=== PATIENT | male | born 1945 | race Caucasian/White ===

== ENCOUNTER 2016-07-11 12:29 | Inpatient (IN) | payer OTHER, MEDICARE, BC ==
--- NOTE | 2016-07-11 12:46 | ER Document Report ---
ED Medical Screen (RME) - General Chief Complaint: S/S of Possible Stroke Stated Complaint: GAIT UNSTEADY Time Seen by Provider: 07/11/16 12:46 Notes: 74-year-old male who is accompanied by a friend after being sent over by an outside facility for "confusion". Patient supposedly was unable to talk starting around 4 AM. Patient went on a piece of paper that it was 3 AM. Patient denies any headache, chest pain, weakness or numbness to the upper or lower extremities. The friend states the patient has had no recent illness, nausea, vomiting, or other review of systems. Patient has a history of a CABG, intracranial hemorrhage, stroke, and right-sided BKA. TRAVEL OUTSIDE OF THE [place] IN LAST 30 DAYS: No - Related Data Allergies/Adverse Reactions: No Known Allergies Allergy (Verified 07/11/16 12:35) Past Medical History - Past Medical History Cardiac Medical History: Reports: Hx Heart Attack, Hx Hypercholesterolemia, Hx Hypertension Pulmonary Medical History: Reports: Hx COPD Neurological Medical History: Reports: Hx Cerebrovascular Accident - Intracranial hemorrhage Endocrine Medical History: Reports: Hx Diabetes Mellitus Type 1, Hx Diabetes Mellitus Type 2 Renal/ Medical History: Denies: Hx Peritoneal Dialysis Musculoskeltal Medical History: Reports Hx Arthritis Psychiatric Medical History: Reports: Hx Dementia, Hx Depression Past Surgical History: Reports: Hx Abdominal Surgery - hernia, Hx Cardiac Catheterization - w/stents, Hx Coronary Stent, Hx Herniorrhaphy, Hx Orthopedic Surgery - RIGHT FOOT LISFRANC'S ORIF, Hx Tonsillectomy - and adnoids - Immunizations Hx Diphtheria, Pertussis, Tetanus Vaccination: Yes
[2016-07-11 13:18] LABS: ABSOLUTE BASOPHILS # (AUTO) 0.1 10^3/uL (0.0-0.2); ABSOLUTE EOSINOPHILS # (AUTO) 0.2 10^3/uL (0.0-0.6); ABSOLUTE LYMPHOCYTES (AUTO) 1.6 10^3/uL (0.5-4.7); ABSOLUTE MONOCYTES (AUTO) 0.7 10^3/uL (0.1-1.4); ABSOLUTE NEUT (AUTO) 5.2 10^3/uL (1.7-8.2); BASOPHILS % (AUTO) 0.7 % (0-2); HEMATOCRIT 41.2 % (37.9-51.0); HEMOGLOBIN 13.8 g/dL (13.5-17.0); HGB HCT DIFFERENCE 0.2; LYMPHOCYTES % (AUTO) 20.5 % (13-45); MEAN CORPUSCULAR HEMOGLOBIN 30.6 pg (27.0-33.4); MEAN CORPUSCULAR HGB CONC 33.4 g/dL (32.0-36.0); MEAN CORPUSCULAR VOLUME 92 fl (80-97); MONOCYTES % (AUTO) 8.7 % (3-13); RED CELL DISTRIBUTION WIDTH 14.8 % (11.5-14.0); SEGMENTED NEUTROPHILS % (AUTO) 68.1 % (42-78); WHITE BLOOD COUNT 7.7 10^3/uL (4.0-10.5)
[2016-07-11 13:27] LABS: PARTIAL THROMBOPLASTIN TIME 21.3 SEC (23.5-35.8); PROTHROMBIN TIME 11.7 SEC (11.4-15.4)
--- NOTE | 2016-07-11 13:47 | ER Document Report ---
ED General - General Chief Complaint: S/S of Possible Stroke Stated Complaint: POSSIBLE STROKE SYMPTOMS Time Seen by Provider: 07/11/16 12:46 Information source: Patient, Relative Cannot obtain history due to: Other Notes: Patient is aphasic 70-year-old male history of CVA coronary disease presents with inability to speak. Patient notes since 5:00 this morning he has been unable to speak appropriately. he understands everything that I state he has difficulty speaking and is unable to talk appropriately but is able to write on a piece of paper TRAVEL OUTSIDE OF THE [place] IN LAST 30 DAYS: No - HPI Onset: This morning Onset/Duration: Sudden Quality of pain: No pain Severity: Mild Pain Level: Denies Associated symptoms: Other Exacerbated by: Denies Relieved by: Denies Similar symptoms previously: Yes Recently seen / treated by doctor: Yes - Related Data Allergies/Adverse Reactions: No Known Allergies Allergy (Verified 07/11/16 12:35) Past Medical History - Social History Smoking Status: Current Every Day Smoker Cigarette use (# per day): Yes Chew tobacco use (# tins/day): No Smoking Education Provided: No Family History: Reviewed & Not Pertinent, DM Patient has suicidal ideation: No Patient has homicidal ideation: No - Past Medical History Cardiac Medical History: Reports: Hx Heart Attack, Hx Hypercholesterolemia, Hx Hypertension Pulmonary Medical History: Reports: Hx COPD Neurological Medical History: Reports: Hx Cerebrovascular Accident - Intracranial hemorrhage Endocrine Medical History: Reports: Hx Diabetes Mellitus Type 1, Hx Diabetes Mellitus Type 2 Renal/ Medical History: Denies: Hx Peritoneal Dialysis Musculoskeltal Medical History: Reports Hx Arthritis Psychiatric Medical History: Reports: Hx Dementia, Hx Depression Past Surgical History: Reports: Hx Abdominal Surgery - hernia, Hx Cardiac Catheterization - w/stents, Hx Coronary Stent, Hx Herniorrhaphy, Hx Orthopedic Surgery - RIGHT FOOT LISFRANC'S ORIF, Hx Tonsillectomy - and adnoids - Immunizations Hx Diphtheria, Pertussis, Tetanus Vaccination: Yes Hx Pneumococcal Vaccination: 11/27/11 Review of Systems - Review of Systems Notes: PHYSICAL EXAMINATION: GENERAL: Well-appearing, well-nourished and in no acute distress. HEAD: Atraumatic, normocephalic. EYES: Pupils equal round and reactive to light, extraocular movements intact, sclera anicteric, conjunctiva are normal. ENT: Nares patent, oropharynx clear without exudates. Moist mucous membranes. NECK: Normal range of motion, supple without lymphadenopathy LUNGS: Breath sounds clear to auscultation bilaterally and equal. No wheezes rales or rhonchi. HEART: Regular rate and rhythm without murmurs ABDOMEN: Soft, nontender, nondistended abdomen. No guarding, no rebound. No masses appreciated. Musculoskeletal: Normal range of motion, no pitting or edema. No cyanosis. NEUROLOGICAL: Cranial nerves grossly intact. Aphasia, normal gait. Normal sensory, motor exams PSYCH: Normal mood, normal affect. SKIN: Warm, Dry, normal turgor, no rashes or lesions noted. Physical Exam - Vital signs Vitals: Temp Pulse Resp BP Pulse Ox 97.9 F 55 L 18 181/67 H 95 07/11/16 12:38 07/11/16 12:38 07/11/16 12:38 07/11/16 12:38 07/11/16 12:38 Course - Re-evaluation Re-evalutation: 07/11/16 13:47 Dr. Cheung was paged 07/11/16 13:48 Patient is out of the timeframe for thrombolytics but has obvious CVA 07/11/16 13:50 Dr Man states he is not his patient 07/11/16 14:[address] Orellana - Vital Signs Vital signs: Temp Pulse Resp BP Pulse Ox 97.9 F 54 L 20 175/87 H 99 07/11/16 12:38 07/11/16 13:15 07/11/16 14:02 07/11/16 14:02 07/11/16 14:02 - Laboratory Result Diagrams: 07/11/16 13:00 07/11/16 14:00 Laboratory results interpreted by me: 07/11/16 07/11/16 07/11/16 13:00 13:00 14:00 RDW 14.8 H APTT 21.3 L Potassium 5.1 H BUN 26 H Glucose 184 H - Diagnostic Test Radiology reviewed: Image reviewed, Reports reviewed - Encephalomalacia Discharge - Discharge Clinical Impression: Aphasia Cerebrovascular accident (CVA) Qualifiers: CVA mechanism: unspecified Qualified Code(s): I63.9 - Cerebral infarction, unspecified Condition: Stable Disposition: ADMITTED INPATIENT Admitting Provider: Hospitalist Unit Admitted: Telemetry
[2016-07-11 14:46] LABS: ANION GAP 7 (5-19); BLOOD UREA NITROGEN 26 mg/dL (7-20); CALCIUM 9.3 mg/dL (8.4-10.2); CARBON DIOXIDE 29 mmol/L (22-30); CHLORIDE 102 mmol/L (98-107); CREATININE RESULT 1.05 mg/dL (0.52-1.25); GLUCOSE 184 mg/dL (75-110); POTASSIUM 5.1 mmol/L (3.6-5.0); SODIUM 138.2 mmol/L (137-145)
[2016-07-11] MEDS ORDERED: ASPIRIN 325 MG TABLET PO ONE (14:50)
[2016-07-11] MEDS ORDERED: DEXTROSE 50%-WATER 25 GM/50 ML DISP.SYRIN IV PRN ×2 (16:00)
[2016-07-11] MEDS ORDERED: ONDANSETRON HCL INJ/PF 4 MG/2 ML SDV IV PRN (16:00)
[2016-07-11] MEDS ORDERED: ACETAMINOPHEN 650 MG SUPP.RECT PR PRN (16:00)
[2016-07-11] MEDS ORDERED: DEXTROSE 40% GEL 15 GM TUBE PO PRN ×2 (16:00)
[2016-07-11] MEDS ORDERED: LABETALOL HCL INJ 20 MG/4 ML DISP.SYRIN IV PRN (16:00)
[2016-07-11] MEDS ORDERED: GLUCAGON,HUMAN RECOMB 1 MG INJ SUBCUT PRN (16:00)
--- NOTE | 2016-07-11 16:15 | ER Document Report ---
ED NIH Stroke Scale - NIH Stroke Scale When completed:: Before Alteplase *: 1. NIH scale should be completed with appropriate accompanying assessment tools. *: 2. The NIH should reflect what the patient is capable of doing and should not be coached by the clinician. 1a. Level of Consciousness: 0=Alert;keenly responsive -: 1=Drowsy -: 2=Obtunded -: 3=Coma/unresponsive or reflex to noxious stimuli. 1a. Responses: 0 1b. Orientation Questions: a. What month is it? -: b. How old are you? -: 0=Answers both questions correctly. -: 1=Answers one question correctly or patient is intubated or has orotracheal trauma. -: 2=Answers neither question correctly. 1b. Responses: 0 1c. Response to commands: a. Open and close eyes? -: b. Arm Rest Builder and release hand? -: Credit is given despite weakness. Demonstration of task is permitted. Substitute command if hands cannot be used. -: 0=Performs both tasks correctly -: 1=Performs one task correctly -: 2=Performs neither task correctly 1c. Responses: 0 2. Gaze: Establish eye contact and instruct patient to "Follow my finger" -: 0=Normal -: 1=Partial gaze palsy. Gaze is abnormal in one or both eyes, but where forced deviation or total gaze paresis is not present. -: 2=Forced deviation or total gaze paresis. 2. Responses: 0 3. Visual Spence: Sees fingers in all four quadrants. -: 0=No visual loss. -: 1=Partial hemianopsia. -: 2=Complete hemianopsia. -: 3=Bilateral hemianopsia (including Cortical blindness) 3. Responses: 0 4. Facial Movement: Instruct patient to: -: a. Show me your teeth -: b. Raise your eyebrows -: c. Close your eyes -: d. Smile -: 0=Normal symmetrical movement -: 1=Minor paralysis (flattened nasolabial fold, asymmetry on smiling). -: 2=Partial paralysis (total or near total paralysis of lower face). -: 3=Complete paralysis of upper and lower face 4. Responses: 0 5. Motor functions (left arm): Alternate sides and extend each arm with palms down (90 degrees if sitting or 45 degrees for supine). -: 0=No drift;limb holds for full 10 seconds. -: 1=Drift; limb holds but drifts down before full 10 seconds, but does not hit bed. -: 2=Some effort against gravity; limb cannot get to or maintain position. -: 3=No effort against gravity; limb falls. -: 4=No movement. -: UN=Amputation, joint fusion, explain in comments. 5. Responses (left arm): 0 5. Motor Functions (right arm): Alternate sides and extend each arm with palms down (90 degrees if sitting or 45 degrees for supine). -: 0=No drift;limb holds for full 10 seconds. -: 1=Drift; limb holds but drifts down before full 10 seconds, but does not hit bed. -: 2=Some effort against gravity; limb cannot get to or maintain position. -: 3=No effort against gravity; limb falls. -: 4=No movement. -: UN=Amputation, joint fusion, explain in comments. 5. Responses (right arm): 0 6. Motor Functions (left leg): With patient lying supine, alternate sides and extend each leg (30 degrees always while supine). -: 0=No drift, leg holds position for full 5 seconds -: 1=Drift; leg falls before full 5 seconds but does not hit bed. -: 2=Some effort against gravity, leg falls to bed but some effort against gravity. -: 3=No effort against gravity, leg falls to bed immediately. -: 4=No movement. -: UN=Amputation, joint fusion; explain in comments. 6. Responses (left leg): 0 6. Motor Functions (right leg): With patient lying supine, alternate sides and extend each leg (30 degrees always while supine). -: 0=No drift, leg holds position for full 5 seconds -: 1=Drift; leg falls before full 5 seconds but does not hit bed. -: 2=Some effort against gravity, leg falls to bed but some effort against gravity. -: 3=No effort against gravity, leg falls to bed immediately. -: 4=No movement. -: UN=Amputation, joint fusion; explain in comments. 6. Responses (right leg): 0 7. Limb Ataxia: With eyes open instruct patient to: -: a. "Touch your finger to your nose". -: b. "Touch your heel to your do" -: 0=Absent -: 1=Present in one limb. -: 2=Present in two limbs. -: UN=Amputation or joint fusion; explain in comments. 7. Responses: 0 8. Sensory: Test sensation using pinprick or noxious stimuli. Test as many body parts as possible. -: 0=Normal;no sensory loss -: 1=Mile to moderate sensory loss (patient feels pin prick but is less sharp on affected side). -: 2=Severe or total sensory loss. 8. Responses: 0 9. Best Language: Instruct patient to: -: a. "Describe what you see in this picture." -: b. "Name the items in this picture." -: c. "Read these sentences." -: 0=No aphasia, normal -: 1=Mild to moderate aphasia. -: 2=Severe aphasia -: 3=Mute, global aphasia, no usable speech or auditory comprehension. 9. Responses: 3 10. Articulation, Dysarthia: Instruct patient to: -: "Read these words" or "Repeat these words" -: 0=Normal -: 1=Mild to moderate; patient may slur some words but can be understood without difficulty. -: 2=Severe; patients speech so slurred as to be unintelligible in the absence of dysphasia. -: UN=Intubated or other physical barrier, explain in comments. 10. Responses: 2 11. Extinction or inattention: 0=No abnormality -: 1= Visual, tactile, auditory, spatial, or personal inattention or extinction to bilateral simulation in one or the sensory modalities. -: 2=Profound zaid-inattention or zaid-inattention to more than one modality; does not recognize own hand. 11. Responses: 0 Total Score: 5
--- NOTE | 2016-07-11 16:48 | PDOC H&P ---
History of Present Illness Admission Date/PCP: 07/11/16 16:01 Patient complains of: Aphasia History of Present Illness: MAHSA CORREA is a 70 year old male, with history of hypertension, type II diabetes mellitus, hyperlipidemia, prior strokes, cerebral aneurysm status post craniotomy and clipping brought to the emergency room because of inability to talk. Patient apparently was doing well until about early this morning upon waking up between 5-6 the patient is unable to talk. Patient thought it would get better. Patient had some drooling of saliva, but no choking sensation, no headache, double vision nor swallowing difficulty report. Symptom persisted, his brother called him and noticed that he is unable to talk and express himself. He was brought to the emergency room for evaluation. Patient denies any new focal weakness on the left or on the right. 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 There is no syncopal episode, dizziness. Patient is able to understand but unable to speak what he thinks. In the emergency room head CT shows chronic encephalomalacia on the right frontal lobe doubt any acute abnormality, with aneurysmal clips and craniotomy scar. Patient reports multiple stents and will not be able to have MRI. Patient was then referred for admission. Past Medical History Past Medical History: Medication reconciliation pending verification from the patient's pharmacist Cardiac Medical History: Reports: Coronary Artery Disease, Myocardial Infarction , Hyperlipidema, Hypertension Pulmonary Medical History: Reports: Chronic Obstructive Pulmonary Disease (COPD) , Sleep Apnea Neurological Medical History: Reports: Ischemic CVA - With minimal residual weakness, Other - Cerebral aneurysm Endocrine Medical History: Reports: Diabetes Mellitus Type 1, Diabetes Mellitus Type 2 Renal/ Medical History: Reports: Chronic Kidney Disease, Other - BPH Musculoskeltal Medical History: Reports: Arthritis Psychiatric Medical History: Reports: Dementia, Depression Past Surgical History Past Surgical History: Reports: Cardiac Catheterization - w/stents, Coronary Stent, Herniorrhaphy, Orthopedic Surgery - RIGHT FOOT LISFRANC'S ORIF, Tonsillectomy - and adnoids Social History Information Source: Relative Smoking Status: Current Every Day Smoker Frequency of Alcohol Use: None Hx Recreational Drug Use: No Drugs: None, Marijuana Hx Prescription Drug Abuse: No Family History Family History: DM Parental Family History Reviewed: Yes Children Family History Reviewed: Yes Sibling(s) Family History Reviewed.: Yes Medication/Allergy Allergies/Adverse Reactions: No Known Allergies Allergy (Verified 07/11/16 12:35) Review of Systems Constitutional: ABSENT: chills, fever(s), headache(s), night sweats, weight gain , weight loss Eyes: ABSENT: visual disturbances Ears: ABSENT: hearing changes Nose, Mouth, and Throat: ABSENT: headache(s), mouth pain, sore throat Cardiovascular: ABSENT: chest pain, dyspnea on exertion, edema, orthropnea, palpitations Respiratory: ABSENT: cough, dyspnea, hemoptysis Gastrointestinal: ABSENT: abdominal pain, constipation, diarrhea, hematemesis, hematochezia, melena, nausea, vomiting Genitourinary: ABSENT: difficulty urinating, dysuria, hematuria Musculoskeletal: PRESENT: other - Wears prostheses on the right lower extremity. ABSENT: back pain, joint swelling Integumentary: ABSENT: pruritus, rash, wounds Neurological: PRESENT: abnormal gait, abnormal speech. ABSENT: confusion, dizziness, focal weakness, syncope Psychiatric: ABSENT: anxiety, depression, homidical ideation, suicidal ideation Endocrine: ABSENT: cold intolerance, heat intolerance, polydipsia, polyuria Hematologic/Lymphatic: ABSENT: easy bleeding, easy bruising Physical Exam Vital Signs: Temp Pulse Resp BP Pulse Ox 97.9 F 54 L 22 H 149/74 H 100 07/11/16 12:38 07/11/16 13:15 07/11/16 15:01 07/11/16 15:01 07/11/16 15:01 General appearance: PRESENT: no acute distress, cooperative, obese Head exam: PRESENT: atraumatic, normocephalic Eye exam: PRESENT: conjunctiva pink, EOMI, PERRLA. ABSENT: scleral icterus Ear exam: PRESENT: normal external ear exam. ABSENT: drainage Mouth exam: PRESENT: moist, neck supple, tongue midline Throat exam: ABSENT: post pharyngeal erythema, tonsillar erythema Neck exam: ABSENT: carotid bruit, JVD, lymphadenopathy, thyromegaly Respiratory exam: PRESENT: clear to auscultation manan, unlabored. ABSENT: rales , rhonchi, wheezes Cardiovascular exam: PRESENT: RRR, +S1, +S2. ABSENT: diastolic murmur, gallop, rubs, systolic murmur Pulses: PRESENT: normal dorsalis pedis pul Vascular exam: PRESENT: normal capillary refill GI/Abdominal exam: PRESENT: normal bowel sounds, soft. ABSENT: distended, guarding, mass, organolmegaly, rebound, tenderness Rectal exam: PRESENT: deferred Extremities exam: PRESENT: full ROM, other - Leg paresthesias in the right/ below knee amputation on the right. ABSENT: calf tenderness, clubbing, pedal edema Neurological exam: PRESENT: alert, awake, other - Manual muscle testing is 4+ over 5 bilaterally both upper and lower extremity Psychiatric exam: PRESENT: appropriate affect, normal mood. ABSENT: homicidal ideation, suicidal ideation Skin exam: PRESENT: dry, intact, warm. ABSENT: cyanosis, rash Results Impressions: Head CT 07/11/16 12:47 IMPRESSION: Chronic encephalomalacia in the right frontal lobe with surgical changes and with no acute intracranial pathology. Assessment & Plan - Diagnosis (1) Aphasia Is this a current diagnosis for this admission?: Yes (2) Hyperkalemia Is this a current diagnosis for this admission?: Yes (3) Diabetes Qualifiers: Diabetes mellitus type: type 2 Diabetes mellitus complication status: with unspecified complications Diabetes mellitus residential insulin use: without residential use Qualified Code(s): E11.8 - Type 2 diabetes mellitus with unspecified complications Is this a current diagnosis for this admission?: Yes (4) Essential hypertension Is this a current diagnosis for this admission?: Yes (5) COPD (chronic obstructive pulmonary disease) Qualifiers: COPD type: unspecified COPD Qualified Code(s): J44.9 - Chronic obstructive pulmonary disease, unspecified Is this a current diagnosis for this admission?: Yes (6) Hyperlipidemia Qualifiers: Hyperlipidemia type: unspecified Qualified Code(s): E78.5 - Hyperlipidemia, unspecified Is this a current diagnosis for this admission?: Yes (7) Obstructive sleep apnea Is this a current diagnosis for this admission?: Yes (8) BPH (benign prostatic hyperplasia) Qualifiers: Prostatic enlargement morphology: unspecified morphology Lower urinary tract symptom presence: presence of symptoms unspecified Qualified Code(s ): N40.0 - Benign prostatic hyperplasia without lower urinary tract symptoms Is this a current diagnosis for this admission?: Yes (9) Dementia Qualifiers: Dementia type: unspecified type Dementia behavioral disturbance: without behavioral disturbance Qualified Code(s): F03.90 - Unspecified dementia without behavioral disturbance Is this a current diagnosis for this admission?: Yes (10) Coronary artery disease Qualifiers: Coronary Disease-Associated Artery/Lesion type: unspecified vessel or lesion type [place] vs. transplanted heart: [place] heart Associated angina: with unspecified angina Qualified Code(s): I25.119 - Atherosclerotic heart disease of [place] coronary artery with unspecified angina pectoris Is this a current diagnosis for this admission?: Yes - Time Time Spent: 50 to 70 Minutes - Inpatient Certification Based on my medical assessment, after consideration of the patient's comorbidities, presenting symptoms, or acuity I expect that the services needed warrant INPATIENT care.: Yes I certify that my determination is in accordance with my understanding of Medicare's requirements for reasonable and necessary INPATIENT services [42 CFR 412.3e].: Yes Medical Necessity: Need Close Monitoring Due to Risk of Patient Decompensation, Need for Neurological Checks, Risk of Diagnosis Which Will Require Inpatient Eval/Care/Monitoring Post Hospital Care: D/C Panel Beater Documentation - Plan Summary Plan Summary: The patient will be admitted to telemetry. Unable to do MRI due to multiple stents and clips from prior operations. We will do a follow-up CT of the brain 48 hours later. We will check carotid Doppler, 2-D echocardiogram, lipid panel , hemoglobin A1c. We will correct hyperkalemia and monitor electrolytes. We will have physical therapy as well as speech therapy to evaluate swallowing. I will hold basal insulin and put her on sliding scale at this time, keep him nothing by mouth except medications. DVT prophylaxis with Lovenox will be placed. Further testing depends on the initial evaluation as outlined above.
[2016-07-11] MEDS: INSULIN REG, HUMAN 100 UNIT/ML 3 ML VIAL (PYX) SUBCUT PRN ×2 (17:22→23:14)
[2016-07-11] MEDS ORDERED: SODIUM POLYSTYRENE SULFONATE 15 GM/60 ML PO ONE (17:30)
[2016-07-11] MEDS ORDERED: LABETALOL HCL INJ 200 MG/40 ML VIAL IV PRN (17:57)
[2016-07-11] MEDS ORDERED: ENOXAPARIN SODIUM INJ 40 MG/0.4 ML DISP.SYRIN SUBCUT ONE (18:00)
--- NOTE | 2016-07-11 22:13 | EKG REPORT ---
SEVERITY:- NORMAL ECG - SINUS RHYTHM : Confirmed by: Johanne Araiza MD 11-Jul-2016 22:11:42
[2016-07-11] MEDS: PRIMIDONE 50 MG TABLET PO SCH (23:01)
[2016-07-11] MEDS: MEMANTINE HCL 10 MG TABLET PO SCH (23:01)
[2016-07-11] MEDS: FAMOTIDINE INJ/PF 20 MG/2 ML SDV IV SCH (23:02)
[2016-07-11] MEDS: GABAPENTIN 100 MG CAPSULE PO SCH (23:02)
[2016-07-11] MEDS: DIVALPROEX SODIUM 250 MG TABLET.DR PO SCH (23:02)
[2016-07-12] MEDS: GABAPENTIN 100 MG CAPSULE PO SCH ×3 (06:00→23:21)
[2016-07-12] MEDS: ENOXAPARIN SODIUM INJ 40 MG/0.4 ML DISP.SYRIN SUBCUT SCH (08:00)
[2016-07-12] MEDS: FAMOTIDINE INJ/PF 20 MG/2 ML SDV IV SCH ×2 (10:00→23:22)
[2016-07-12] MEDS ORDERED: ASPIRIN 300 MG SUPP, RECTAL PR SCH (10:00)
[2016-07-12] MEDS: MEMANTINE HCL 10 MG TABLET PO SCH ×2 (10:00→23:22)
[2016-07-12] MEDS ORDERED: ASPIRIN 81 MG TABLET, ENT COATED PO ONE (11:41)
[2016-07-12] MEDS ORDERED: GABAPENTIN 100 MG CAPSULE ONE (15:37)
--- NOTE | 2016-07-12 16:36 | PROGRESS NOTE E ---
Progress Note NAME: MAHSA CORREA : 1945 AGE: 70Y DATE: 07/12/2016 ROOM: 315 SUBJECTIVE: No reported new weakness. Patient still unable to talk. Still unable to express himself. Patient denies any new weakness. Denies any choking sensation. No chest pain or shortness of breath. OBJECTIVE: VITAL SIGNS: Blood pressure highest systolic was 183, diastolic was 138 highest. Currently, systolic at 170 and diastolic at 74. Heart rate of 64. Respirations of 16. Patient's temperature 97.9. GENERAL: Patient is awake and alert. Responds to questions by nodding head or saying okay with a finger. HEENT: Extraocular muscle movements are intact. No significant facial asymmetry. NECK: There is no jugular venous distention on the neck. LUNGS: Lung sounds are clear to auscultation bilateral with no wheezing or rales. HEART: Regular. No gallops. ABDOMEN: Soft, nondistended, nontender. Bowel sounds are present. LOWER EXTREMITIES: Below-knee amputation on the right with leg prosthesis, not edematous on the left. Manual muscle testing is about 4/5 to 5/5 bilateral and equal. LABORATORY: Initial laboratory are pending. ASSESSMENT: 1. Expressive aphasia. 2. Hyperkalemia. 3. Type 2 diabetes mellitus without long-term use of insulin. 4. Essential hypertension. 5. Chronic obstructive pulmonary disease. 6. Hyperlipidemia. 7. Obstructive sleep apnea. 8. Benign prostatic hypertrophy. 9. Early dementia without behavioral disturbance. 10. Coronary artery disease without angina. PLAN: We will obtain a followup head CT in the morning. Awaiting carotid Doppler and 2-D echocardiogram. We will recheck potassium level. Physical therapy, as well as speech therapy evaluation. Continue antiplatelet therapy. Continue to hold antihypertensive medication at this time, other than as needed labetalol for systolic blood pressure greater than 180 and diastolic blood pressure greater than 110. DICTATING PHYSICIAN: ADRIANA SHEARER M.D. [id number] PHY#: [id number] ID: [id number] JOB#: [id number] ACCT: [id number] cc: >
--- NOTE | 2016-07-12 16:36 | XCELERA REPORT ---
[address] [address] Transthoracic Echocardiogram Report Name: MAHSA CORREA Age: 70 yrs Gender: Male : 1945 Patient Status: Inpatient Patient Location: \S\10\S\A Study Date: 07/12/2016 09:30 AM Height: 70 in Weight: 265 lb BSA: 2.4 m2 Procedure: A complete two-dimensional transthoracic echocardiogram was performed (2D, M-mode, spectral and color flow Doppler). The study was technically adequate with some images being suboptimal in quality. Reason For Study: stroke Ordering Physician: ADRIANA SHEARER Performed By: Marylin Doyle Interpretation Summary Left ventricular systolic function is low normal. There is mild concentric left ventricular hypertrophy. The left ventricle is grossly normal size. Doppler measurements suggest pseudonormalized left ventricular relaxation, which is associated with grade II/IV or mild to moderate diastolic dysfunction Wall motion cannot be accurately commented on, but no definite regional wall motion abnormalities noted. The right ventricle is mildly dilated. The right ventricular systolic function is normal. The left atrium is mildly dilated. The right atrium is normal in size There is a trace to mild amount of mitral regurgitation There is no mitral valve stenosis. There is no aortic valve stenosis There is a trace to mild amount of aortic regurgitation There is a trace or physiologic amount of tricuspid regurgitation Tricuspid regurgitation jet envelope not well defined to measure RV systolic pressure accurately. The aortic root is not well visualized. The inferior vena cava was not well visualized There is no pericardial effusion. No definite cardiac source of CVA/TIA noted on this particular trans- thoracic study. Consider MEL if clinically indicated. May consider mobile cardiac telemetry monitoring (MCT) for ruling out transient AFIB. MMode/2D Measurements \T\ Calculations RVDd: 3.9 cm LVIDd: 4.9 cm FS: 24.0 % Ao root diam: IVSd: 0.99 cm LVIDs: 3.7 cm EDV(Teich): 3.4 cm LVPWd: 0.86 cm 112.4 ml Ao root area: ESV(Teich): 58.8 ml 8.9 cm2 EF(Teich): 47.7 % LA dimension: 3.8 cm LVLd ap4: 8.4 cm SV(MOD-sp4): EDV(MOD-sp4): 64.0 ml 108.0 ml LVLs ap4: 7.1 cm ESV(MOD-sp4): 44.0 ml EF(MOD-sp4): 59.3 % Doppler Measurements \T\ Calculations MV E max lauri: MV P1/2t max lauri: Ao V2 max: AI max lauri: 48.4 cm/sec 48.9 cm/sec 127.7 cm/sec 392.3 cm/sec MV A max lauri: MV P1/2t: Ao max PG: AI max P.8 cm/sec 178.4 msec 6.5 mmHg 61.6 mmHg MV E/A: 0.52 MVA(P1/2t): 1.2 cm2 AI dec slope: MV dec slope: 166.5 cm/sec2 80.2 cm/sec2 AI P1/2t: MV dec time: 690.2 msec 0.58 sec LV V1 max PG: PA V2 max: TR max lauri: 5.2 mmHg 68.1 cm/sec 188.9 cm/sec LV V1 max: PA max P.9 mmHg TR max P.0 cm/sec 14.3 mmHg Left Ventricle The left ventricle is grossly normal size. There is mild concentric left ventricular hypertrophy. Left ventricular systolic function is low normal. Doppler measurements suggest pseudonormalized left ventricular relaxation, which is associated with grade II/IV or mild to moderate diastolic dysfunction. Wall motion cannot be accurately commented on, but no definite regional wall motion abnormalities noted. Right Ventricle The right ventricle is mildly dilated. There is normal right ventricular wall thickness. The right ventricular systolic function is normal. Atria The right atrium is normal in size. The left atrium is mildly dilated. Interarterial septum not well visualized and not well dopplered. Cannot comment on ASD/PFO presence. Mitral Valve The mitral valve is grossly normal. There is no mitral valve stenosis. There is a trace to mild amount of mitral regurgitation. Aortic Valve The aortic valve is grossly normal. There is no aortic valve stenosis. There is a trace to mild amount of aortic regurgitation. Tricuspid Valve The tricuspid valve is not well visualized, but is grossly normal. There is no tricuspid stenosis. There is a trace or physiologic amount of tricuspid regurgitation. Tricuspid regurgitation jet envelope not well defined to measure RV systolic pressure accurately. Pulmonic Valve The pulmonic valve is not well visualized. Great Vessels The aortic root is not well visualized. The inferior vena cava was not well visualized. Effusions There is no pericardial effusion. Incidental Findings No definite cardiac source of CVA/TIA noted on this particular trans- thoracic study. Consider MEL if clinically indicated. May consider mobile cardiac telemetry monitoring (MCT) for ruling out transient AFIB. : ADRIANA SHEARER > Yari Gaona
[2016-07-12] MEDS: DIVALPROEX SODIUM 250 MG TABLET.DR PO SCH (23:21)
[2016-07-12] MEDS: PRIMIDONE 50 MG TABLET PO SCH (23:21)
[2016-07-12] MEDS: INSULIN LISPRO 100 UNIT/ML 3 ML VIAL SUBCUT PRN (23:22)
[2016-07-13] MEDS: GABAPENTIN 100 MG CAPSULE PO SCH ×3 (05:40→21:46)
[2016-07-13] MEDS: ASPIRIN 81 MG TABLET, CHEWABLE PO SCH (10:51)
[2016-07-13] MEDS: FAMOTIDINE INJ/PF 20 MG/2 ML SDV IV SCH ×2 (10:51→21:48)
[2016-07-13] MEDS: MEMANTINE HCL 10 MG TABLET PO SCH ×2 (10:51→21:47)
[2016-07-13] MEDS: ENOXAPARIN SODIUM INJ 40 MG/0.4 ML DISP.SYRIN SUBCUT SCH (10:52)
--- NOTE | 2016-07-13 11:45 | Physician Advisory Note ---
Physician Advisor ProgressNote .: Pursuant to the plan for [facility], I have reviewed the medical record for this patient. Physician Advisor Statement: Possible documentation opportunities if attending agrees: 1. "acute expressive aphasia, suspect due to " [need causality of "sx dx.s" spelled out explicitly] As always, if concerned about any unstable VS or abnormal labs, please comment on them & note what doing about them, & please document each day the potential clinical problems you are concerned could occur if pt not kept in hospital for tx at this time. Thanks for your help with documentation accuracy/specificity improvement! Marge Short MD [facility] Physician Advisor, Fellow of Hospital Medicine
[2016-07-13] MEDS: INSULIN LISPRO 100 UNIT/ML 3 ML VIAL SUBCUT PRN ×3 (13:25→21:48)
--- NOTE | 2016-07-13 13:34 | PROGRESS NOTE E ---
Progress Note NAME: MAHSA CORREA : 1945 AGE: 70Y DATE: 07/13/2016 ROOM: 315 SUBJECTIVE: There is no new weakness reported. Patient still unable to voice out or express himself. There is no new focal weakness. Denies any swallowing difficulty. Tolerating oral intake well. Noted, however, to have dark urine. Patient denies any dizziness or syncope. OBJECTIVE: VITAL SIGNS: Blood pressure 164/76, a pulse 63, respirations 20. Patient is afebrile. Speech: Patient remains aphasic. NECK: There is no jugular venous distention. CARDIAC: Heart is regular with no gallops or murmurs. . RESPIRATORY: Lung sounds are clear to auscultation bilateral. No wheezing or rales. ABDOMEN: Is soft, nondistended. Bowel sounds are present. EXTREMITIES: Lower extremity nonedematous on the left. Below-knee amputation on the right. LABORATORY: CT scan shows no acute abnormality. ASSESSMENT: 1. EXPRESSIVE APHASIA. 2. HYPERKALEMIA. 3. TYPE 2 DIABETES MELLITUS WITHOUT LONG-TERM USE OF INSULIN. 4. HYPERTENSION, ESSENTIAL. 5. CHRONIC OBSTRUCTIVE PULMONARY DISEASE. 6. HYPERLIPIDEMIA. 7. OBSTRUCTIVE SLEEP APNEA. 8. BPH. 9. EARLY DEMENTIA WITHOUT BEHAVIORAL DISTURBANCE. 10. CORONARY ARTERY DISEASE WITHOUT ANGINA. PLAN: 1. We will obtain a urinalysis and a urine culture. 2. Awaiting carotid Doppler. Echocardiogram did not reveal any significant valvular defect. In the meantime, blood pressure seems to be getting uncontrolled. I will resume antihypertensive medications. We will begin him on metoprolol as well as lisinopril. We will, likewise, begin his Lipitor. Awaiting rehabilitation recommendation. DICTATING PHYSICIAN: ADRIANA SHEARER M.D. [id number] [id number] ID: [id number] JOB#: [id number] ACCT: [id number] cc: >
[2016-07-13 17:45] LABS: ANION GAP 7 (5-19); BLOOD UREA NITROGEN 18 mg/dL (7-20); CARBON DIOXIDE 30 mmol/L (22-30); CHLORIDE 104 mmol/L (98-107); CHOLESTEROL 133.45 mg/dL (0-200); CREATININE RESULT 0.96 mg/dL (0.52-1.25); GLUCOSE 174 mg/dL (75-110); POTASSIUM 4.3 mmol/L (3.6-5.0); TRIGLYCERIDES 370 mg/dL (<150)
[2016-07-13 17:46] LABS: DIRECT LDL 48 mg/dL (<100); Direct HDL 38 mg/dL (>40)
[2016-07-13 20:51] LABS: APPEARANCE,URINE SLIGHTLY-CLOUDY; BILIRUBIN,URINE NEGATIVE (NEGATIVE); GLUCOSE, URINE 150 mg/dL (NEGATIVE); KETONES,URINE NEGATIVE (NEGATIVE); LEUKOCYTE ESTERASE,URINE LARGE (NEGATIVE); NITRITE,URINE POSITIVE (NEGATIVE); PROTEIN,URINE 30 mg/dL (NEGATIVE); URINE SPECIFIC GRAVITY 1.013; UROBILINOGEN,URINE NEGATIVE mg/dL (<2.0)
[2016-07-13] MEDS: METOPROLOL TARTRATE 25 MG TABLET PO SCH (21:46)
[2016-07-13] MEDS: PRIMIDONE 50 MG TABLET PO SCH (21:46)
[2016-07-13] MEDS: ATORVASTATIN CALCIUM 40 MG TABLET PO SCH (21:47)
[2016-07-13] MEDS: TAMSULOSIN HCL 0.4 MG CAP.SR.24H PO SCH (21:47)
[2016-07-13] MEDS: DIVALPROEX SODIUM 250 MG TABLET.DR PO SCH (21:47)
[2016-07-14] MEDS: GABAPENTIN 100 MG CAPSULE PO SCH ×3 (06:02→22:15)
[2016-07-14 07:18] LABS: ANION GAP 10 (5-19); BLOOD UREA NITROGEN 13 mg/dL (7-20); CALCIUM 8.9 mg/dL (8.4-10.2); CARBON DIOXIDE 27 mmol/L (22-30); CHLORIDE 102 mmol/L (98-107); CREATININE RESULT 0.97 mg/dL (0.52-1.25); GLUCOSE 202 mg/dL (75-110); POTASSIUM 4.2 mmol/L (3.6-5.0); SODIUM 139.3 mmol/L (137-145)
[2016-07-14] MEDS ORDERED: ERTAPENEM SODIUM INJ 1 GM VIAL IV ONE (10:31)
--- NOTE | 2016-07-14 10:44 | PDOC PROGRESS REPORT ---
Subjective Progress Note for:: 07/14/16 Subjective:: Able to utter some words but still aphasic. No SOB, N/V, CP, chill, fever, SOB. Urinalysis showed gram neg rods on culture. Prior hx shows multiple ESBL e.coli UTI. Physical Exam Vital Signs: Temp Pulse Resp BP Pulse Ox 98.4 F 55 L 12 168/62 H 96 07/14/16 07:14 07/14/16 07:14 07/14/16 07:14 07/14/16 07:14 07/14/16 07:14 Intake & Output 07/13/16 07/14/16 07/15/16 06:59 06:59 06:59 Intake Total 220 595 Balance 220 595 Weight 98.4 kg 97.4 kg General appearance: PRESENT: no acute distress, cooperative Head exam: PRESENT: normocephalic Eye exam: PRESENT: conjunctiva pink, EOMI Mouth exam: PRESENT: moist, neck supple Neck exam: ABSENT: JVD Respiratory exam: PRESENT: clear to auscultation manan Cardiovascular exam: PRESENT: RRR. ABSENT: gallop GI/Abdominal exam: PRESENT: soft. ABSENT: distended, tenderness Extremities exam: PRESENT: other - BKA on R.. ABSENT: pedal edema Neurological exam: PRESENT: alert, awake Skin exam: PRESENT: dry, warm. ABSENT: cyanosis Results Laboratory Results: 07/14/16 06:42 07/12/16 07/12/16 07/13/16 06:00 09:15 18:10 Sodium 141.0 Potassium 4.3 4.4 Chloride 104 Carbon Dioxide 30 Anion Gap 7 BUN 18 Creatinine 0.96 Est GFR ( Amer) > 60 Est GFR (Non-Af Amer) > 60 Glucose 174 H Calcium 9.0 Triglycerides 370 H Cholesterol 133.45 LDL Cholesterol Direct 48 VLDL Cholesterol 74.0 H HDL Cholesterol 38 L Urine Color YELLOW Urine Appearance SLIGHTLY-CLOUDY Urine pH 7.0 Ur Specific [place] 1.013 Urine Protein 30 H Urine Glucose (UA) 150 H Urine Ketones NEGATIVE Urine Blood SMALL H Urine Nitrite POSITIVE H Ur Leukocyte Esterase LARGE H Urine WBC (Auto) 59 Urine RBC (Auto) 5 07/14/16 06:42 Sodium 139.3 Potassium 4.2 Chloride 102 Carbon Dioxide 27 Anion Gap 10 BUN 13 Creatinine 0.97 Est GFR ( Amer) > 60 Est GFR (Non-Af Amer) > 60 Glucose 202 H Calcium 8.9 Triglycerides Cholesterol LDL Cholesterol Direct VLDL Cholesterol HDL Cholesterol Urine Color Urine Appearance Urine pH Ur Specific [place] Urine Protein Urine Glucose (UA) Urine Ketones Urine Blood Urine Nitrite Ur Leukocyte Esterase Urine WBC (Auto) Urine RBC (Auto) Impressions: Carotid Doppler Study 07/12/16 00:00 IMPRESSION: NO HEMODYNAMICALLY SIGNIFICANT STENOSIS. Head CT 07/13/16 06:00 IMPRESSION: Postsurgical and chronic ischemic changes. No acute findings. 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 mellitus salvage determiner insulin use: without salvage determiner use Qualified Code(s): E11.8 - Type 2 diabetes mellitus with unspecified complications; Z79.4 - manager terminal (current) use of insulin Is this a current diagnosis for this admission?: Yes (5) Essential hypertension Is this a current diagnosis for this admission?: Yes (6) COPD (chronic obstructive pulmonary disease) Qualifiers: COPD type: unspecified COPD Qualified Code(s): J44.9 - Chronic obstructive pulmonary disease, unspecified Is this a current diagnosis for this admission?: Yes (7) Hyperlipidemia Qualifiers: Hyperlipidemia type: unspecified Qualified Code(s): E78.5 - Hyperlipidemia, unspecified Is this a current diagnosis for this admission?: Yes (8) Obstructive sleep apnea Is this a current diagnosis for this admission?: Yes (9) BPH (benign prostatic hyperplasia) Qualifiers: Prostatic enlargement morphology: unspecified morphology Lower urinary tract symptom presence: presence of symptoms unspecified Qualified Code(s ): N40.0 - Benign prostatic hyperplasia without lower urinary tract symptoms Is this a current diagnosis for this admission?: Yes (10) Dementia Qualifiers: Dementia type: unspecified type Dementia behavioral disturbance: without behavioral disturbance Qualified Code(s): F03.90 - Unspecified dementia without behavioral disturbance Is this a current diagnosis for this admission?: Yes (11) Coronary artery disease Qualifiers: Coronary Disease-Associated Artery/Lesion type: unspecified vessel or lesion type [place] vs. transplanted heart: [place] heart Associated angina: with unspecified angina Qualified Code(s): I25.119 - Atherosclerotic heart disease of [place] coronary artery with unspecified angina pectoris Is this a current diagnosis for this admission?: Yes - Time Time Spent with patient: 25-34 minutes - Plan Summary Plan Summary: Patients expressive aphasia may be related to stroke. Cont. Current meds. BP is elevated. Re-start anti-hypertensive medications. Begin Invanz, multiple ESBL UTI on hx.
[2016-07-14] MEDS: METOPROLOL TARTRATE 25 MG TABLET PO SCH ×2 (11:00→22:15)
[2016-07-14] MEDS ORDERED: CEFTRIAXONE 1 GM/D5W RTU 50 ML IV SCH (11:00)
[2016-07-14] MEDS: FAMOTIDINE INJ/PF 20 MG/2 ML SDV IV SCH ×2 (11:15→22:12)
[2016-07-14] MEDS: LISINOPRIL 10 MG TABLET PO SCH (11:15)
[2016-07-14] MEDS: ASPIRIN 81 MG TABLET, CHEWABLE PO SCH (11:15)
[2016-07-14] MEDS: AMLODIPINE BESYLATE 5 MG TABLET PO SCH (11:16)
[2016-07-14] MEDS: FUROSEMIDE 40 MG TABLET PO SCH (11:16)
[2016-07-14] MEDS: MEMANTINE HCL 10 MG TABLET PO SCH ×2 (11:17→22:15)
[2016-07-14] MEDS: ENOXAPARIN SODIUM INJ 40 MG/0.4 ML DISP.SYRIN SUBCUT SCH (11:18)
[2016-07-14] MEDS ORDERED: METOPROLOL TARTRATE 25 MG TABLET PO ONE (11:30)
[2016-07-14] MEDS: ERTAPENEM SODIUM 1 GM in NORMAL SALINE 50 ML IV SCH (14:40)
[2016-07-14] MEDS: INSULIN LISPRO 100 UNIT/ML 3 ML VIAL SUBCUT PRN (22:11)
[2016-07-14] MEDS: ATORVASTATIN CALCIUM 40 MG TABLET PO SCH (22:13)
[2016-07-14] MEDS: DIVALPROEX SODIUM 250 MG TABLET.DR PO SCH (22:14)
[2016-07-14] MEDS: TAMSULOSIN HCL 0.4 MG CAP.SR.24H PO SCH (22:16)
[2016-07-14] MEDS: PRIMIDONE 50 MG TABLET PO SCH (22:16)
[2016-07-15] MEDS: GABAPENTIN 100 MG CAPSULE PO SCH ×3 (06:48→22:04)
[2016-07-15] MEDS: LISINOPRIL 10 MG TABLET PO SCH (08:51)
[2016-07-15] MEDS: ASPIRIN 81 MG TABLET, CHEWABLE PO SCH (08:52)
[2016-07-15] MEDS: MEMANTINE HCL 10 MG TABLET PO SCH ×2 (08:52→21:57)
[2016-07-15] MEDS: METOPROLOL TARTRATE 25 MG TABLET PO SCH ×2 (08:52→21:58)
[2016-07-15] MEDS: FUROSEMIDE 40 MG TABLET PO SCH (08:52)
[2016-07-15] MEDS: FAMOTIDINE INJ/PF 20 MG/2 ML SDV IV SCH ×2 (08:53→21:58)
[2016-07-15] MEDS: INSULIN LISPRO 100 UNIT/ML 3 ML VIAL SUBCUT PRN ×2 (08:53→22:00)
[2016-07-15] MEDS: ENOXAPARIN SODIUM INJ 40 MG/0.4 ML DISP.SYRIN SUBCUT SCH (08:53)
--- NOTE | 2016-07-15 09:29 | PDOC PROGRESS REPORT ---
Subjective Progress Note for:: 07/15/16 Subjective:: Able to utter some words but still aphasic. No SOB, N/V, CP, chill, fever, SOB. Urinalysis showed gram neg rods on culture. Prior hx shows multiple ESBL e.coli UTI. Per microlaboratory, looks like ESBL. Physical Exam Vital Signs: Temp Pulse Resp BP Pulse Ox 97.9 F 62 16 146/63 H 96 07/15/16 07:28 07/15/16 07:28 07/15/16 07:28 07/15/16 07:28 07/15/16 07:28 Intake & Output 07/14/16 07/15/16 07/16/16 06:59 06:59 06:59 Intake Total 595 1523 Output Total 0 Balance 595 1523 Weight 97.4 kg 97 kg General appearance: PRESENT: no acute distress Head exam: PRESENT: normocephalic Eye exam: PRESENT: EOMI Mouth exam: PRESENT: moist, neck supple Neck exam: ABSENT: JVD Respiratory exam: PRESENT: clear to auscultation manan. ABSENT: rhonchi, wheezes Cardiovascular exam: PRESENT: RRR. ABSENT: gallop GI/Abdominal exam: PRESENT: soft. ABSENT: distended, tenderness Extremities exam: ABSENT: pedal edema Neurological exam: PRESENT: alert, awake, aphasic Skin exam: PRESENT: dry, warm. ABSENT: cyanosis Results Laboratory Results: 07/14/16 06:42 Impressions: Carotid Doppler Study 07/12/16 00:00 IMPRESSION: NO HEMODYNAMICALLY SIGNIFICANT STENOSIS. Head CT 07/13/16 06:00 IMPRESSION: Postsurgical and chronic ischemic changes. No acute findings. 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 insulin use: without usp use Qualified Code(s): E11.8 - Type 2 diabetes mellitus with unspecified complications; 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.4 - 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 plant operator (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) use of insulin Is this a current diagnosis for this admission?: Yes (5) Essential hypertension Is this a current diagnosis for this admission?: Yes (6) COPD (chronic obstructive pulmonary disease) Qualifiers: COPD type: unspecified COPD Qualified Code(s): J44.9 - Chronic obstructive pulmonary disease, unspecified Is this a current diagnosis for this admission?: Yes (7) Hyperlipidemia Qualifiers: Hyperlipidemia type: unspecified Qualified Code(s): E78.5 - Hyperlipidemia, unspecified Is this a current diagnosis for this admission?: Yes (8) Obstructive sleep apnea Is this a current diagnosis for this admission?: Yes (9) BPH (benign prostatic hyperplasia) Qualifiers: Prostatic enlargement morphology: unspecified morphology Lower urinary tract symptom presence: presence of symptoms unspecified Qualified Code(s ): N40.0 - Benign prostatic hyperplasia without lower urinary tract symptoms Is this a current diagnosis for this admission?: Yes (10) Dementia Qualifiers: Dementia type: unspecified type Dementia behavioral disturbance: without behavioral disturbance Qualified Code(s): F03.90 - Unspecified dementia without behavioral disturbance Is this a current diagnosis for this admission?: Yes (11) Coronary artery disease Qualifiers: Coronary Disease-Associated Artery/Lesion type: unspecified vessel or lesion type [place] vs. transplanted heart: [place] heart Associated angina: with unspecified angina Qualified Code(s): I25.119 - Atherosclerotic heart disease of [place] coronary artery with unspecified angina pectoris Is this a current diagnosis for this admission?: Yes - Time Time Spent with patient: Less than 15 minutes - Plan Summary Plan Summary: Continue current antibiotics, PT and medications. PICC line placement for IV antibiotics for 10 days total.
[2016-07-15] MEDS ORDERED: ERTAPENEM SODIUM INJ 1 GM VIAL IV SCH (10:00)
[2016-07-15] MEDS: ERTAPENEM SODIUM 1 GM in NORMAL SALINE 50 ML IV SCH (14:45)
[2016-07-15] MEDS: AMLODIPINE BESYLATE 5 MG TABLET PO SCH (14:45)
[2016-07-15] MEDS: TAMSULOSIN HCL 0.4 MG CAP.SR.24H PO SCH (21:57)
[2016-07-15] MEDS: DIVALPROEX SODIUM 250 MG TABLET.DR PO SCH (21:57)
[2016-07-15] MEDS: PRIMIDONE 50 MG TABLET PO SCH (21:59)
[2016-07-15] MEDS: ATORVASTATIN CALCIUM 40 MG TABLET PO SCH (21:59)
[2016-07-16] MEDS: GABAPENTIN 100 MG CAPSULE PO SCH ×3 (06:27→22:01)
[2016-07-16] MEDS: ENOXAPARIN SODIUM INJ 40 MG/0.4 ML DISP.SYRIN SUBCUT SCH (08:53)
[2016-07-16] MEDS: INSULIN LISPRO 100 UNIT/ML 3 ML VIAL SUBCUT PRN ×3 (08:53→22:00)
[2016-07-16] MEDS: FAMOTIDINE INJ/PF 20 MG/2 ML SDV IV SCH ×2 (08:54→22:00)
[2016-07-16] MEDS: ASPIRIN 325 MG TABLET PO SCH (08:54)
[2016-07-16] MEDS: FUROSEMIDE 40 MG TABLET PO SCH (08:55)
[2016-07-16] MEDS: LISINOPRIL 10 MG TABLET PO SCH (08:55)
[2016-07-16] MEDS: MEMANTINE HCL 10 MG TABLET PO SCH ×2 (08:55→22:00)
[2016-07-16] MEDS: METOPROLOL TARTRATE 25 MG TABLET PO SCH ×2 (08:55→22:00)
--- NOTE | 2016-07-16 11:38 | PDOC PROGRESS REPORT ---
Subjective Progress Note for:: 07/16/16 Subjective:: Still w/ aphasia. Denies pain, SOB, chills nor fever. Physical Exam Vital Signs: Temp Pulse Resp BP Pulse Ox 98.3 F 54 L 16 166/69 H 94 07/16/16 07:38 07/16/16 07:38 07/16/16 07:38 07/16/16 07:38 07/16/16 07:38 Intake & Output 07/15/16 07/16/16 07/17/16 06:59 06:59 06:59 Intake Total 1523 850 Output Total 0 Balance 1523 850 Weight 97 kg 96.9 kg General appearance: PRESENT: no acute distress, cooperative, obese Eye exam: PRESENT: EOMI Mouth exam: PRESENT: moist, neck supple Neck exam: ABSENT: JVD Respiratory exam: PRESENT: clear to auscultation manan Cardiovascular exam: PRESENT: RRR. ABSENT: gallop GI/Abdominal exam: PRESENT: normal bowel sounds, soft Extremities exam: PRESENT: other - BKA on R. ABSENT: pedal edema - L Neurological exam: PRESENT: alert, awake Skin exam: PRESENT: dry, warm. ABSENT: cyanosis Results Laboratory Results: 07/14/16 06:42 Impressions: Carotid Doppler Study 07/12/16 00:00 IMPRESSION: NO HEMODYNAMICALLY SIGNIFICANT STENOSIS. Head CT 07/13/16 06:00 IMPRESSION: Postsurgical and chronic ischemic changes. No acute findings. 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 mellitus rat exterminator insulin use: without [facility] use Qualified Code(s): E11.8 - Type 2 diabetes mellitus with unspecified complications; Z79.4 - termite technician (current) use of insulin Is this a current diagnosis for this admission?: Yes (5) Essential hypertension Is this a current diagnosis for this admission?: Yes (6) COPD (chronic obstructive pulmonary disease) Qualifiers: COPD type: unspecified COPD Qualified Code(s): J44.9 - Chronic obstructive pulmonary disease, unspecified Is this a current diagnosis for this admission?: Yes (7) Hyperlipidemia Qualifiers: Hyperlipidemia type: unspecified Qualified Code(s): E78.5 - Hyperlipidemia, unspecified Is this a current diagnosis for this admission?: Yes (8) Obstructive sleep apnea Is this a current diagnosis for this admission?: Yes (9) BPH (benign prostatic hyperplasia) Qualifiers: Prostatic enlargement morphology: unspecified morphology Lower urinary tract symptom presence: presence of symptoms unspecified Qualified Code(s ): N40.0 - Benign prostatic hyperplasia without lower urinary tract symptoms Is this a current diagnosis for this admission?: Yes (10) Dementia Qualifiers: Dementia type: unspecified type Dementia behavioral disturbance: without behavioral disturbance Qualified Code(s): F03.90 - Unspecified dementia without behavioral disturbance Is this a current diagnosis for this admission?: Yes (11) Coronary artery disease Qualifiers: Coronary Disease-Associated Artery/Lesion type: unspecified vessel or lesion type [place] vs. transplanted heart: [place] heart Associated angina: with unspecified angina Qualified Code(s): I25.119 - Atherosclerotic heart disease of [place] coronary artery with unspecified angina pectoris Is this a current diagnosis for this admission?: Yes - Time Time Spent with patient: Less than 15 minutes - Plan Summary Plan Summary: PICC line in am. Continue antibiotics.
[2016-07-16] MEDS: ERTAPENEM SODIUM 1 GM in NORMAL SALINE 50 ML IV SCH (13:05)
[2016-07-16] MEDS: AMLODIPINE BESYLATE 5 MG TABLET PO SCH (13:05)
[2016-07-16] MEDS: ATORVASTATIN CALCIUM 40 MG TABLET PO SCH (22:00)
[2016-07-16] MEDS: TAMSULOSIN HCL 0.4 MG CAP.SR.24H PO SCH (22:00)
[2016-07-16] MEDS: DIVALPROEX SODIUM 250 MG TABLET.DR PO SCH (22:00)
[2016-07-16] MEDS: PRIMIDONE 50 MG TABLET PO SCH (22:01)
[2016-07-17] MEDS: GABAPENTIN 100 MG CAPSULE PO SCH ×2 (05:19→14:14)
[2016-07-17] MEDS: ENOXAPARIN SODIUM INJ 40 MG/0.4 ML DISP.SYRIN SUBCUT SCH (07:36)
[2016-07-17] MEDS: METOPROLOL TARTRATE 25 MG TABLET PO SCH (11:16)
[2016-07-17] MEDS: ASPIRIN 325 MG TABLET PO SCH (11:17)
[2016-07-17] MEDS: MEMANTINE HCL 10 MG TABLET PO SCH (11:17)
[2016-07-17] MEDS: LISINOPRIL 10 MG TABLET PO SCH (11:17)
[2016-07-17] MEDS: FUROSEMIDE 40 MG TABLET PO SCH (11:17)
[2016-07-17] MEDS: FAMOTIDINE INJ/PF 20 MG/2 ML SDV IV SCH (11:18)
[2016-07-17] MEDS: INSULIN LISPRO 100 UNIT/ML 3 ML VIAL SUBCUT PRN (11:19)
[2016-07-17] MEDS: AMLODIPINE BESYLATE 5 MG TABLET PO SCH (11:21)
[2016-07-17] MEDS: ERTAPENEM SODIUM 1 GM in NORMAL SALINE 50 ML IV SCH (11:22)
[2016-07-17] MEDS ORDERED: NORMAL SALINE 10 ML SDV (AFTER EACH USE) IV PRN (11:56)
--- NOTE | 2016-07-17 12:08 | PDOC DISCHARGE SUMMARY ---
General - Admit/Disc Date/PCP Admission Date/Primary Care Provider: 07/11/16 16:01 Discharge Date: 07/17/16 - Discharge Diagnosis (1) CVA (cerebral vascular accident) Is this a current diagnosis for this admission?: Yes (2) Aphasia Is this a current diagnosis for this admission?: YesSummary: Secondary to stroke (3) UTI (urinary tract infection) Is this a current diagnosis for this admission?: Yes (4) Hyperkalemia Is this a current diagnosis for this admission?: Yes (5) Diabetes Is this a current diagnosis for this admission?: Yes (6) Essential hypertension Is this a current diagnosis for this admission?: Yes (7) COPD (chronic obstructive pulmonary disease) Is this a current diagnosis for this admission?: Yes (8) Hyperlipidemia Is this a current diagnosis for this admission?: Yes (9) Obstructive sleep apnea Is this a current diagnosis for this admission?: Yes (10) BPH (benign prostatic hyperplasia) Is this a current diagnosis for this admission?: Yes (11) Dementia Is this a current diagnosis for this admission?: Yes (12) Coronary artery disease Is this a current diagnosis for this admission?: Yes - Additional Information Discharge Diet: Cardiac, Diabetic, Other (Comments) - mechanical soft with cut meats Discharge Activity: Activity As Tolerated, Balance Activity w/Rest, Slowly Increase Activity Home Medications: Amlodipine Besylate [Norvasc 5 mg Tablet] 5 mg PO DAILY 07/12/16 Atorvastatin Calcium [Lipitor 40 mg Tablet] 40 mg PO QHS 07/12/16 Divalproex Sodium [Divalproex Sodium ER] 500 mg PO QHS 07/12/16 Donepezil HCl [Aricept] 20 mg PO DAILY 07/12/16 Furosemide [Lasix] 40 mg PO DAILY 07/12/16 Gabapentin [Neurontin 100 mg Capsule] 100 mg PO Q8 07/12/16 Insulin Aspart Protam & Aspart [Novolog Mix 70-30 Vial] 50 unit SQ BIDACBS 07/12 Lisinopril [Prinivil 40 mg Tablet] 40 mg PO DAILY 07/12/16 Memantine HCl [Namenda 10 mg Tablet] 10 mg PO BID 07/12/16 Metformin HCl [Glucophage XR 500 mg Tablet] 500 mg PO DAILY 07/12/16 Primidone [Mysoline 50 mg Tablet] 100 mg PO QHS 07/12/16 Tamsulosin HCl [Flomax 0.4 mg Cap.sr] 0.8 mg PO QHS 07/12/16 Aspirin/Dipyridamole [Aggrenox 25 mg-200 mg Capsule] 1 each PO BID #60 cpmp.12hr 07/17/16 Ertapenem Sodium [Invanz Inj 1 gm Vial] 1 gm IVPB DAILY #10 vial 07/17/16 Metoprolol Tartrate [Lopressor 25 mg Tablet] 25 mg PO Q12 #60 tablet 07/17/16 Additional Information: Home health for physical therapy, speech therapy, IV infusion of Invanz for 10 days, and removal of PICC line once IV antibiotics completed. History of Present Illness Patient complains of: Expressive aphasia History of Present Illness: MAHSA CORREA is a 70 year old male, with history of hypertension, type II diabetes mellitus, hyperlipidemia, prior strokes, cerebral aneurysm status post craniotomy and clipping brought to the emergency room because of inability to talk. Patient apparently was doing well until about early this morning upon waking up between 5-6 the patient is unable to talk. Patient thought it would get better. Patient had some drooling of saliva, but no choking sensation, no headache, double vision nor swallowing difficulty report. Symptom persisted, his brother called him and noticed that he is unable to talk and express himself. He was brought to the emergency room for evaluation. Patient denies any new focal weakness on the left or on the right. 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 There is no syncopal episode, dizziness. Patient is able to understand but unable to speak what he thinks. In the emergency room head CT shows chronic encephalomalacia on the right frontal lobe doubt any acute abnormality, with aneurysmal clips and craniotomy scar. Patient reports multiple stents and will not be able to have MRI. Patient was then referred for admission. Hospital Course Hospital Course: The patient was admitted to [facility]. The patient was begun on antiplatelet therapy with aspirin. Patient was continued on cholesterol medication. Speech therapy evaluated the patient as well as physical therapy and occupational therapy. Speech therapy reported apraxia as well, needs to have outpatient rehabilitation with speech. Occupational therapy did not recommend any outpatient or further therapy on their side. Carotid doppler showed no significant stenosis. 2D echo did not reveal any thrombus nor significant valvular defect. MRI unable to be done due to multiple surgeries and metal plates on patient. Follow up Head CT did not reveal any acute stroke. Pt remained aphasic w/ slight imrovement, likely cause is another stroke or progressing encephalomalacia from prior vascular insults. his BP started to increase and home BP medications were resumed. Metoprolol was increased for BP control. His course was complicated by UTI where culture showed ESBL. Interventional radiology was consulted for PICC line placement. D/C town planner consulted for home IV antibiotic infusion. Patient began on Invanz. The rest of the hospital stay is unremarkable. Physical Exam Vital Signs: Temp Pulse Resp BP Pulse Ox 97.6 F 57 L 20 140/61 H 99 07/17/16 07:26 07/17/16 07:26 07/17/16 07:26 07/17/16 07:26 07/17/16 07:26 Intake & Output 07/16/16 07/17/16 07/18/16 06:59 06:59 06:59 Intake Total 850 1120 Output Total 350 Balance 850 770 Weight 96.9 kg 96.7 kg General appearance: PRESENT: no acute distress, cooperative Head exam: PRESENT: normocephalic Eye exam: PRESENT: EOMI Mouth exam: PRESENT: moist, neck supple Neck exam: ABSENT: JVD Respiratory exam: PRESENT: clear to auscultation manan. ABSENT: rhonchi, wheezes Cardiovascular exam: PRESENT: RRR. ABSENT: gallop GI/Abdominal exam: PRESENT: normal bowel sounds, soft. ABSENT: distended, tenderness Extremities exam: PRESENT: other - BKA on the right. ABSENT: pedal edema Neurological exam: PRESENT: alert, awake Skin exam: PRESENT: dry, warm. ABSENT: cyanosis Results Laboratory Results: 07/14/16 06:42 07/13/16 18:10 Clean Catch Midstream Urine Culture - Final Escherichia Coli Esbl Impressions: Carotid Doppler Study 07/12/16 00:00 IMPRESSION: NO HEMODYNAMICALLY SIGNIFICANT STENOSIS. Head CT 07/13/16 06:00 IMPRESSION: Postsurgical and chronic ischemic changes. No acute findings. Qualifiers PATEINT BEING DISCHARGED WITH ANY OF THE FOLLOWING DIAGNOSIS?: Stroke Stroke Pt being discharged on Anti-thrombolytic therapy?: No Reason(s) for not prescribing Anti-thrombolytic therapy:: Not indicated Stroke Pt being discharged on Anti-coagulation therapy?: Yes Stroke Pt being discharged on Statins?: Yes Plan Discharge Plan: Follow-up with primary care physician in 1 week. Time Spent: Less than 30 Minutes
--- NOTE | 2016-07-17 12:50 | RADIOLOGY REPORT (SQ) ---
EXAM DESCRIPTION: PICC INSERTION; FLUORO/CV PLACEMENT; U/S GUIDE FOR VASCULAR ACCESS COMPLETED DATE/TIME: 07/17/2016 11:13 am; 07/17/2016 11:14 am REASON FOR STUDY: Prolong IV antibx for resistant UTI; IV ABX COMPARISON: None. FLUOROSCOPY TIME: 2 minutes 8 seconds. 1 images saved to PACS. TECHNIQUE: Fluoroscopic and ultrasound guided PICC placement. LIMITATIONS: None. PROCEDURE: After written consent and assessment were obtained, the patient was brought into the fluo roscopy room and place supine on the table. Ultrasound was used on the patient's right arm for PICC access. The right arm was prepped and draped in a sterile fashion along with the ultrasound probe. Th e entry site was anesthetized with 1% lidocaine. A 21 gauge 7 cm needle was advanced through the skin and into the basilic vein under live ultrasound guidance. An ultrasound image was saved to PACS con firming access site. A .018 guide wire was then inserted through the needle and into the venous syst em. The needle was the removed and an 11 blade scalpel was used to make a 1cm skin incision. A 5 fr peel-away sheath was advanced over the wire and into the venous system. A measurement was then made u sing the existing wire and live fluoroscopic guidance. The wire was then removed and the trimmed. The PICC was advanced through the peel-away sheath and into the venous system. The peel-away sheath was removed and the catheter was adhered to the patients arm with a stat lock. The catheter was then aspi rated and flushed and a sterile bandage was placed over the access site. A fluoroscopic spot image w as saved to PACS confirming the catheter tip within the superior vena cava. IMPRESSION: SUCCESSFUL PLACEMENT OF A 5 FR DUAL LUMEN 38 CM PICC IN THE RIGHT BASILIC VEIN. COMMENT: Patient medication list reviewed: Yes- Quality ID# 130:Eligible professional attests to doc umenting in the medical record they obtained, updated, or reviewed the patient's current medications. . Quality ID 145: Final reports for procedures using fluoroscopy that document radiation exposure jony alexia, or exposure time and number of fluorographic images (if radiation exposure indices are not avail able) Quality ID #76: The patient was prepped and draped using maximum sterile barrier technique including cap, mask, sterile gown, sterile gloves, a large sterile sheet, hand hygiene, and 2% Chlorhexidine fo r cutaneous antisepsis. When ultrasound is used, sterile ultrasound techniques are followed requiring sterile gel and sterile probes. TECHNICAL DOCUMENTATION: JOB ID: [id number] [employer]- All Rights Reserved
[2016-07-17 16:52] VITALS: BP 161/59
[2016-07-17] MEDS ORDERED: NORMAL SALINE 10 ML SDV (SCHEDULED) IV SCH (22:00)
== END 2016-07-17 17:34 | disposition home or self-care (01) | DRG 65 ==
LOC: ER 12:29 → UNDOADMIN 15:19 → EH 15:19 → 3W 07-12 14:00
PROVIDERS: ADMIT Family Medicine; ATTEND Family Medicine
PROC: 02HV33Z Insertion of Infusion Device into Superior Vena Cava, Percutaneous Approach (ICD-10-PCS; principal; 2016-07-17)
PROC: B548ZZA Ultrasonography of Superior Vena Cava, Guidance (ICD-10-PCS; 2016-07-17)
PROC: B5181ZA Fluoroscopy of Superior Vena Cava using Low Osmolar Contrast, Guidance (ICD-10-PCS; 2016-07-17)
DX: I63.8 Other cerebral infarction (principal); N39.0 Urinary tract infection, site not specified; I69.359 Hemiplegia and hemiparesis following cerebral infarction affecting unspecified side; Z16.12 Extended spectrum beta lactamase (ESBL) resistance; R47.01 Aphasia; E87.5 Hyperkalemia; I12.9 Hypertensive chronic kidney disease with stage 1 through stage 4 chronic kidney disease, or unspecified chronic kidney disease; E11.22 Type 2 diabetes mellitus with diabetic chronic kidney disease; N18.9 Chronic kidney disease, unspecified; J44.9 Chronic obstructive pulmonary disease, unspecified; E78.5 Hyperlipidemia, unspecified; G47.33 Obstructive sleep apnea (adult) (pediatric); N40.0 Benign prostatic hyperplasia without lower urinary tract symptoms; F03.90 Unspecified dementia, unspecified severity, without behavioral disturbance, psychotic disturbance, mood disturbance, and anxiety; I25.10 Atherosclerotic heart disease of native coronary artery without angina pectoris; F32.9 Major depressive disorder, single episode, unspecified; Z79.899 Other long term (current) drug therapy; Z79.4 Long term (current) use of insulin; Z79.84 Long term (current) use of oral hypoglycemic drugs; I25.2 Old myocardial infarction; Z95.5 Presence of coronary angioplasty implant and graft; Z89.511 Acquired absence of right leg below knee; F17.200 Nicotine dependence, unspecified, uncomplicated
CPT/HCPCS: 36415; 36569; 70450; 70470; 76937; 77001; 80048; 80061; 81001; 82962; 83036; 84132; 84484; 85025; 85610; 85730; 87086; 87088; 87186; 93005; 93010; 93306; 93880; 99285; C1769; G8978-GP; G8979-GP; G8980-GP; G8999-GN; G9186-GN; J1335; J1642; J1650; J1815; J3490; S0028

== ENCOUNTER 2017-04-19 19:24 | Emergency (ER) | payer MEDICARE, BC ==
--- NOTE | 2017-04-19 20:14 | ER Document Report ---
ED General - General Chief Complaint: Wound Infection Stated Complaint: LEG PAIN Time Seen by Provider: 04/19/17 20:05 Notes: Patient is a 71-year-old male comes emergency department for chief complaint of right BKA wound infection at the tip of the stump. He states that he has an abrasion over the area, states that over the past week it has become painful to take steps with his prosthetic and he has developed a foul smell. He was seen by primary care, given a "salve ointment", states it is not significantly helped. He denies discolored drainage, fever or chills. He does have type 2 diabetes, insulin-dependent, he states his blood sugars have been ranging in the 200s and occasionally 400s. He denies any other complaints. TRAVEL OUTSIDE OF THE [place] IN LAST 30 DAYS: No - Related Data Allergies/Adverse Reactions: No Known Allergies Allergy (Verified 07/11/16 12:35) Past Medical History - General Information source: Patient - Social History Smoking Status: Never Smoker Frequency of alcohol use: None Drug Abuse: None Lives with: Family Family History: DM - Past Medical History Cardiac Medical History: Reports: Hx Coronary Artery Disease, Hx Heart Attack, Hx Hypercholesterolemia, Hx Hypertension Pulmonary Medical History: Reports: Hx COPD, Hx Sleep Apnea Denies: Hx Asthma, Hx Bronchitis, Hx Pneumonia Neurological Medical History: Reports: Hx Cerebrovascular Accident - X3; BRAIN ANUERYSM, STENTS PLACED. Denies: Hx Seizures Endocrine Medical History: Reports: Hx Diabetes Mellitus Type 2 Renal/ Medical History: Denies: Hx Peritoneal Dialysis Musculoskeltal Medical History: Reports Hx Arthritis Psychiatric Medical History: Reports: Hx Dementia, Hx Depression Past Surgical History: Reports: Hx Abdominal Surgery - hernia, Hx Cardiac Catheterization - w/stents, Hx Coronary Stent, Hx Herniorrhaphy, Hx Orthopedic Surgery - RIGHT FOOT LISFRANC'S ORIF, Hx Tonsillectomy - and adnoids - Immunizations Hx Diphtheria, Pertussis, Tetanus Vaccination: Yes Hx Pneumococcal Vaccination: 11/27/11 Physical Exam - Vital signs Vitals: Temp Pulse Resp BP Pulse Ox 97.6 F 53 L 20 113/50 L 97 04/19/17 20:00 04/19/17 20:00 04/19/17 20:00 04/19/17 20:00 04/19/17 20:00 Interpretation: Normal - General General appearance: Appears well In distress: None - HEENT Head: Normocephalic, Atraumatic Eyes: Normal Conjunctiva: Normal Extraocular movements intact: Yes Eyelashes: Normal Pupils: PERRL Nasal: Normal Mouth/Lips: Normal Mucous membranes: Normal Pharynx: Normal Neck: Normal - Respiratory Respiratory status: No respiratory distress Chest status: Nontender Breath sounds: Normal. No: Decreased air movement, Wheezing Chest palpation: Normal - Cardiovascular Rhythm: Regular. No: Tachycardia Heart sounds: Normal auscultation, S1 appreciated, S2 appreciated Murmur: No - Abdominal Inspection: Normal Distension: No distension Bowel sounds: Normal Tenderness: Nontender. No: Tender Organomegaly: No organomegaly - Back Back: Normal. No: Tender - Extremities General upper extremity: Normal inspection, Nontender, Normal strength, Normal temperature General lower extremity: Other - Right BKA. Stump has a small abrasion of the area with mild surrounding erythema and unpleasant odor, however there is no purulent discharge, no induration, no significant spread of erythema, no other abnormality. - Neurological Neuro grossly intact: Yes Cognition: Normal Orientation: AAOx4 Darren Coma Scale Eye Opening: Spontaneous Darren Coma Scale Verbal: Oriented [place] Coma Scale Motor: Obeys Commands Darren Coma Scale Total: 15 Speech: Normal Motor strength normal: LUE, RUE, LLE, RLE Sensory: Normal - Psychological Associated symptoms: Normal affect, Normal mood - Skin Skin Temperature: Warm Skin Moisture: Dry Skin Color: Normal Course - Re-evaluation Re-evalutation: Physical examination shows skin abrasion with mild surrounding erythema with no noted tenderness, no induration, no purulent discharge, however there is a foul smell. Consistent with developing early infection. No fever, no leukocytosis, patient denies any pain to the area unless he uses the prosthetic to walk. Patient has hypoglycemia, he was given dextrose, then he was given protein. Blood glucose return to normal, remain normal. Patient is asking to leave and go eat with his sister who is at bedside. Patient also is asking for crutches that he can use to keep weight off of the wound to allow it to heal. I advised against this initially, stated the patient is 71 and there is a fall risk with crutches, however patient states that he has used crutches within the past year and is good with them. Patient demonstrated capability of using them here before discharge. Placed on antibiotics, referred to wound clinic, discussed follow-up and return precautions. Patient and sister state understanding and agreement. - Vital Signs Vital signs: Temp Pulse Resp BP Pulse Ox 97.6 F 53 L 14 129/51 H 98 04/19/17 23:09 04/19/17 23:09 04/19/17 23:09 04/19/17 23:09 04/19/17 23:09 - Laboratory Result Diagrams: 04/19/17 20:47 04/19/17 20:47 Laboratory results interpreted by me: 04/19/17 04/19/17 20:47 20:47 RBC 4.22 L Hgb 13.4 L BUN 30 H Glucose 39 L* Discharge - Discharge Clinical Impression: Wound infection Condition: Stable Disposition: HOME, SELF-CARE Additional Instructions: The abrasion has early cellulitis. Take the Bactrim and Keflex antibiotics as prescribed, please call and follow-up with the wound clinic for additional management of this. Keep wound cleaned and a clean dressing over the area. Avoid walking on the leg and elevate whenever possible. See your primary care within the next week to have your blood chemistry checked because of the antibiotics and the medications you are on. Return immediately if you worsen including spreading redness, pain to the area, temperature of 100.4 or greater, discolored discharge, or any other concerning symptoms. Prescriptions: Cephalexin Monohydrate [Keflex 500 mg Capsule] 500 mg PO QID #28 capsule Sulfamethoxazole/Trimethoprim [Bactrim Ds Tablet] 1 each PO BID #14 tablet Referrals: ADRIANA SHAERER MD [Primary Care Provider] - Follow up as needed
[2017-04-19 21:00] LABS: ABSOLUTE EOSINOPHILS # (AUTO) 0.1 10^3/uL (0.0-0.6); ABSOLUTE LYMPHOCYTES (AUTO) 2.5 10^3/uL (0.5-4.7); ABSOLUTE MONOCYTES (AUTO) 0.9 10^3/uL (0.1-1.4); ABSOLUTE NEUT (AUTO) 5.8 10^3/uL (1.7-8.2); BASOPHILS % (AUTO) 0.5 % (0-2); EOSINOPHILS % (AUTO) 1.5 % (0-6); HEMATOCRIT 38.6 % (37.9-51.0); HEMOGLOBIN 13.4 g/dL (13.5-17.0); LYMPHOCYTES % (AUTO) 26.6 % (13-45); MEAN CORPUSCULAR HEMOGLOBIN 31.7 pg (27.0-33.4); MEAN CORPUSCULAR HGB CONC 34.6 g/dL (32.0-36.0); MEAN CORPUSCULAR VOLUME 91 fl (80-97); MONOCYTES % (AUTO) 9.6 % (3-13); PLATELET COUNT 257 10^3/uL (150-450); RED BLOOD COUNT 4.22 10^6/uL (4.35-5.55); RED CELL DISTRIBUTION WIDTH 13.3 % (11.5-14.0); SEGMENTED NEUTROPHILS % (AUTO) 61.8 % (42-78); TOTAL CELLS COUNTED % (AUTO) 100 %; WHITE BLOOD COUNT 9.4 10^3/uL (4.0-10.5)
[2017-04-19 21:21] LABS: ANION GAP 9 (5-19); BLOOD UREA NITROGEN 30 mg/dL (7-20); CALCIUM 9.3 mg/dL (8.4-10.2); CARBON DIOXIDE 27 mmol/L (22-30); CHLORIDE 105 mmol/L (98-107); POTASSIUM 4.6 mmol/L (3.6-5.0); SODIUM 141.2 mmol/L (137-145)
[2017-04-19 21:31] LABS: GLUCOSE 39 mg/dL (75-110)
[2017-04-19] MEDS ORDERED: DEXTROSE 50%-WATER 25 GM/50 ML DISP.SYRIN IV ONE ×2 (21:31→21:42)
[2017-04-19] MEDS ORDERED: CEPHALEXIN 500 MG CAPSULE PO ONE (22:07)
[2017-04-19] MEDS ORDERED: SULFAMETHOXAZOLE/TRIMETHOPRIM 800-160 MG TABLET PO ONE (22:07)
[2017-04-19 23:10] VITALS: BP 129/51
== END 2017-04-19 23:10 | disposition home or self-care (01) ==
LOC: ER 19:24
DX: T81.4XXA Infection following a procedure, initial encounter (principal); E11.649 Type 2 diabetes mellitus with hypoglycemia without coma; M79.604 Pain in right leg; J44.9 Chronic obstructive pulmonary disease, unspecified; Z89.511 Acquired absence of right leg below knee; Z79.4 Long term (current) use of insulin; Z86.73 Personal history of transient ischemic attack (TIA), and cerebral infarction without residual deficits
CPT/HCPCS: 99283; 96374; 36415; 82962; 85025; 80048; A9270 ×2; J3490

== ENCOUNTER 2017-04-20 01:59 | Emergency (ER) | payer MEDICARE, BC ==
[2017-04-20] MEDS ORDERED: MORPHINE SULFATE IR 15 MG TABLET PO ONE ×2 (02:14→05:52)
--- NOTE | 2017-04-20 02:45 | RADIOLOGY REPORT (SQ) ---
EXAM DESCRIPTION: CT HEAD WITHOUT CLINICAL HISTORY: fall, head injury COMPARISON: 07/13/2016 TECHNIQUE: Axial CT of the head obtained from the skull apex to the skull base without contrast. FINDINGS: No acute intracranial hemorrhage identified. No mass, mass effect, shift of the midline, abnormal extra-axial fluid collection or CT evidence of acute ischemic change identified. The ventricular system and sulcal spaces are mildly enlarged compatible with mild cerebral atrophy. Scattered areas of hypodensity throughout the supratentorial white matter are nonspecific and may be related to chronic small vessel ischemic change. Encephalomalacia involving the right frontal lobe may be related to prior traumatic or ischemic insult. Postoperative change in the suprasellar region. The visualized paranasal sinuses and the mastoids are clear. Postoperative change of the right calvarium. Visualized orbits and globes are unremarkable. Atherosclerotic calcification of the intracranial internal carotid arteries. DLP: 1162.97 mGy-cm IMPRESSION: 1. No acute intracranial abnormality by CT criteria. This exam was performed according to our departmental dose-optimization program, which includes automated exposure control, adjustment of the mA and/or kV according to patient size and/or use of iterative reconstruction technique.
--- NOTE | 2017-04-20 04:44 | RADIOLOGY REPORT (SQ) ---
EXAM DESCRIPTION: SHOULDER RIGHT 2 OR MORE VIEWS CLINICAL HISTORY: fall, pain COMPARISON: None. FINDINGS: 2 views of the right shoulder. Acute minimally displaced fracture involving the surgical neck of the humerus. Osteopenia. No other fractures identified. No right-sided pneumothorax. IMPRESSION: 1. Acute minimally displaced fracture involving the surgical neck of the humerus.
--- NOTE | 2017-04-20 04:46 | RADIOLOGY REPORT (SQ) ---
EXAM DESCRIPTION: RIBS RIGHT W/PA CHEST CLINICAL HISTORY: fall, pain COMPARISON: None. FINDINGS: Single frontal view of the chest. At the scar calcification tortuosity of thoracic aorta. Prior median sternotomy. Heart is not enlarged. No consolidation, pneumothorax, or pleural effusion. No right-sided rib fracture definitely identified. Redemonstrated minimally displaced surgical neck fracture of the right humerus. IMPRESSION: 1. No right-sided rib fracture identified.
--- NOTE | 2017-04-20 04:50 | RADIOLOGY REPORT (SQ) ---
EXAM DESCRIPTION: HIP RIGHT AP/LATERAL CLINICAL HISTORY: fall, pain COMPARISON: None. FINDINGS: Single view of the pelvis and lateral view of the right hip. No acute fracture or dislocation. Osteopenia. Mild bilateral hip joint space narrowing. Postoperative change in the pelvis. IMPRESSION: 1. No acute fracture or dislocation.
--- NOTE | 2017-04-20 05:00 | ER Document Report ---
ED Fall - General Chief Complaint: Fall Stated Complaint: RIGHT SHOULDER/RIB PAIN Time Seen by Provider: 04/20/17 02:07 Notes: Patient is a 71 year old male that comes to the ED for chief complaint for chief complaint of fall. He states he was using crutches to stay off his tender right BKA, states that he actually caught the crutch on the corner of the couch which made him lose his balance and fell forward, he states he fell onto his right side, he did hit his head up against the desk while falling. He has pain on his right side, worse in his shoulder and rib areas. He is not on a blood thinner. He denies getting knocked out, vomiting, or even significant headache at this time. TRAVEL OUTSIDE OF THE [place] IN LAST 30 DAYS: No - Related data Allergies/Adverse Reactions: No Known Allergies Allergy (Verified 07/11/16 12:35) Past Medical History - General Information source: Patient - Social History Smoking Status: Former Smoker Chew tobacco use (# tins/day): No Frequency of alcohol use: None Drug Abuse: None Lives with: Family Family History: DM Patient has suicidal ideation: No Patient has homicidal ideation: No - Past Medical History Cardiac Medical History: Reports: Hx Coronary Artery Disease, Hx Heart Attack, Hx Hypercholesterolemia, Hx Hypertension Pulmonary Medical History: Reports: Hx COPD, Hx Sleep Apnea Denies: Hx Asthma, Hx Bronchitis, Hx Pneumonia Neurological Medical History: Reports: Hx Cerebrovascular Accident - X3; BRAIN ANUERYSM, STENTS PLACED. Denies: Hx Seizures Endocrine Medical History: Reports: Hx Diabetes Mellitus Type 2 Renal/ Medical History: Denies: Hx Peritoneal Dialysis Musculoskeltal Medical History: Reports Hx Arthritis Psychiatric Medical History: Reports: Hx Dementia, Hx Depression Past Surgical History: Reports: Hx Abdominal Surgery - hernia, Hx Cardiac Catheterization - w/stents, Hx Coronary Stent, Hx Herniorrhaphy, Hx Orthopedic Surgery - RIGHT FOOT LISFRANC'S ORIF, Hx Tonsillectomy - and adnoids - Immunizations Hx Diphtheria, Pertussis, Tetanus Vaccination: Yes Hx Pneumococcal Vaccination: 11/27/11 Review of Systems - Review of Systems Constitutional: No symptoms reported EENT: No symptoms reported Cardiovascular: No symptoms reported Respiratory: No symptoms reported Gastrointestinal: No symptoms reported Genitourinary: No symptoms reported Male Genitourinary: No symptoms reported Musculoskeletal: See HPI Skin: No symptoms reported Hematologic/Lymphatic: No symptoms reported Neurological/Psychological: See HPI Physical Exam - Vital signs Vitals: Temp Pulse Resp BP Pulse Ox 98.5 F 62 16 132/88 H 97 04/20/17 06:12 04/20/17 06:12 04/20/17 06:12 04/20/17 06:12 04/20/17 06:12 - General General appearance: Appears well, Alert In distress: None - HEENT Head: Normocephalic, Atraumatic Eyes: Normal Conjunctiva: Normal Cornea: Normal Eyelashes: Normal Pupils: PERRL Nasal: Normal Mouth/Lips: Normal Mucous membranes: Normal Pharynx: Normal Neck: Normal - Respiratory Respiratory status: No respiratory distress. No: Respiratory distress, Labored , Tachypnea Chest status: Tender - There is reproducible tenderness over the right mid ribs near the midaxillary line, no ecchymosis, no severe pain, no crepitus Breath sounds: Normal. No: Decreased air movement, Rales, Rhonchi, Wheezing - Cardiovascular Rhythm: Regular. No: Tachycardia Heart sounds: Normal auscultation, S1 appreciated, S2 appreciated - Abdominal Inspection: Normal Tenderness: Nontender. No: Tender, Guarding - Back Back: Normal, Nontender. No: Tender, Vertebra tenderness - Extremities General upper extremity: Other - Tender over the right proximal shoulder area, pain with range of motion although range of motion is intact. 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 General lower extremity: Other - Mild tenderness over the right proximal femoral area laterally, range of motion of the hip intact, right BKA present. Unremarkable lower extremity exam otherwise. 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 He states he hit his head although there is no obvious sign of injury on his head. No wounds that need closure or cleaning. Patient alert and oriented, able to describe events, no neurological deficits noted. CAT scan of head is unremarkable, x-ray imaging shows fracture with minimal displacement of the proximal humerus. Normal distal neurovascular exam. Normal exam otherwise. Provided with sling, pain medication, stool softener, orthopedics referral. I discussed this with patient. I called and spoke with his sister who he stays with, discussed unfortunate events, recommendations. She states that he was actually walking very well on the crutches and had an unfortunate accident where he hit the couch and tripped. She states understanding and agreement with plan. - Vital Signs Vital signs: Temp Pulse Resp BP Pulse Ox 98.5 F 62 16 132/88 H 97 04/20/17 06:12 04/20/17 06:12 04/20/17 06:12 04/20/17 06:12 04/20/17 06:12 Procedures - Immobilization Right arm Pre-Proc Neuro Vasc Exam: Normal Immobilizer type: Sling Performed by: RN, PCT Post-Proc Neuro Vasc Exam: Normal Alignment checked and good: Yes Discharge - Discharge Clinical Impression: Fall Qualifiers: Encounter type: initial encounter Qualified Code(s): W19.XXXA - Unspecified fall, initial encounter Closed fracture of right proximal humerus Qualifiers: Encounter type: initial encounter Fracture morphology: unspecified fracture morphology Qualified Code(s): S42.201A - Unspecified fracture of upper end of right humerus, initial encounter for closed fracture Disposition: HOME, SELF-CARE Additional Instructions: Your x-ray shows a minimally displaced fracture of the humerus near the shoulder (arm bone connecting your shoulder to your elbow). Wear the sling, take the pain medication if needed, if you do take the pain medication also take the Colace stool softener to avoid constipation. Please call and follow-up closely with orthopedics for additional evaluation and management. Return for any concerning symptoms including severe swelling or pain. Prescriptions: Morphine Sulfate [Morphine Ir 15 Mg Tablet] 15 mg PO Q4HP PRN #12 tablet PRN Reason: Docusate Sodium [Colace 100 mg Capsule] 100 mg PO ASDIR PRN #30 capsule PRN Reason: Referrals: VJ SHOEMAKER MD [ACTIVE STAFF] - Follow up in 3-5 days
[2017-04-20 06:13] VITALS: BP 132/88
== END 2017-04-20 06:14 | disposition home or self-care (01) ==
LOC: ER 01:59
DX: S42.201A Unspecified fracture of upper end of right humerus, initial encounter for closed fracture (principal); M25.511 Pain in right shoulder; R07.81 Pleurodynia; Z89.511 Acquired absence of right leg below knee; W19.XXXA Unspecified fall, initial encounter; Z87.891 Personal history of nicotine dependence
CPT/HCPCS: 99284; 73502; 71101; 73030; 70450; A9270

== ENCOUNTER 2017-04-20 14:55 | Inpatient (IN) | payer OTHER, MEDICARE, BC ==
[2017-04-20 15:48] LABS: ABSOLUTE LYMPHOCYTES (AUTO) 0.9 10^3/uL (0.5-4.7); ABSOLUTE MONOCYTES (AUTO) 1.1 10^3/uL (0.1-1.4); ABSOLUTE NEUT (AUTO) 8.2 10^3/uL (1.7-8.2); BASOPHILS % (AUTO) 0.2 % (0-2); EOSINOPHILS % (AUTO) 0.3 % (0-6); HEMATOCRIT 37.2 % (37.9-51.0); HEMOGLOBIN 12.7 g/dL (13.5-17.0); LYMPHOCYTES % (AUTO) 8.4 % (13-45); MEAN CORPUSCULAR HEMOGLOBIN 31.3 pg (27.0-33.4); MEAN CORPUSCULAR HGB CONC 34.2 g/dL (32.0-36.0); MEAN CORPUSCULAR VOLUME 92 fl (80-97); MONOCYTES % (AUTO) 10.9 % (3-13); PLATELET COUNT 236 10^3/uL (150-450); RED BLOOD COUNT 4.06 10^6/uL (4.35-5.55); RED CELL DISTRIBUTION WIDTH 13.5 % (11.5-14.0); SEGMENTED NEUTROPHILS % (AUTO) 80.2 % (42-78); TOTAL CELLS COUNTED % (AUTO) 100 %; WHITE BLOOD COUNT 10.3 10^3/uL (4.0-10.5)
[2017-04-20 16:11] LABS: ALANINE AMINOTRANSFERASE 36 U/L (21-72); ALBUMIN 3.8 g/dL (3.5-5.0); ALKALINE PHOSPHATASE 63 U/L (38-126); ANION GAP 10 (5-19); ASPARTATE AMINO TRANSFERASE 18 U/L (17-59); BILIRUBIN,DIRECT 0.4 mg/dL (0.0-0.4); BILIRUBIN,TOTAL 0.4 mg/dL (0.2-1.3); BLOOD UREA NITROGEN 27 mg/dL (7-20); CALCIUM 8.9 mg/dL (8.4-10.2); CARBON DIOXIDE 25 mmol/L (22-30); CHLORIDE 103 mmol/L (98-107); GLUCOSE 211 mg/dL (75-110); POTASSIUM 4.6 mmol/L (3.6-5.0); SODIUM 138.1 mmol/L (137-145); TOTAL PROTEIN 6.1 g/dL (6.3-8.2)
[2017-04-20] MEDS: HYDROMORPHONE HCL INJ/PF 2 MG/ML AMPULE IV PRN (16:50)
[2017-04-20] MEDS ORDERED: DEXTROSE 40% GEL 15 GM TUBE X 2 PO PRN (17:23)
[2017-04-20] MEDS ORDERED: GLUCAGON,HUMAN RECOMB 1 MG INJ IM PRN (17:23)
[2017-04-20] MEDS ORDERED: DEXTROSE 50%-WATER SYRINGE 25 GM/50 ML DOSE IV PRN (17:23)
[2017-04-20] MEDS ORDERED: DEXTROSE 50%-WATER SYRINGE 12.5 GM/25 ML DOSE IV PRN (17:23)
[2017-04-20] MEDS ORDERED: DEXTROSE 40% GEL 15 GM TUBE PO PRN (17:23)
[2017-04-20] MEDS: CLINDAMYCIN 300 MG/D5W RTU 300 MG/50 ML RTUPB IV SCH (17:39)
[2017-04-20] MEDS: INSULIN LISPRO 100 UNIT/ML 3 ML VIAL SUBCUT PRN ×2 (18:24→22:31)
[2017-04-20] MEDS ORDERED: DOCUSATE SODIUM 100 MG CAPSULE PO PRN (19:17)
[2017-04-20] MEDS: BUPROPION HCL 75 MG TABLET PO SCH (22:32)
[2017-04-20] MEDS: MEMANTINE HCL 10 MG TABLET PO SCH (22:32)
[2017-04-20] MEDS: METOPROLOL TARTRATE 25 MG TABLET PO SCH (22:32)
[2017-04-21] MEDS: CLINDAMYCIN 300 MG/D5W RTU 300 MG/50 ML RTUPB IV SCH ×3 (02:22→17:14)
[2017-04-21] MEDS: AMLODIPINE BESYLATE 10 MG TABLET PO SCH (09:25)
[2017-04-21] MEDS: ASPIRIN/DIPYRIDAMOLE 25-200 MG 1 CAP.SR CPMP.12HR PO SCH ×2 (09:26→17:13)
[2017-04-21] MEDS: LISINOPRIL 10 MG TABLET PO SCH (09:26)
[2017-04-21] MEDS: BUPROPION HCL 75 MG TABLET PO SCH ×2 (09:27→21:38)
[2017-04-21] MEDS: FUROSEMIDE 40 MG TABLET PO SCH (09:27)
[2017-04-21] MEDS: DONEPEZIL HCL 5 MG TABLET PO SCH (09:28)
[2017-04-21] MEDS: METOPROLOL TARTRATE 25 MG TABLET PO SCH ×2 (09:28→21:39)
[2017-04-21] MEDS: MEMANTINE HCL 10 MG TABLET PO SCH ×2 (09:28→21:38)
[2017-04-21] MEDS ORDERED: (PENDING PHARMACY ID) (Lisinopril [Zestril] 40 MG) PO SCH (10:00)
[2017-04-21] MEDS ORDERED: DONEPEZIL HCL PO SCH (10:00)
[2017-04-21] MEDS: INSULIN LISPRO 100 UNIT/ML 3 ML VIAL SUBCUT PRN ×4 (10:02→21:46)
--- NOTE | 2017-04-21 15:18 | PDOC H&P ---
History of Present Illness Admission Date/PCP: 04/20/17 14:55 History of Present Illness: MAHSA CORREA is a 71 year old male, he fell yesterday at home when he attempted to stay off is right BKA using his crutches but the crutches got caught up in the corner of his couch, he lost his balance fell forward and sustained fracture of the right humerus. He was seen in the emergency room for evaluation of the fall, x-ray was done, it showed displaced fracture involving the surgical neck of the humerus, there is osteopenia. He came to the office today for evaluation of redness and pain of the stump suggesting cellulitis it is warm to touch. He has multiple comorbid conditions including intracranial hemorrhage, multiple CVA, coronary artery disease status post CABG, dysphagia, right BKA, type 2 diabetes mellitus. Because of the cellulitis and multiple comorbid conditions and the risk of progression of cellulitis to trey sepsis due to his multiple comorbid conditions and the fact that he lives by himself he was directly admitted from the office to the hospital for management of the cellulitis. Past Medical History Cardiac Medical History: Reports: Coronary Artery Disease, Myocardial Infarction , Hyperlipidema, Hypertension Pulmonary Medical History: Reports: Chronic Obstructive Pulmonary Disease (COPD) , Sleep Apnea Renal/ Medical History: Reports: Chronic Kidney Disease, Other - Chronic kidney disease stage III Musculoskeltal Medical History: Reports: Arthritis Psychiatric Medical History: Reports: Dementia, Depression Past Surgical History Past Surgical History: Reports: Cardiac Catheterization - w/stents, Coronary Stent, Herniorrhaphy, Orthopedic Surgery - RIGHT FOOT LISFRANC'S ORIF, Tonsillectomy - and adnoids Social History Smoking Status: Current Every Day Smoker Frequency of Alcohol Use: None Hx Recreational Drug Use: Yes Drugs: Marijuana Hx Prescription Drug Abuse: No Family History Family History: DM Parental Family History Reviewed: Yes Children Family History Reviewed: Yes Sibling(s) Family History Reviewed.: Yes Medication/Allergy Home Medications: Amlodipine Besylate [Norvasc 10 mg Tablet] 10 mg PO DAILY 04/20/17 Aspirin/Dipyridamole [Aggrenox 25 mg-200 mg Capsule] 1 cap PO BID 04/20/17 Bupropion HCl [Wellbutrin 75 mg Tablet] 75 mg PO Q12 04/20/17 Cephalexin Monohydrate [Keflex 500 mg Capsule] 500 mg PO QID 04/20/17 Divalproex Sodium [Depakote ER 500 mg Tab.sr] 500 mg PO QPM 04/20/17 Docusate Sodium [Colace 100 mg Capsule] 100 mg PO DAILYP PRN 04/20/17 Donepezil HCl [Aricept] 20 mg PO DAILY 04/20/17 Furosemide [Lasix 40 mg Tablet] 40 mg PO DAILY 04/20/17 Lisinopril [Zestril] 40 mg PO DAILY 04/20/17 Memantine HCl [Namenda 10 mg Tablet] 10 mg PO Q12 04/20/17 Metoprolol Tartrate [Lopressor 25 mg Tablet] 12.5 mg PO Q12 04/20/17 Morphine Sulfate [Morphine Ir 15 mg Tablet] 15 mg PO Q4HP PRN 04/20/17 Sulfamethoxazole/Trimethoprim [Bactrim Ds Tablet] 1 tab PO BID 04/20/17 Allergies/Adverse Reactions: No Known Allergies Allergy (Verified 07/11/16 12:35) Review of Systems Constitutional: ABSENT: chills, fever(s), headache(s), weight gain, weight loss Eyes: ABSENT: visual disturbances Ears: ABSENT: hearing changes Cardiovascular: ABSENT: chest pain, dyspnea on exertion, edema, orthropnea, palpitations Respiratory: ABSENT: cough, hemoptysis Gastrointestinal: ABSENT: abdominal pain, constipation, diarrhea, hematemesis, hematochezia, nausea, vomiting Genitourinary: ABSENT: dysuria, hematuria Musculoskeletal: PRESENT: back pain, joint swelling Integumentary: ABSENT: rash, wounds Neurological: ABSENT: abnormal gait, abnormal speech, confusion, dizziness, focal weakness, syncope Psychiatric: ABSENT: anxiety, depression, homidical ideation, suicidal ideation Endocrine: ABSENT: cold intolerance, heat intolerance, menstrual abnormalities, polydipsia, polyuria Hematologic/Lymphatic: ABSENT: easy bleeding, easy bruising, lymphadenopathy Physical Exam Vital Signs: Temp Pulse Resp BP Pulse Ox 98.1 F 65 19 125/60 97 04/21/17 11:25 04/21/17 11:25 04/21/17 11:25 04/21/17 11:25 04/21/17 11:25 Intake & Output 04/20/17 04/21/17 04/22/17 06:59 06:59 06:59 Intake Total 464 884 Output Total 525 950 Balance -61 -66 Weight 72 kg General appearance: PRESENT: no acute distress Head exam: PRESENT: atraumatic, normocephalic Eye exam: PRESENT: conjunctiva pink, EOMI, PERRLA Ear exam: PRESENT: normal external ear exam Mouth exam: PRESENT: moist, tongue midline Neck exam: PRESENT: full ROM Respiratory exam: PRESENT: clear to auscultation manan Cardiovascular exam: PRESENT: RRR, +S1, +S2 Pulses: PRESENT: normal dorsalis pedis pul, +2 pedal pulses bilateral Vascular exam: PRESENT: normal capillary refill GI/Abdominal exam: PRESENT: normal bowel sounds, soft Rectal exam: PRESENT: deferred Extremities exam: PRESENT: right BKA Neurological exam: PRESENT: alert, CN II-XII grossly intact Psychiatric exam: PRESENT: appropriate affect, normal mood Skin exam: PRESENT: dry, intact, warm. ABSENT: cyanosis, rash Results Laboratory Results: 04/20/17 15:35 04/20/17 15:35 04/20/17 04/20/17 15:35 15:35 WBC 10.3 RBC 4.06 L Hgb 12.7 L Hct 37.2 L MCV 92 MCH 31.3 MCHC 34.2 RDW 13.5 Plt Count 236 Seg Neutrophils % 80.2 H Lymphocytes % 8.4 L Monocytes % 10.9 Eosinophils % 0.3 Basophils % 0.2 Absolute Neutrophils 8.2 Absolute Lymphocytes 0.9 Absolute Monocytes 1.1 Absolute Eosinophils 0.0 Absolute Basophils 0.0 Sodium 138.1 Potassium 4.6 Chloride 103 Carbon Dioxide 25 Anion Gap 10 BUN 27 H Creatinine 1.18 Est GFR ( Amer) > 60 Est GFR (Non-Af Amer) > 60 Glucose 211 H Calcium 8.9 Total Bilirubin 0.4 AST 18 ALT 36 Alkaline Phosphatase 63 Total Protein 6.1 L Albumin 3.8 Assessment & Plan - Diagnosis (1) Amputation stump infection Is this a current diagnosis for this admission?: Yes Plan: Patient is admitted started on IV antibiotic (2) Cellulitis of right leg Is this a current diagnosis for this admission?: Yes (3) Fracture of humerus, right, closed Qualifiers: Encounter type: initial encounter Humerus Location: surgical neck Fracture morphology: unspecified fracture morphology Fracture alignment: displaced Qualified Code(s): S42.211A - Unspecified displaced fracture of surgical neck of right humerus, initial encounter for closed fracture Is this a current diagnosis for this admission?: Yes (4) COPD (chronic obstructive pulmonary disease) Qualifiers: COPD type: unspecified COPD Qualified Code(s): J44.9 - Chronic obstructive pulmonary disease, unspecified Is this a current diagnosis for this admission?: Yes (5) CVA (cerebral vascular accident) Qualifiers: CVA mechanism: unspecified Qualified Code(s): I63.9 - Cerebral infarction, unspecified Is this a current diagnosis for this admission?: Yes (6) Cardiomyopathy Qualifiers: Cardiomyopathy type: unspecified Qualified Code(s): I42.9 - Cardiomyopathy , unspecified Is this a current diagnosis for this admission?: Yes (7) Diabetes Qualifiers: Diabetes mellitus type: type 2 Diabetes mellitus complication status: with unspecified complications Diabetes mellitus care home insulin use: without care home use Qualified Code(s): E11.8 - Type 2 diabetes mellitus with unspecified complications Is this a current diagnosis for this admission?: Yes (8) Essential hypertension Is this a current diagnosis for this admission?: Yes (9) Hyperlipidemia Qualifiers: Hyperlipidemia type: unspecified Qualified Code(s): E78.5 - Hyperlipidemia , unspecified (10) Obesity Is this a current diagnosis for this admission?: Yes (12) Peripheral vascular disease Is this a current diagnosis for this admission?: Yes
[2017-04-21] MEDS: HYDROMORPHONE HCL INJ/PF 2 MG/ML AMPULE IV PRN ×2 (15:38→21:46)
[2017-04-21] MEDS: DIVALPROEX SODIUM 500 MG TAB.SR.24H PO SCH (17:12)
--- NOTE | 2017-04-21 21:26 | PDOC PROGRESS REPORT ---
Subjective Progress Note for:: 04/21/17 Subjective:: He was seen by the bedside responded very well to treatment Reason For Visit: CELLULITIS OF STUMP FALL MULTIPLE CO MORBID Physical Exam Vital Signs: Temp Pulse Resp BP Pulse Ox 98.6 F 68 18 126/51 H 98 04/21/17 19:31 04/21/17 19:31 04/21/17 19:31 04/21/17 19:31 04/21/17 19:31 Intake & Output 04/20/17 04/21/17 04/22/17 06:59 06:59 06:59 Intake Total 464 984 Output Total 525 950 Balance -61 34 Weight 72 kg Head exam: PRESENT: atraumatic, normocephalic Eye exam: PRESENT: conjunctiva pink, EOMI, PERRLA Ear exam: PRESENT: normal external ear exam Mouth exam: PRESENT: moist, tongue midline Neck exam: PRESENT: full ROM Respiratory exam: PRESENT: clear to auscultation manan Cardiovascular exam: PRESENT: RRR, +S1, +S2 Vascular exam: PRESENT: normal capillary refill GI/Abdominal exam: PRESENT: normal bowel sounds, soft Rectal exam: PRESENT: deferred Neurological exam: PRESENT: alert, awake, oriented to person, oriented to place , oriented to time, oriented to situation, CN II-XII grossly intact Psychiatric exam: PRESENT: appropriate affect, normal mood. ABSENT: homicidal ideation, suicidal ideation Skin exam: PRESENT: dry, intact, warm Results Laboratory Results: 04/20/17 15:35 04/20/17 15:35 Assessment & Plan - Diagnosis (1) Amputation stump infection Is this a current diagnosis for this admission?: Yes (2) Cellulitis of right leg Is this a current diagnosis for this admission?: Yes (3) Fracture of humerus, right, closed Qualifiers: Encounter type: initial encounter Humerus Location: surgical neck Fracture morphology: unspecified fracture morphology Fracture alignment: displaced Qualified Code(s): S42.211A - Unspecified displaced fracture of surgical neck of right humerus, initial encounter for closed fracture Is this a current diagnosis for this admission?: Yes (4) COPD (chronic obstructive pulmonary disease) Qualifiers: COPD type: unspecified COPD Qualified Code(s): J44.9 - Chronic obstructive pulmonary disease, unspecified Is this a current diagnosis for this admission?: Yes (5) CVA (cerebral vascular accident) Qualifiers: CVA mechanism: unspecified Qualified Code(s): I63.9 - Cerebral infarction, unspecified Is this a current diagnosis for this admission?: Yes (6) Cardiomyopathy Qualifiers: Cardiomyopathy type: unspecified Qualified Code(s): I42.9 - Cardiomyopathy , unspecified Is this a current diagnosis for this admission?: Yes (7) Diabetes Qualifiers: Diabetes mellitus type: type 2 Diabetes mellitus complication status: with unspecified complications Diabetes mellitus detention insulin use: without detention use Qualified Code(s): E11.8 - Type 2 diabetes mellitus with unspecified complications Is this a current diagnosis for this admission?: Yes (8) Essential hypertension Is this a current diagnosis for this admission?: Yes (9) Hyperlipidemia Qualifiers: Hyperlipidemia type: unspecified Qualified Code(s): E78.5 - Hyperlipidemia , unspecified (10) Obesity Is this a current diagnosis for this admission?: Yes (12) Peripheral vascular disease Is this a current diagnosis for this admission?: Yes - Plan Summary Plan Summary: Continue treatment
[2017-04-22] MEDS: CLINDAMYCIN 300 MG/D5W RTU 300 MG/50 ML RTUPB IV SCH ×3 (01:27→17:47)
[2017-04-22] MEDS: INSULIN LISPRO 100 UNIT/ML 3 ML VIAL SUBCUT PRN ×4 (08:13→21:23)
[2017-04-22] MEDS: HYDROMORPHONE HCL INJ/PF 2 MG/ML AMPULE IV PRN ×3 (08:21→22:45)
[2017-04-22] MEDS: LISINOPRIL 10 MG TABLET PO SCH (09:58)
[2017-04-22] MEDS: ASPIRIN/DIPYRIDAMOLE 25-200 MG 1 CAP.SR CPMP.12HR PO SCH ×2 (09:58→17:47)
[2017-04-22] MEDS: DONEPEZIL HCL 5 MG TABLET PO SCH (09:59)
[2017-04-22] MEDS: BUPROPION HCL 75 MG TABLET PO SCH ×2 (10:00→21:23)
[2017-04-22] MEDS: METOPROLOL TARTRATE 25 MG TABLET PO SCH ×2 (10:00→21:23)
[2017-04-22] MEDS: AMLODIPINE BESYLATE 10 MG TABLET PO SCH (10:00)
[2017-04-22] MEDS: MEMANTINE HCL 10 MG TABLET PO SCH ×2 (10:00→21:23)
[2017-04-22] MEDS: FUROSEMIDE 40 MG TABLET PO SCH (10:00)
--- NOTE | 2017-04-22 14:56 | PDOC PROGRESS REPORT ---
Subjective Progress Note for:: 04/22/17 Subjective:: Patient seen by the bedside the cellulitis is improving, he has multiple comorbid conditions Reason For Visit: CELLULITIS OF STUMP FALL MULTIPLE CO MORBID Physical Exam Vital Signs: Temp Pulse Resp BP Pulse Ox 98.1 F 56 L 16 135/51 H 97 04/22/17 11:38 04/22/17 11:38 04/22/17 11:38 04/22/17 11:38 04/22/17 11:38 Intake & Output 04/21/17 04/22/17 04/23/17 06:59 06:59 06:59 Intake Total 464 1507 Output Total 525 1850 Balance -61 -343 Weight 72 kg General appearance: PRESENT: no acute distress Eye exam: PRESENT: PERRLA Respiratory exam: PRESENT: clear to auscultation manan Cardiovascular exam: PRESENT: +S1, +S2 GI/Abdominal exam: PRESENT: soft Neurological exam: PRESENT: alert Results Laboratory Results: 04/20/17 15:35 04/20/17 15:35 Assessment & Plan - Diagnosis (1) Amputation stump infection Is this a current diagnosis for this admission?: Yes (2) Cellulitis of right leg Is this a current diagnosis for this admission?: Yes (3) Fracture of humerus, right, closed Qualifiers: Encounter type: initial encounter Humerus Location: surgical neck Fracture morphology: unspecified fracture morphology Fracture alignment: displaced Qualified Code(s): S42.211A - Unspecified displaced fracture of surgical neck of right humerus, initial encounter for closed fracture Is this a current diagnosis for this admission?: Yes (4) COPD (chronic obstructive pulmonary disease) Qualifiers: COPD type: unspecified COPD Qualified Code(s): J44.9 - Chronic obstructive pulmonary disease, unspecified Is this a current diagnosis for this admission?: Yes (5) CVA (cerebral vascular accident) Qualifiers: CVA mechanism: unspecified Qualified Code(s): I63.9 - Cerebral infarction, unspecified Is this a current diagnosis for this admission?: Yes (6) Cardiomyopathy Qualifiers: Cardiomyopathy type: unspecified Qualified Code(s): I42.9 - Cardiomyopathy , unspecified Is this a current diagnosis for this admission?: Yes (7) Diabetes Qualifiers: Diabetes mellitus type: type 2 Diabetes mellitus complication status: with unspecified complications Diabetes mellitus intermediate accountant insulin use: without assisted use Qualified Code(s): E11.8 - Type 2 diabetes mellitus with unspecified complications Is this a current diagnosis for this admission?: Yes (8) Essential hypertension Is this a current diagnosis for this admission?: Yes (9) Hyperlipidemia Qualifiers: Hyperlipidemia type: unspecified Qualified Code(s): E78.5 - Hyperlipidemia , unspecified (10) Obesity Is this a current diagnosis for this admission?: Yes (11) Obstructive sleep apnea Is this a current diagnosis for this admission?: Yes (12) Peripheral vascular disease Is this a current diagnosis for this admission?: Yes - Plan Summary Plan Summary: Patient said Dilaudid at the present dose is not helping his pain, he has fracture of the humerus, also on antibiotic for cellulitis. He has multiple comorbid conditions
[2017-04-22] MEDS: ONDANSETRON HCL INJ/PF 4 MG/2 ML SDV IV PRN ×2 (16:06→22:46)
[2017-04-22] MEDS: DIVALPROEX SODIUM 500 MG TAB.SR.24H PO SCH (17:47)
[2017-04-23] MEDS: CLINDAMYCIN 300 MG/D5W RTU 300 MG/50 ML RTUPB IV SCH ×3 (01:14→17:38)
[2017-04-23] MEDS: INSULIN LISPRO 100 UNIT/ML 3 ML VIAL SUBCUT PRN ×4 (08:33→21:21)
[2017-04-23] MEDS: LISINOPRIL 10 MG TABLET PO SCH (10:35)
[2017-04-23] MEDS: FUROSEMIDE 40 MG TABLET PO SCH (10:35)
[2017-04-23] MEDS: MEMANTINE HCL 10 MG TABLET PO SCH ×2 (10:35→21:14)
[2017-04-23] MEDS: DONEPEZIL HCL 5 MG TABLET PO SCH (10:36)
[2017-04-23] MEDS: BUPROPION HCL 75 MG TABLET PO SCH ×2 (10:37→21:14)
[2017-04-23] MEDS: ASPIRIN/DIPYRIDAMOLE 25-200 MG 1 CAP.SR CPMP.12HR PO SCH ×2 (10:37→17:38)
[2017-04-23] MEDS: AMLODIPINE BESYLATE 10 MG TABLET PO SCH (10:37)
[2017-04-23] MEDS: METOPROLOL TARTRATE 25 MG TABLET PO SCH ×2 (10:37→21:17)
[2017-04-23] MEDS: HYDROMORPHONE HCL INJ/PF 2 MG/ML AMPULE IV PRN (11:24)
[2017-04-23] MEDS: ONDANSETRON HCL INJ/PF 4 MG/2 ML SDV IV PRN ×3 (11:25→22:19)
[2017-04-23] MEDS: DIVALPROEX SODIUM 500 MG TAB.SR.24H PO SCH (17:38)
--- NOTE | 2017-04-23 21:57 | PDOC PROGRESS REPORT ---
Subjective Progress Note for:: 04/23/17 Subjective:: Patient is seen by the bedside, the RN said he had a BM today, the plan is to transfer him to a halfway facility for rehabilitation, awaiting bed from discharge planning Reason For Visit: CELLULITIS OF STUMP,MULTIPLE FALLS Physical Exam Vital Signs: Temp Pulse Resp BP Pulse Ox 98.2 F 55 L 16 137/53 H 95 04/23/17 19:56 04/23/17 19:56 04/23/17 19:56 04/23/17 19:56 04/23/17 19:56 Intake & Output 04/22/17 04/23/17 04/24/17 06:59 06:59 06:59 Intake Total 1507 903 472 Output Total 1850 750 300 Balance -343 153 172 Weight 85.5 kg General appearance: PRESENT: no acute distress Eye exam: PRESENT: PERRLA Respiratory exam: PRESENT: clear to auscultation manan Cardiovascular exam: PRESENT: +S1, +S2 GI/Abdominal exam: PRESENT: soft Neurological exam: PRESENT: alert Results Laboratory Results: 04/20/17 15:35 04/20/17 15:35 04/21/17 03:30 Clean Catch Midstream Urine Culture - Final NO GROWTH 2 DAYS Assessment & Plan - Diagnosis (1) Amputation stump infection Is this a current diagnosis for this admission?: Yes (2) Cellulitis of right leg Is this a current diagnosis for this admission?: Yes (3) Fracture of humerus, right, closed Qualifiers: Encounter type: initial encounter Humerus Location: surgical neck Fracture morphology: unspecified fracture morphology Fracture alignment: displaced Qualified Code(s): S42.211A - Unspecified displaced fracture of surgical neck of right humerus, initial encounter for closed fracture Is this a current diagnosis for this admission?: Yes (4) COPD (chronic obstructive pulmonary disease) Qualifiers: COPD type: unspecified COPD Qualified Code(s): J44.9 - Chronic obstructive pulmonary disease, unspecified Is this a current diagnosis for this admission?: Yes (5) CVA (cerebral vascular accident) Qualifiers: CVA mechanism: unspecified Qualified Code(s): I63.9 - Cerebral infarction, unspecified Is this a current diagnosis for this admission?: Yes (6) Cardiomyopathy Qualifiers: Cardiomyopathy type: unspecified Qualified Code(s): I42.9 - Cardiomyopathy , unspecified Is this a current diagnosis for this admission?: Yes (7) Diabetes Qualifiers: Diabetes mellitus type: type 2 Diabetes mellitus complication status: with unspecified complications Diabetes mellitus longterm insulin use: without director rehabilitation program use Qualified Code(s): E11.8 - Type 2 diabetes mellitus with unspecified complications Is this a current diagnosis for this admission?: Yes (8) Essential hypertension Is this a current diagnosis for this admission?: Yes (9) Hyperlipidemia Qualifiers: Hyperlipidemia type: unspecified Qualified Code(s): E78.5 - Hyperlipidemia , unspecified (10) Obesity Is this a current diagnosis for this admission?: Yes (11) Obstructive sleep apnea Is this a current diagnosis for this admission?: Yes (12) Peripheral vascular disease Is this a current diagnosis for this admission?: Yes
[2017-04-23] MEDS ORDERED: ONDANSETRON HCL INJ/PF 4 MG/2 ML SDV IV ONE (23:00)
[2017-04-24] MEDS: CLINDAMYCIN 300 MG/D5W RTU 300 MG/50 ML RTUPB IV SCH ×3 (02:10→18:31)
[2017-04-24] MEDS: HYDROMORPHONE HCL INJ/PF 2 MG/ML AMPULE IV PRN (09:34)
[2017-04-24] MEDS: LISINOPRIL 10 MG TABLET PO SCH (09:35)
[2017-04-24] MEDS: DONEPEZIL HCL 5 MG TABLET PO SCH (09:36)
[2017-04-24] MEDS: AMLODIPINE BESYLATE 10 MG TABLET PO SCH (09:37)
[2017-04-24] MEDS: ASPIRIN/DIPYRIDAMOLE 25-200 MG 1 CAP.SR CPMP.12HR PO SCH ×2 (09:37→18:31)
[2017-04-24] MEDS: MEMANTINE HCL 10 MG TABLET PO SCH ×2 (09:37→21:47)
[2017-04-24] MEDS: BUPROPION HCL 75 MG TABLET PO SCH ×2 (09:37→21:47)
[2017-04-24] MEDS: METOPROLOL TARTRATE 25 MG TABLET PO SCH ×2 (09:37→21:47)
[2017-04-24] MEDS: FUROSEMIDE 40 MG TABLET PO SCH (09:37)
[2017-04-24] MEDS: INSULIN LISPRO 100 UNIT/ML 3 ML VIAL SUBCUT PRN ×3 (09:47→21:47)
[2017-04-24] MEDS: ONDANSETRON HCL INJ/PF 4 MG/2 ML SDV IV PRN ×2 (09:47→15:28)
[2017-04-24] MEDS ORDERED: PROMETHAZINE HCL INJ 25 MG/1 ML VIAL IV PRN (17:45)
[2017-04-24 18:26] LABS: ABSOLUTE BASOPHILS # (AUTO) 0.1 10^3/uL (0.0-0.2); ABSOLUTE EOSINOPHILS # (AUTO) 0.1 10^3/uL (0.0-0.6); ABSOLUTE LYMPHOCYTES (AUTO) 0.8 10^3/uL (0.5-4.7); ABSOLUTE MONOCYTES (AUTO) 0.6 10^3/uL (0.1-1.4); ABSOLUTE NEUT (AUTO) 9.2 10^3/uL (1.7-8.2); BASOPHILS % (AUTO) 0.7 % (0-2); EOSINOPHILS % (AUTO) 0.6 % (0-6); HEMATOCRIT 38.3 % (37.9-51.0); HEMOGLOBIN 13.2 g/dL (13.5-17.0); LYMPHOCYTES % (AUTO) 7.5 % (13-45); MEAN CORPUSCULAR HEMOGLOBIN 31.4 pg (27.0-33.4); MEAN CORPUSCULAR HGB CONC 34.5 g/dL (32.0-36.0); MEAN CORPUSCULAR VOLUME 91 fl (80-97); MONOCYTES % (AUTO) 5.8 % (3-13); PLATELET COUNT 231 10^3/uL (150-450); RED BLOOD COUNT 4.21 10^6/uL (4.35-5.55); RED CELL DISTRIBUTION WIDTH 13.2 % (11.5-14.0); SEGMENTED NEUTROPHILS % (AUTO) 85.4 % (42-78); TOTAL CELLS COUNTED % (AUTO) 100 %; WHITE BLOOD COUNT 10.8 10^3/uL (4.0-10.5)
[2017-04-24] MEDS: DIVALPROEX SODIUM 500 MG TAB.SR.24H PO SCH (18:31)
--- NOTE | 2017-04-24 18:36 | RADIOLOGY REPORT (SQ) ---
EXAM DESCRIPTION: KUB/ABDOMEN (SINGLE VIEW) COMPLETED DATE/TIME: 04/24/2017 6:20 pm REASON FOR STUDY: vomiting COMPARISON: 12/09/2012 NUMBER OF VIEWS: One view. TECHNIQUE: Supine radiographic image of the abdomen acquired. LIMITATIONS: None. FINDINGS: BOWEL GAS PATTERN: Normal bowel gas pattern. No dilated loops. CONSTIPATION: moderate CALCIFICATIONS: No suspicious calcifications. SOFT TISSUES: No gross mass or suggestion of organomegaly. HARDWARE: Surgical aly. BONES: No acute fracture. No worrisome bone lesions. OTHER: No other significant finding. IMPRESSION: NO RADIOGRAPHIC EVIDENCE FOR ACUTE ABDOMINAL DISEASE. Fecal impaction. Moderate Constipation. TECHNICAL DOCUMENTATION: JOB ID: [id number] [employer] [facility]- All Rights Reserved Reading location - IP/workstation name: [email or web address]
[2017-04-24 18:37] LABS: ALANINE AMINOTRANSFERASE 22 U/L (21-72); ALKALINE PHOSPHATASE 66 U/L (38-126); ANION GAP 13 (5-19); ASPARTATE AMINO TRANSFERASE 15 U/L (17-59); BILIRUBIN,DIRECT 0.2 mg/dL (0.0-0.4); BILIRUBIN,TOTAL 0.5 mg/dL (0.2-1.3); BLOOD UREA NITROGEN 19 mg/dL (7-20); CALCIUM 9.3 mg/dL (8.4-10.2); CARBON DIOXIDE 31 mmol/L (22-30); CHLORIDE 92 mmol/L (98-107); GLUCOSE 303 mg/dL (75-110); POTASSIUM 5.3 mmol/L (3.6-5.0); SODIUM 136.4 mmol/L (137-145); TOTAL PROTEIN 6.2 g/dL (6.3-8.2)
--- NOTE | 2017-04-24 19:38 | PDOC PROGRESS REPORT ---
Subjective Progress Note for:: 04/24/17 Subjective:: Patient was seen by the bedside, he complained of nausea vomiting constipation, KUB was done, it showed constipation Reason For Visit: CELLULITIS OF STUMP,MULTIPLE FALLS Physical Exam Vital Signs: Temp Pulse Resp BP Pulse Ox 97.3 F 50 L 18 139/44 H 96 04/24/17 16:00 04/24/17 16:00 04/24/17 16:00 04/24/17 16:00 04/24/17 16:00 Intake & Output 04/23/17 04/24/17 04/25/17 06:59 06:59 06:59 Intake Total 903 1332 210 Output Total 750 1400 700 Balance 890 -88 -894 Weight 85.5 kg 85.6 kg General appearance: PRESENT: no acute distress Eye exam: PRESENT: PERRLA Respiratory exam: PRESENT: clear to auscultation manan Cardiovascular exam: PRESENT: +S1, +S2 GI/Abdominal exam: PRESENT: soft Neurological exam: PRESENT: alert Skin exam: PRESENT: dry Results Laboratory Results: 04/24/17 18:15 04/24/17 18:15 04/24/17 04/24/17 18:15 18:15 WBC 10.8 H RBC 4.21 L Hgb 13.2 L Hct 38.3 MCV 91 MCH 31.4 MCHC 34.5 RDW 13.2 Plt Count 231 Seg Neutrophils % 85.4 H Lymphocytes % 7.5 L Monocytes % 5.8 Eosinophils % 0.6 Basophils % 0.7 Absolute Neutrophils 9.2 H Absolute Lymphocytes 0.8 Absolute Monocytes 0.6 Absolute Eosinophils 0.1 Absolute Basophils 0.1 Sodium 136.4 L Potassium 5.3 H Chloride 92 L Carbon Dioxide 31 H Anion Gap 13 BUN 19 Creatinine 0.88 Est GFR ( Amer) > 60 Est GFR (Non-Af Amer) > 60 Glucose 303 H Calcium 9.3 Total Bilirubin 0.5 AST 15 L ALT 22 Alkaline Phosphatase 66 Total Protein 6.2 L Albumin 4.0 Impressions: KUB X-Ray 04/24/17 00:00 IMPRESSION: NO RADIOGRAPHIC EVIDENCE FOR ACUTE ABDOMINAL DISEASE. Fecal impaction. Moderate Constipation. Assessment & Plan - Diagnosis (1) Amputation stump infection Is this a current diagnosis for this admission?: Yes (2) Cellulitis of right leg Is this a current diagnosis for this admission?: Yes (3) Fracture of humerus, right, closed Qualifiers: Encounter type: initial encounter Humerus Location: surgical neck Fracture morphology: unspecified fracture morphology Fracture alignment: displaced Qualified Code(s): S42.211A - Unspecified displaced fracture of surgical neck of right humerus, initial encounter for closed fracture Is this a current diagnosis for this admission?: Yes (4) COPD (chronic obstructive pulmonary disease) Qualifiers: COPD type: unspecified COPD Qualified Code(s): J44.9 - Chronic obstructive pulmonary disease, unspecified Is this a current diagnosis for this admission?: Yes (5) CVA (cerebral vascular accident) Qualifiers: CVA mechanism: unspecified Qualified Code(s): I63.9 - Cerebral infarction, unspecified Is this a current diagnosis for this admission?: Yes (6) Cardiomyopathy Qualifiers: Cardiomyopathy type: unspecified Qualified Code(s): I42.9 - Cardiomyopathy , unspecified Is this a current diagnosis for this admission?: Yes (7) Diabetes Qualifiers: Diabetes mellitus type: type 2 Diabetes mellitus complication status: with unspecified complications Diabetes mellitus terminal gauger insulin use: without prison use Qualified Code(s): E11.8 - Type 2 diabetes mellitus with unspecified complications Is this a current diagnosis for this admission?: Yes (8) Essential hypertension Is this a current diagnosis for this admission?: Yes (9) Hyperlipidemia Qualifiers: Hyperlipidemia type: unspecified Qualified Code(s): E78.5 - Hyperlipidemia , unspecified (10) Obesity Is this a current diagnosis for this admission?: Yes (11) Obstructive sleep apnea Is this a current diagnosis for this admission?: Yes (12) Peripheral vascular disease Is this a current diagnosis for this admission?: Yes (13) Vomiting Qualifiers: Vomiting type: unspecified Nausea presence: with nausea Is this a current diagnosis for this admission?: Yes (14) Constipation Qualifiers: Constipation type: unspecified constipation type Qualified Code(s): K59.00 - Constipation, unspecified Is this a current diagnosis for this admission?: Yes Plan: Enema administered
[2017-04-25] MEDS: CLINDAMYCIN 300 MG/D5W RTU 300 MG/50 ML RTUPB IV SCH ×3 (01:37→17:26)
[2017-04-25] MEDS: OXYCODONE-ACETAMINOPHEN 5-325 MG TABLET PO PRN ×2 (06:27→10:11)
[2017-04-25 07:19] LABS: ABSOLUTE EOSINOPHILS # (AUTO) 0.2 10^3/uL (0.0-0.6); ABSOLUTE LYMPHOCYTES (AUTO) 1.5 10^3/uL (0.5-4.7); ABSOLUTE MONOCYTES (AUTO) 0.6 10^3/uL (0.1-1.4); ABSOLUTE NEUT (AUTO) 3.8 10^3/uL (1.7-8.2); BASOPHILS % (AUTO) 0.6 % (0-2); EOSINOPHILS % (AUTO) 2.6 % (0-6); HEMATOCRIT 34.8 % (37.9-51.0); HEMOGLOBIN 12.1 g/dL (13.5-17.0); LYMPHOCYTES % (AUTO) 24.5 % (13-45); MEAN CORPUSCULAR HEMOGLOBIN 31.2 pg (27.0-33.4); MEAN CORPUSCULAR HGB CONC 34.6 g/dL (32.0-36.0); MEAN CORPUSCULAR VOLUME 90 fl (80-97); MONOCYTES % (AUTO) 9.9 % (3-13); PLATELET COUNT 224 10^3/uL (150-450); RED BLOOD COUNT 3.87 10^6/uL (4.35-5.55); RED CELL DISTRIBUTION WIDTH 13.5 % (11.5-14.0); SEGMENTED NEUTROPHILS % (AUTO) 62.4 % (42-78); TOTAL CELLS COUNTED % (AUTO) 100 %
[2017-04-25 07:31] LABS: ALANINE AMINOTRANSFERASE 22 U/L (21-72); ALBUMIN 3.2 g/dL (3.5-5.0); ALKALINE PHOSPHATASE 53 U/L (38-126); ANION GAP 7 (5-19); ASPARTATE AMINO TRANSFERASE 11 U/L (17-59); BILIRUBIN,DIRECT 0.4 mg/dL (0.0-0.4); BILIRUBIN,TOTAL 0.5 mg/dL (0.2-1.3); BLOOD UREA NITROGEN 20 mg/dL (7-20); CALCIUM 8.9 mg/dL (8.4-10.2); CARBON DIOXIDE 30 mmol/L (22-30); CHLORIDE 99 mmol/L (98-107); GLUCOSE 181 mg/dL (75-110); POTASSIUM 4.5 mmol/L (3.6-5.0); SODIUM 135.9 mmol/L (137-145); TOTAL PROTEIN 5.6 g/dL (6.3-8.2)
[2017-04-25] MEDS: MEMANTINE HCL 10 MG TABLET PO SCH ×2 (10:09→21:51)
[2017-04-25] MEDS: LISINOPRIL 10 MG TABLET PO SCH (10:10)
[2017-04-25] MEDS: FUROSEMIDE 40 MG TABLET PO SCH (10:10)
[2017-04-25] MEDS: DONEPEZIL HCL 5 MG TABLET PO SCH (10:10)
[2017-04-25] MEDS: ASPIRIN/DIPYRIDAMOLE 25-200 MG 1 CAP.SR CPMP.12HR PO SCH ×2 (10:10→18:11)
[2017-04-25] MEDS: BUPROPION HCL 75 MG TABLET PO SCH ×2 (10:11→21:51)
[2017-04-25] MEDS: AMLODIPINE BESYLATE 10 MG TABLET PO SCH (10:12)
[2017-04-25] MEDS: METOPROLOL TARTRATE 25 MG TABLET PO SCH ×2 (10:25→21:52)
[2017-04-25] MEDS: INSULIN LISPRO 100 UNIT/ML 3 ML VIAL SUBCUT PRN ×3 (14:15→21:52)
[2017-04-25] MEDS: DIVALPROEX SODIUM 500 MG TAB.SR.24H PO SCH (18:11)
--- NOTE | 2017-04-25 20:24 | PDOC PROGRESS REPORT ---
Subjective Progress Note for:: 04/25/17 Subjective:: Patient is seen by the bedside, the RN said he had a BM today, the plan is to transfer him to a skilled nursing facility for rehabilitation, awaiting bed from discharge planning Reason For Visit: CELLULITIS OF STUMP,MULTIPLE FALLS Physical Exam Vital Signs: Temp Pulse Resp BP Pulse Ox 97.4 F 65 18 114/61 98 04/25/17 16:00 04/25/17 16:00 04/25/17 16:00 04/25/17 16:00 04/25/17 16:00 Intake & Output 04/24/17 04/25/17 04/26/17 06:59 06:59 06:59 Intake Total 1332 680 690 Output Total 1400 1750 1200 Balance -68 -9720 -510 Weight 85.6 kg 83.4 kg General appearance: PRESENT: no acute distress Eye exam: PRESENT: PERRLA Respiratory exam: PRESENT: clear to auscultation manan Cardiovascular exam: PRESENT: +S1, +S2 GI/Abdominal exam: PRESENT: soft Results Laboratory Results: 04/25/17 06:37 04/25/17 06:37 04/25/17 04/25/17 06:37 06:37 WBC 6.0 RBC 3.87 L Hgb 12.1 L Hct 34.8 L MCV 90 MCH 31.2 MCHC 34.6 RDW 13.5 Plt Count 224 Seg Neutrophils % 62.4 Lymphocytes % 24.5 Monocytes % 9.9 Eosinophils % 2.6 Basophils % 0.6 Absolute Neutrophils 3.8 Absolute Lymphocytes 1.5 Absolute Monocytes 0.6 Absolute Eosinophils 0.2 Absolute Basophils 0.0 Sodium 135.9 L Potassium 4.5 Chloride 99 Carbon Dioxide 30 Anion Gap 7 BUN 20 Creatinine 1.09 Est GFR ( Amer) > 60 Est GFR (Non-Af Amer) > 60 Glucose 181 H Calcium 8.9 Total Bilirubin 0.5 AST 11 L ALT 22 Alkaline Phosphatase 53 Total Protein 5.6 L Albumin 3.2 L 04/20/17 16:15 Blood Blood Culture - Final NO GROWTH IN 5 DAYS 04/20/17 15:35 Blood Blood Culture - Final NO GROWTH IN 5 DAYS Impressions: KUB X-Ray 04/24/17 00:00 IMPRESSION: NO RADIOGRAPHIC EVIDENCE FOR ACUTE ABDOMINAL DISEASE. Fecal impaction. Moderate Constipation. Assessment & Plan - Diagnosis (1) Amputation stump infection Is this a current diagnosis for this admission?: Yes (2) Cellulitis of right leg Is this a current diagnosis for this admission?: Yes (3) Fracture of humerus, right, closed Qualifiers: Encounter type: initial encounter Humerus Location: surgical neck Fracture morphology: unspecified fracture morphology Fracture alignment: displaced Qualified Code(s): S42.211A - Unspecified displaced fracture of surgical neck of right humerus, initial encounter for closed fracture Is this a current diagnosis for this admission?: Yes (4) COPD (chronic obstructive pulmonary disease) Qualifiers: COPD type: unspecified COPD Qualified Code(s): J44.9 - Chronic obstructive pulmonary disease, unspecified Is this a current diagnosis for this admission?: Yes (5) CVA (cerebral vascular accident) Qualifiers: CVA mechanism: unspecified Qualified Code(s): I63.9 - Cerebral infarction, unspecified Is this a current diagnosis for this admission?: Yes (6) Cardiomyopathy Qualifiers: Cardiomyopathy type: unspecified Qualified Code(s): I42.9 - Cardiomyopathy , unspecified Is this a current diagnosis for this admission?: Yes (7) Diabetes Qualifiers: Diabetes mellitus type: type 2 Diabetes mellitus complication status: with unspecified complications Diabetes mellitus meterman insulin use: without senior care use Qualified Code(s): E11.8 - Type 2 diabetes mellitus with unspecified complications Is this a current diagnosis for this admission?: Yes (8) Essential hypertension Is this a current diagnosis for this admission?: Yes (9) Hyperlipidemia Qualifiers: Hyperlipidemia type: unspecified Qualified Code(s): E78.5 - Hyperlipidemia , unspecified (10) Obesity Is this a current diagnosis for this admission?: Yes (11) Obstructive sleep apnea Is this a current diagnosis for this admission?: Yes (12) Peripheral vascular disease Is this a current diagnosis for this admission?: Yes (13) Vomiting Qualifiers: Vomiting type: unspecified Nausea presence: with nausea Is this a current diagnosis for this admission?: Yes (14) Constipation Qualifiers: Constipation type: unspecified constipation type Qualified Code(s): K59.00 - Constipation, unspecified Is this a current diagnosis for this admission?: Yes
[2017-04-26] MEDS: CLINDAMYCIN 300 MG/D5W RTU 300 MG/50 ML RTUPB IV SCH ×3 (02:44→17:37)
[2017-04-26] MEDS: BUPROPION HCL 75 MG TABLET PO SCH ×2 (10:41→22:28)
[2017-04-26] MEDS: ASPIRIN/DIPYRIDAMOLE 25-200 MG 1 CAP.SR CPMP.12HR PO SCH ×2 (10:41→17:36)
[2017-04-26] MEDS: LISINOPRIL 10 MG TABLET PO SCH (10:41)
[2017-04-26] MEDS: DONEPEZIL HCL 5 MG TABLET PO SCH (10:41)
[2017-04-26] MEDS: METOPROLOL TARTRATE 25 MG TABLET PO SCH ×2 (10:41→22:29)
[2017-04-26] MEDS: MEMANTINE HCL 10 MG TABLET PO SCH ×2 (10:41→22:28)
[2017-04-26] MEDS: INSULIN LISPRO 100 UNIT/ML 3 ML VIAL SUBCUT PRN ×4 (10:42→22:28)
[2017-04-26] MEDS: AMLODIPINE BESYLATE 10 MG TABLET PO SCH (10:42)
[2017-04-26] MEDS: FUROSEMIDE 40 MG TABLET PO SCH (10:42)
[2017-04-26] MEDS: DIVALPROEX SODIUM 500 MG TAB.SR.24H PO SCH (17:37)
--- NOTE | 2017-04-26 22:29 | PDOC PROGRESS REPORT ---
Subjective Progress Note for:: 04/26/17 Subjective:: Patient was seen by the bedside there is improvement in the cellulitis, he has less vomiting, the plan is to transfer patient to a [facility] for rehabilitation Reason For Visit: CELLULITIS OF STUMP,MULTIPLE FALLS Physical Exam Vital Signs: Temp Pulse Resp BP Pulse Ox 98.2 F 73 20 157/70 H 96 04/26/17 16:00 04/26/17 16:00 04/26/17 16:00 04/26/17 16:00 04/26/17 16:00 Intake & Output 04/25/17 04/26/17 04/27/17 06:59 06:59 06:59 Intake Total 680 1290 1156 Output Total 1750 2150 1550 Balance -1070 -860 -394 Weight 83.4 kg General appearance: PRESENT: no acute distress, well-developed, well-nourished Head exam: PRESENT: atraumatic, normocephalic Eye exam: PRESENT: conjunctiva pink, EOMI, PERRLA. ABSENT: scleral icterus Ear exam: PRESENT: normal external ear exam Mouth exam: PRESENT: moist, tongue midline Neck exam: PRESENT: full ROM. ABSENT: carotid bruit, JVD, lymphadenopathy, thyromegaly Cardiovascular exam: PRESENT: RRR, +S1, +S2 Vascular exam: PRESENT: normal capillary refill GI/Abdominal exam: PRESENT: normal bowel sounds, soft Rectal exam: PRESENT: deferred Neurological exam: PRESENT: alert. ABSENT: motor sensory deficit Psychiatric exam: PRESENT: appropriate affect, normal mood Skin exam: PRESENT: dry, intact, warm Results Laboratory Results: 04/25/17 06:37 04/25/17 06:37 Impressions: KUB X-Ray 04/24/17 00:00 IMPRESSION: NO RADIOGRAPHIC EVIDENCE FOR ACUTE ABDOMINAL DISEASE. Fecal impaction. Moderate Constipation. Assessment & Plan - Diagnosis (1) Amputation stump infection Is this a current diagnosis for this admission?: Yes (2) Cellulitis of right leg Is this a current diagnosis for this admission?: Yes (3) Fracture of humerus, right, closed Qualifiers: Encounter type: initial encounter Humerus Location: surgical neck Fracture morphology: unspecified fracture morphology Fracture alignment: displaced Qualified Code(s): S42.211A - Unspecified displaced fracture of surgical neck of right humerus, initial encounter for closed fracture Is this a current diagnosis for this admission?: Yes (4) COPD (chronic obstructive pulmonary disease) Qualifiers: COPD type: unspecified COPD Qualified Code(s): J44.9 - Chronic obstructive pulmonary disease, unspecified Is this a current diagnosis for this admission?: Yes (5) CVA (cerebral vascular accident) Qualifiers: CVA mechanism: unspecified Qualified Code(s): I63.9 - Cerebral infarction, unspecified Is this a current diagnosis for this admission?: Yes (6) Cardiomyopathy Qualifiers: Cardiomyopathy type: unspecified Qualified Code(s): I42.9 - Cardiomyopathy , unspecified Is this a current diagnosis for this admission?: Yes (7) Diabetes Qualifiers: Diabetes mellitus type: type 2 Diabetes mellitus complication status: with unspecified complications Diabetes mellitus shelter insulin use: without shelter use Qualified Code(s): E11.8 - Type 2 diabetes mellitus with unspecified complications Is this a current diagnosis for this admission?: Yes (8) Essential hypertension Is this a current diagnosis for this admission?: Yes (9) Hyperlipidemia Qualifiers: Hyperlipidemia type: unspecified Qualified Code(s): E78.5 - Hyperlipidemia , unspecified (10) Obesity Is this a current diagnosis for this admission?: Yes (11) Obstructive sleep apnea Is this a current diagnosis for this admission?: Yes (12) Peripheral vascular disease Is this a current diagnosis for this admission?: Yes (13) Vomiting Qualifiers: Vomiting type: unspecified Nausea presence: with nausea Is this a current diagnosis for this admission?: Yes (14) Constipation Qualifiers: Constipation type: unspecified constipation type Qualified Code(s): K59.00 - Constipation, unspecified Is this a current diagnosis for this admission?: Yes
[2017-04-27] MEDS: CLINDAMYCIN 300 MG/D5W RTU 300 MG/50 ML RTUPB IV SCH ×2 (02:52→10:06)
[2017-04-27] MEDS: DONEPEZIL HCL 5 MG TABLET PO SCH (10:06)
[2017-04-27] MEDS: LISINOPRIL 10 MG TABLET PO SCH (10:06)
[2017-04-27] MEDS: FUROSEMIDE 40 MG TABLET PO SCH (10:06)
[2017-04-27] MEDS: ASPIRIN/DIPYRIDAMOLE 25-200 MG 1 CAP.SR CPMP.12HR PO SCH ×2 (10:06→17:39)
[2017-04-27] MEDS: INSULIN LISPRO 100 UNIT/ML 3 ML VIAL SUBCUT PRN ×3 (10:06→16:59)
[2017-04-27] MEDS: METOPROLOL TARTRATE 25 MG TABLET PO SCH ×2 (10:06→22:24)
[2017-04-27] MEDS: BUPROPION HCL 75 MG TABLET PO SCH ×2 (10:06→22:24)
[2017-04-27] MEDS: AMLODIPINE BESYLATE 10 MG TABLET PO SCH (10:06)
[2017-04-27] MEDS: MEMANTINE HCL 10 MG TABLET PO SCH ×2 (10:06→22:24)
[2017-04-27] MEDS: DIVALPROEX SODIUM 500 MG TAB.SR.24H PO SCH (17:38)
--- NOTE | 2017-04-27 20:55 | PDOC TRANSFER SUMMARY ---
General - Admit/Disc Date/PCP Admission Date/Primary Care Provider: 04/23/17 14:15 Discharge Date: 04/29/17 - Discharge Diagnosis (1) Amputation stump infection Is this a current diagnosis for this admission?: Yes (2) Cellulitis of right leg Is this a current diagnosis for this admission?: Yes (3) Fracture of humerus, right, closed Is this a current diagnosis for this admission?: Yes (4) COPD (chronic obstructive pulmonary disease) Is this a current diagnosis for this admission?: Yes (5) CVA (cerebral vascular accident) Is this a current diagnosis for this admission?: Yes (6) Cardiomyopathy Is this a current diagnosis for this admission?: Yes (7) Diabetes Is this a current diagnosis for this admission?: Yes (8) Essential hypertension Is this a current diagnosis for this admission?: Yes (9) Hyperlipidemia Is this a current diagnosis for this admission?: Yes (10) Obesity Is this a current diagnosis for this admission?: Yes (11) Obstructive sleep apnea Is this a current diagnosis for this admission?: Yes (12) Peripheral vascular disease Is this a current diagnosis for this admission?: Yes (13) Vomiting Is this a current diagnosis for this admission?: Yes (14) Constipation Is this a current diagnosis for this admission?: Yes - Additional Information Prescriptions: Acetaminophen 325 mg PO Q6H #120 tablet Home Medications: Amlodipine Besylate [Norvasc 10 mg Tablet] 10 mg PO DAILY 04/20/17 Aspirin/Dipyridamole [Aggrenox 25 mg-200 mg Capsule] 1 cap PO BID 04/20/17 Bupropion HCl [Wellbutrin 75 mg Tablet] 75 mg PO Q12 04/20/17 Divalproex Sodium [Depakote ER 500 mg Tab.sr] 500 mg PO QPM 04/20/17 Docusate Sodium [Colace 100 mg Capsule] 100 mg PO DAILYP PRN 04/20/17 Donepezil HCl [Aricept] 20 mg PO DAILY 04/20/17 Furosemide [Lasix 40 mg Tablet] 40 mg PO DAILY 04/20/17 Lisinopril [Zestril] 40 mg PO DAILY 04/20/17 Memantine HCl [Namenda 10 mg Tablet] 10 mg PO Q12 04/20/17 Metoprolol Tartrate [Lopressor 25 mg Tablet] 12.5 mg PO Q12 04/20/17 Acetaminophen 325 mg PO Q6H #120 tablet 04/27/17 History of Present Illness Admission Date/PCP: 04/23/17 14:15 History of Present Illness: MAHSA CORREA is a 71 year old male, he fell yesterday at home when he attempted to stay off is right BKA using his crutches but the crutches got caught up in the corner of his couch, he lost his balance fell forward and sustained fracture of the right humerus. He was seen in the emergency room for evaluation of the fall, x-ray was done, it showed displaced fracture involving the surgical neck of the humerus, there is osteopenia. He came to the office today for evaluation of redness and pain of the stump suggesting cellulitis it is warm to touch. He has multiple comorbid conditions including intracranial hemorrhage, multiple CVA, coronary artery disease status post CABG, dysphagia, right BKA, type 2 diabetes mellitus. Because of the cellulitis and multiple comorbid conditions and the risk of progression of cellulitis to trey sepsis due to his multiple comorbid conditions and the fact that he lives by himself he was directly admitted from the office to the hospital for management of the cellulitis. Hospital Course Hospital Course: .Patient was admitted for the management of cellulitis at the site of the amputation, he fell and sustained fracture of the right humerus, he developed subsequently cellulitis of the right stump. He was admitted to the hospital initially for observation and this was subsequently transitioned into inpatient care was treated with IV antibiotic clindamycin Zofran pain control with opioid therapy the plan is to transfer patient to [facility] for [facility] before discharge from Physical Exam Vital Signs: Temp Pulse Resp BP Pulse Ox 97.3 F 64 14 161/75 H 98 04/27/17 20:03 04/27/17 20:03 04/27/17 20:03 04/27/17 20:03 04/27/17 20:03 Intake & Output 04/26/17 04/27/17 04/28/17 06:59 06:59 06:59 Intake Total 1290 1476 380 Output Total 2150 2350 500 Balance -860 -874 -120 General appearance: PRESENT: no acute distress Eye exam: PRESENT: PERRLA Respiratory exam: PRESENT: clear to auscultation manan Cardiovascular exam: PRESENT: +S1, +S2 GI/Abdominal exam: PRESENT: soft Neurological exam: PRESENT: alert Results Laboratory Results: 04/25/17 06:37 04/25/17 06:37 Impressions: KUB X-Ray 04/24/17 00:00 IMPRESSION: NO RADIOGRAPHIC EVIDENCE FOR ACUTE ABDOMINAL DISEASE. Fecal impaction. Moderate Constipation. Qualifiers - * PATEINT BEING DISCHARGED WITH ANY OF THE FOLLOWING DIAGNOSIS?: No VTE patient discharged on overlapping Therapy?: Yes
[2017-04-27] MEDS ORDERED: HUM INSULIN NPH/REG INSULIN HM 100 UNIT/1 ML 3 ML SUBCUT SCH (22:00)
[2017-04-28] MEDS: LISINOPRIL 10 MG TABLET PO SCH (11:41)
[2017-04-28] MEDS: DONEPEZIL HCL 5 MG TABLET PO SCH (11:42)
[2017-04-28] MEDS: FUROSEMIDE 40 MG TABLET PO SCH (11:43)
[2017-04-28] MEDS: ASPIRIN/DIPYRIDAMOLE 25-200 MG 1 CAP.SR CPMP.12HR PO SCH ×2 (11:43→17:54)
[2017-04-28] MEDS: MEMANTINE HCL 10 MG TABLET PO SCH ×2 (11:43→22:58)
[2017-04-28] MEDS: BUPROPION HCL 75 MG TABLET PO SCH ×2 (11:43→22:58)
[2017-04-28] MEDS: AMLODIPINE BESYLATE 10 MG TABLET PO SCH (11:43)
--- NOTE | 2017-04-28 11:43 | PDOC PROGRESS REPORT ---
Subjective Progress Note for:: 04/28/17 Subjective:: pt is currently doing well Is denied any chest pain denied any shortness of the breath Reason For Visit: CELLULITIS OF STUMP,MULTIPLE FALLS Physical Exam Vital Signs: Temp Pulse Resp BP Pulse Ox 97.5 F 56 L 20 140/55 H 96 04/28/17 07:27 04/28/17 07:27 04/28/17 07:27 04/28/17 07:27 04/28/17 07:27 Intake & Output 04/27/17 04/28/17 04/29/17 06:59 06:59 06:59 Intake Total 1476 846 Output Total 2350 1200 Balance -874 -354 Weight 85 kg General appearance: PRESENT: no acute distress, well-developed, well-nourished Head exam: PRESENT: atraumatic, normocephalic Eye exam: PRESENT: conjunctiva pink, EOMI, PERRLA. ABSENT: scleral icterus Ear exam: PRESENT: normal external ear exam Mouth exam: PRESENT: moist, tongue midline Neck exam: PRESENT: full ROM. ABSENT: carotid bruit, JVD, lymphadenopathy, thyromegaly Respiratory exam: PRESENT: clear to auscultation manan Cardiovascular exam: PRESENT: RRR. ABSENT: diastolic murmur, rubs, systolic murmur Pulses: PRESENT: normal [place] pedis pul, +2 pedal pulses bilateral Vascular exam: PRESENT: normal capillary refill GI/Abdominal exam: PRESENT: normal bowel sounds, soft. ABSENT: distended, guarding, mass, organolmegaly, rebound, tenderness Rectal exam: PRESENT: deferred Extremities exam: PRESENT: right BKA Neurological exam: PRESENT: alert, awake, oriented to person, oriented to place , oriented to time, oriented to situation, CN II-XII grossly intact. ABSENT: motor sensory deficit Psychiatric exam: PRESENT: appropriate affect, normal mood. ABSENT: homicidal ideation, suicidal ideation Skin exam: PRESENT: dry, intact, warm. ABSENT: cyanosis, rash Results Laboratory Results: 04/25/17 06:37 04/25/17 06:37 Impressions: KUB X-Ray 04/24/17 00:00 IMPRESSION: NO RADIOGRAPHIC EVIDENCE FOR ACUTE ABDOMINAL DISEASE. Fecal impaction. Moderate Constipation. Assessment & Plan - Diagnosis (1) Amputation stump infection Is this a current diagnosis for this admission?: Yes (2) BPH (benign prostatic hyperplasia) Qualifiers: Lower urinary tract symptom presence: presence of symptoms unspecified Qualified Code(s): N40.0 - Benign prostatic hyperplasia without lower urinary tract symptoms Is this a current diagnosis for this admission?: Yes (3) COPD (chronic obstructive pulmonary disease) Qualifiers: COPD type: unspecified COPD Qualified Code(s): J44.9 - Chronic obstructive pulmonary disease, unspecified Is this a current diagnosis for this admission?: Yes (4) Congestive heart failure (CHF) Qualifiers: Qualified Code(s): I50.20 - Unspecified systolic (congestive) heart failure Is this a current diagnosis for this admission?: Yes (5) Coronary artery disease Qualifiers: Coronary Disease-Associated Artery/Lesion type: unspecified vessel or lesion type [place] vs. transplanted heart: [place] heart Associated angina: with unspecified angina Qualified Code(s): I25.119 - Atherosclerotic heart disease of [place] coronary artery with unspecified angina pectoris Is this a current diagnosis for this admission?: Yes - Time Time Spent with patient: Less than 15 minutes Medications reviewed and adjusted accordingly: Yes Anticipated discharge: SNF Within: Other - Inpatient Certification Medical Necessity: Need Close Monitoring Due to Risk of Patient Decompensation Post Hospital Care: D/C Line Director Documentation - Plan Summary Plan Summary: Patient is currently doing well waiting to transfer to this nursing facility
[2017-04-28] MEDS: METOPROLOL TARTRATE 25 MG TABLET PO SCH ×2 (11:44→22:58)
[2017-04-28] MEDS ORDERED: HUM INSULIN NPH/REG INSULIN HM 100 UNIT/1 ML 3 ML SUBCUT ONE (12:30)
[2017-04-28] MEDS: DIVALPROEX SODIUM 500 MG TAB.SR.24H PO SCH (17:54)
[2017-04-28] MEDS: OXYCODONE-ACETAMINOPHEN 5-325 MG TABLET PO PRN (23:04)
[2017-04-28] MEDS: HUM INSULIN NPH/REG INSULIN HM 100 UNIT/1 ML 3 ML SUBCUT SCH (23:12)
[2017-04-29 08:07] VITALS: BP 135/56
[2017-04-29] MEDS: DONEPEZIL HCL 5 MG TABLET PO SCH (10:19)
[2017-04-29] MEDS: FUROSEMIDE 40 MG TABLET PO SCH (10:19)
[2017-04-29] MEDS: AMLODIPINE BESYLATE 10 MG TABLET PO SCH (10:20)
[2017-04-29] MEDS: BUPROPION HCL 75 MG TABLET PO SCH (10:20)
[2017-04-29] MEDS: ASPIRIN/DIPYRIDAMOLE 25-200 MG 1 CAP.SR CPMP.12HR PO SCH (10:20)
[2017-04-29] MEDS: METOPROLOL TARTRATE 25 MG TABLET PO SCH (10:21)
[2017-04-29] MEDS: LISINOPRIL 10 MG TABLET PO SCH (10:24)
[2017-04-29] MEDS: HUM INSULIN NPH/REG INSULIN HM 100 UNIT/1 ML 3 ML SUBCUT SCH (10:24)
[2017-04-29] MEDS: MEMANTINE HCL 10 MG TABLET PO SCH (10:24)
--- NOTE | 2017-04-29 10:38 | PDOC PROGRESS REPORT ---
Subjective Progress Note for:: 04/29/17 Subjective:: Was complaining some loose stool but the patient's C. difficile is negative currently denied any abdominal pain no nausea no vomiting no diarrhea she is waiting to go to the rehab today Reason For Visit: CELLULITIS OF STUMP,MULTIPLE FALLS Physical Exam Vital Signs: Temp Pulse Resp BP Pulse Ox 97.4 F 57 L 16 135/56 H 98 04/29/17 07:27 04/29/17 07:27 04/29/17 07:27 04/29/17 07:27 04/29/17 07:27 Intake & Output 04/28/17 04/29/17 04/30/17 06:59 06:59 06:59 Intake Total 846 1296 Output Total 1200 1450 Balance -354 -154 Weight 85 kg General appearance: PRESENT: no acute distress, well-developed, well-nourished Head exam: PRESENT: atraumatic, normocephalic Eye exam: PRESENT: conjunctiva pink, EOMI, PERRLA. ABSENT: scleral icterus Ear exam: PRESENT: normal external ear exam Mouth exam: PRESENT: moist, tongue midline Neck exam: PRESENT: full ROM. ABSENT: carotid bruit, JVD, lymphadenopathy, thyromegaly Respiratory exam: PRESENT: clear to auscultation manan Cardiovascular exam: PRESENT: RRR. ABSENT: diastolic murmur, rubs, systolic murmur Pulses: PRESENT: normal dorsalis pedis pul, +2 pedal pulses bilateral Vascular exam: PRESENT: normal capillary refill GI/Abdominal exam: PRESENT: normal bowel sounds, soft. ABSENT: distended, guarding, mass, organolmegaly, rebound, tenderness Rectal exam: PRESENT: deferred Extremities exam: PRESENT: right BKA Neurological exam: PRESENT: alert, awake, oriented to person, oriented to place , oriented to time, oriented to situation, CN II-XII grossly intact. ABSENT: motor sensory deficit Psychiatric exam: PRESENT: appropriate affect, normal mood. ABSENT: homicidal ideation, suicidal ideation Skin exam: PRESENT: dry, intact, warm. ABSENT: cyanosis, rash Results Laboratory Results: 04/25/17 06:37 04/25/17 06:37 Impressions: KUB X-Ray 04/24/17 00:00 IMPRESSION: NO RADIOGRAPHIC EVIDENCE FOR ACUTE ABDOMINAL DISEASE. Fecal impaction. Moderate Constipation. Assessment & Plan - Diagnosis (1) Amputation stump infection Is this a current diagnosis for this admission?: Yes (2) BPH (benign prostatic hyperplasia) Qualifiers: Lower urinary tract symptom presence: presence of symptoms unspecified Qualified Code(s): N40.0 - Benign prostatic hyperplasia without lower urinary tract symptoms Is this a current diagnosis for this admission?: Yes (3) COPD (chronic obstructive pulmonary disease) Qualifiers: COPD type: unspecified COPD Qualified Code(s): J44.9 - Chronic obstructive pulmonary disease, unspecified Is this a current diagnosis for this admission?: Yes (4) Congestive heart failure (CHF) Qualifiers: Qualified Code(s): I50.20 - Unspecified systolic (congestive) heart failure Is this a current diagnosis for this admission?: Yes (5) Coronary artery disease Qualifiers: Coronary Disease-Associated Artery/Lesion type: unspecified vessel or lesion type [place] vs. transplanted heart: [place] heart Associated angina: with unspecified angina Qualified Code(s): I25.119 - Atherosclerotic heart disease of [place] coronary artery with unspecified angina pectoris Is this a current diagnosis for this admission?: Yes - Time Time Spent with patient: 15-24 minutes Medications reviewed and adjusted accordingly: Yes Anticipated discharge: Acute Rehab, Other Within: Other - Inpatient Certification Medical Necessity: Need Close Monitoring Due to Risk of Patient Decompensation Post Hospital Care: D/C Outside Property Agent Documentation - Plan Summary Plan Summary: Really doing well I do not see any acute stings I think patient should be good to go for rehab right now
== END 2017-04-29 11:19 | disposition short-term general hospital (02) | DRG 565 ==
LOC: 5 14:55 → INTOOBSV 14:55 → OBSVTOIN 04-23 14:15
PROVIDERS: ADMIT Internal Medicine; ATTEND Internal Medicine
DX: T87.43 Infection of amputation stump, right lower extremity (principal); L03.115 Cellulitis of right lower limb; I42.9 Cardiomyopathy, unspecified; I25.10 Atherosclerotic heart disease of native coronary artery without angina pectoris; E78.5 Hyperlipidemia, unspecified; K59.00 Constipation, unspecified; E11.51 Type 2 diabetes mellitus with diabetic peripheral angiopathy without gangrene; J44.9 Chronic obstructive pulmonary disease, unspecified; E11.22 Type 2 diabetes mellitus with diabetic chronic kidney disease; I12.9 Hypertensive chronic kidney disease with stage 1 through stage 4 chronic kidney disease, or unspecified chronic kidney disease; N18.3 Chronic kidney disease, stage 3 (moderate); S42.211D Unspecified displaced fracture of surgical neck of right humerus, subsequent encounter for fracture with routine healing; F17.210 Nicotine dependence, cigarettes, uncomplicated; I25.2 Old myocardial infarction; Y83.5 Amputation of limb(s) as the cause of abnormal reaction of the patient, or of later complication, without mention of misadventure at the time of the procedure; Z79.2 Long term (current) use of antibiotics; Z79.82 Long term (current) use of aspirin; Z79.899 Other long term (current) drug therapy
CPT/HCPCS: 36415; 74018; 80048; 80053; 80076; 82962; 85025; 87040; 87086; 87493; G0378; G0379; J1170; J1815; J2405; J2550; J3490

== ENCOUNTER 2017-05-20 19:06 | Observation (INO) | payer OTHER, MEDICARE, BC ==
--- NOTE | 2017-05-20 19:28 | ER Document Report ---
ED Fall - General Stated Complaint: FALL Time Seen by Provider: 05/20/17 19:17 Notes: Patient is a 71-year-old male that comes by EMS for chief complaint of a fall. Patient states that he was walking in the prosthetic for his right BKA suddenly snapped, causing him to fall forward. He states he mainly hit his right hand/ wrist/elbow/arm on the right side because he was wearing a sling, he has a recently broken right humerus. He did hit his head. He denies back pain, focal numbness or weakness, incontinence. He also reports pain in his hip on the right side. He denies chest pain. He is not on a blood thinner. Past medical history of CVA, PA, diabetes. TRAVEL OUTSIDE OF THE [place] IN LAST 30 DAYS: No - Related data Allergies/Adverse Reactions: No Known Allergies Allergy (Verified 07/11/16 12:35) Past Medical History - General Information source: Patient - Social History Smoking Status: Never Smoker Frequency of alcohol use: None Drug Abuse: None Lives with: Family Family History: DM - Past Medical History Cardiac Medical History: Reports: Hx Coronary Artery Disease, Hx Heart Attack, Hx Hypercholesterolemia, Hx Hypertension Pulmonary Medical History: Reports: Hx COPD, Hx Sleep Apnea Denies: Hx Asthma, Hx Bronchitis, Hx Pneumonia Neurological Medical History: Reports: Hx Cerebrovascular Accident - X3; BRAIN ANUERYSM, STENTS PLACED. Denies: Hx Seizures Endocrine Medical History: Reports: Hx Diabetes Mellitus Type 2 Renal/ Medical History: Denies: Hx Peritoneal Dialysis Musculoskeltal Medical History: Reports Hx Arthritis Psychiatric Medical History: Reports: Hx Dementia, Hx Depression Past Surgical History: Reports: Hx Abdominal Surgery - hernia, Hx Cardiac Catheterization - w/stents, Hx Coronary Stent, Hx Herniorrhaphy, Hx Orthopedic Surgery - RIGHT FOOT LISFRANC'S ORIF, Hx Tonsillectomy - and adnoids - Immunizations Hx Diphtheria, Pertussis, Tetanus Vaccination: Yes Hx Pneumococcal Vaccination: 11/27/11 Review of Systems - Review of Systems Constitutional: No symptoms reported EENT: No symptoms reported Cardiovascular: No symptoms reported Respiratory: No symptoms reported Gastrointestinal: No symptoms reported Genitourinary: No symptoms reported Male Genitourinary: No symptoms reported Musculoskeletal: See HPI Skin: No symptoms reported Hematologic/Lymphatic: No symptoms reported Neurological/Psychological: See HPI Physical Exam - Vital signs Vitals: Resp Pulse Ox 18 98 05/20/17 19:29 05/20/17 19:29 - General General appearance: Appears well In distress: None - alert and well appearing - HEENT Head: Normocephalic, Atraumatic Eyes: Normal Conjunctiva: Normal Extraocular movements intact: Yes Eyelashes: Normal Pupils: PERRL Nasal: Normal Mouth/Lips: Normal Mucous membranes: Normal Pharynx: Normal Neck: Normal - Respiratory Respiratory status: No respiratory distress Chest status: Tender - There is mild tenderness over the general chest wall although this is nonspecific and there are no contusions, soft areas of swelling , or other abnormality noted Breath sounds: Normal. No: Decreased air movement, Wheezing - Cardiovascular Rhythm: Regular. No: Tachycardia Heart sounds: Normal auscultation, S1 appreciated, S2 appreciated - Abdominal Inspection: Normal Tenderness: Nontender. No: Tender - Back Back: Normal, Nontender. No: Tender, Vertebra tenderness - Extremities General lower extremity: Other - Right BKA with broken right prosthetic; tender with palpation over both hips, lower extremity examination otherwise unremarkable Shoulder: Tender - tender over right humerus generally; there is old ecchymosis over the general humerus extending down towards the right elbow Elbow: Tender - tender with some soft tissue swelling over the right elbow; pain with ROM Wrist: Other - tender over right wrist, no specific areas of tenderness ( including no snuff box tenderness) Hand: Abrasion - two skin abrasions over the dorsal right hand, normal ROM, cap refill, sensation - Neurological Neuro grossly intact: Yes Cognition: Normal Orientation: AAOx4 Hanson Coma Scale Eye Opening: Spontaneous Darren Coma Scale Verbal: Oriented Hans[place] Coma Scale Motor: Obeys Commands Hanson Coma Scale Total: 15 Speech: Normal Cranial nerves: Normal Cerebellar coordination: Normal Motor strength normal: LUE, RUE, LLE, RLE Additional motor exam normals: Equal 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 He declines pain medication. On exam it is noted that patient did indeed unfortunately have a failed prosthetic , exam shows that the prosthetic broke through the exterior molding and then bent the lower part sideways. We were unable to fix this as this was already chipped and completely broken initially. I was able to remove the bottom forcefully and then the top we had to cut off. No hip fracture although there is an avulsion fracture at the iliac crest on the right side for patient is tender. Ribs, chest, head, arm/forearm unremarkable. Concerned because patient now has a healing broken humerus, and avulsion fracture of the iliac crest, and a broken prosthetic. He states that the prosthetic at home is not the right size and he cannot walk with it now which is the reason he was given this one. Family member at bedside states they are not equipped to get him around if he cannot walk. Patient also moves with a lot of pain now. Concern about how well patient will do if he goes home. After discussion with patient and family, will discuss with hospitalist for potential admission for these reasons. CBC obtained, generally unremarkable, chemistry with hyperglycemia but no acidosis. I discussed with Dr. Pelayo, on-call for Dr. Keita who is patient's primary provider, patient will be admitted to the medical floor. Patient states understanding and agreement. - Vital Signs Vital signs: Temp Pulse Resp BP Pulse Ox 14 142/64 H 97 05/21/17 00:01 05/21/17 00:01 05/21/17 00:01 - Laboratory Result Diagrams: 05/20/17 22:20 05/20/17 22:20 Laboratory results interpreted by me: 05/20/17 05/20/17 22:20 22:20 RBC 4.00 L Hgb 12.5 L Hct 36.8 L RDW 14.5 H Carbon Dioxide 32 H BUN 29 H Glucose 269 H Discharge - Discharge Clinical Impression: Avulsion fracture, Iliac crest bone pain Fall Qualifiers: Encounter type: initial encounter Qualified Code(s): W19.XXXA - Unspecified fall, initial encounter Hx of BKA Qualifiers: Laterality: right Qualified Code(s): Z89.511 - Acquired absence of right leg below knee Fracture of humerus, right, closed Qualifiers: Encounter type: subsequent encounter Humerus Location: shaft Fracture morphology: other fracture Fracture healing: with routine healing Qualified Code (s): S42.391D - Other fracture of shaft of right humerus, subsequent encounter for fracture with routine healing Condition: Stable Disposition: ADMITTED INPATIENT Admitting Provider: Pierce - makr Keita Unit Admitted: Medical Floor
--- NOTE | 2017-05-20 20:56 | RADIOLOGY REPORT (SQ) ---
EXAM DESCRIPTION: CT HEAD WITHOUT COMPLETED DATE/TIME: 05/20/2017 8:28 pm REASON FOR STUDY: fall, hit head COMPARISON: 06/28/2010, 05/28/2014, 07/13/2016, 04/20/2017 CT brain TECHNIQUE: Axial images acquired through the brain without intravenous contrast. Images reviewed wi th bone, brain and subdural windows. Images stored on PACS. All CT scanners at this facility use dose modulation, iterative reconstruction, and/or weight based d osing when appropriate to reduce radiation dose to as low as reasonably achievable (ALARA). [facility]: Dose Right [facility]: CareDose [facility]: Dose Right [facility]: Teradose 4D [facility]: Smart [employer] RADIATION DOSE: CT Rad equipment meets quality standard of care and radiation dose reduction techniq ues were employed. CTDIvol: 64.6 mGy. DLP: 1163 mGy-cm. mGy. LIMITATIONS: None. FINDINGS: VENTRICLES: Normal size and contour. CEREBRUM: No CT evidence of acute ischemic change, acute intracranial hemorrhage mass effect or midli ne shift. This patient has an aneurysm coil in the anterior communicating artery region, and an old r ight frontotemporal craniotomy with encephalomalacia in the right inferior frontal lobe and lateral b kathryn ganglia. Old encephalomalacia left frontal convexity perisylvian region CEREBELLUM: No masses. No hemorrhage. No alteration of density. No evidence for acute infarction. EXTRAAXIAL SPACES: No fluid collections. No masses. ORBITS AND GLOBE: No intra- or extraconal masses. Post cataract surgery. CALVARIUM: Old right frontotemporal craniotomy PARANASAL SINUSES: No fluid or mucosal thickening. SOFT TISSUES: No mass or hematoma. OTHER: No other significant finding. IMPRESSION: No acute findings. Old anterior communicating artery region aneurysm coil and old right frontotemporal craniotomy with o ld bilateral frontal infarcts as above EVIDENCE OF ACUTE STROKE: No COMMENT: Quality ID # [id number]: Final reports with documentation of one or more dose reduction techniques (e.g., Automated exposure control, adjustment of the mA and/or kV according to patient size, use of iterative reconstruction technique) TECHNICAL DOCUMENTATION: JOB ID: [id number] [employer]- All Rights Reserved Reading location - IP/workstation name: [email or web address]
--- NOTE | 2017-05-20 20:56 | RADIOLOGY REPORT (SQ) ---
EXAM DESCRIPTION: ELBOW RIGHT AP/LAT COMPLETED DATE/TIME: 05/20/2017 8:38 pm REASON FOR STUDY: fall, pain COMPARISON: None. NUMBER OF VIEWS: Two views. TECHNIQUE: AP and lateral radiographic images acquired of the right elbow. LIMITATIONS: Two views, artifact from the backboard on the AP view, artifact from clothing or sheets over the lateral view FINDINGS: MINERALIZATION: Osteopenic BONES: No acute fracture or dislocation. No worrisome bone lesions. JOINT: No effusion. SOFT TISSUES: No soft tissue swelling. No foreign body. OTHER: No other significant finding. IMPRESSION: Limited negative study TECHNICAL DOCUMENTATION: JOB ID: [id number] [employer]- All Rights Reserved Reading location - IP/workstation name: [email or web address]
--- NOTE | 2017-05-20 20:58 | RADIOLOGY REPORT (SQ) ---
EXAM DESCRIPTION: HIP BILATERAL COMPLETED DATE/TIME: 05/20/2017 8:38 pm REASON FOR STUDY: fall, pain COMPARISON: Right hip films 04/20/2017 NUMBER OF VIEWS: Two views. TECHNIQUE: AP pelvis and additional frog-leg view of the right and left hip. LIMITATIONS: None. FINDINGS: MINERALIZATION: Normal. RIGHT HIP: No fracture or dislocation. No worrisome bone lesions. LEFT HIP: No fracture or dislocation. No worrisome bone lesions. PUBIS AND ISCHIUM: No fracture. PELVIS: Acute avulsion fragment off the anterior superior iliac spine, marked with a [place]. SACRUM: No fracture or dislocation. No worrisome bone lesions. LOWER LUMBAR SPINE: Lower lumbar disc space narrowing and facet arthropathy SOFT TISSUES: No findings. OTHER: No other significant finding. IMPRESSION: Acute avulsion fracture, off the right anterior superior iliac spine TECHNICAL DOCUMENTATION: JOB ID: [id number] [employer]- All Rights Reserved Reading location - IP/workstation name: [email or web address]
--- NOTE | 2017-05-20 21:00 | RADIOLOGY REPORT (SQ) ---
EXAM DESCRIPTION: RIBS LEFT W/PA CHEST COMPLETED DATE/TIME: 05/20/2017 8:38 pm REASON FOR STUDY: fall, pain COMPARISON: None. TECHNIQUE: Frontal view of the chest and additional views of the left ribs acquired. NUMBER OF VIEWS: AP chest, left rib detail two views LIMITATIONS: None. FINDINGS: FRONTAL CXR: No pneumothorax. No pleural effusion. No atelectasis or infiltrates. Borde rline cardiomegaly, old CABG. Old right humeral neck fracture RIBS: No displaced rib fractures. No lytic or blastic bony lesions. OTHER: No other significant finding. IMPRESSION: No acute fractures. There is a subacute right proximal humerus fracture COMMENT: SITE OF TRAUMA/COMPLAINT MARKED/STAMP COMPLETED: Yes TECHNICAL DOCUMENTATION: JOB ID: [id number] [employer]- All Rights Reserved Reading location - IP/workstation name: [email or web address]
--- NOTE | 2017-05-20 21:01 | RADIOLOGY REPORT (SQ) ---
EXAM DESCRIPTION: SHOULDER RIGHT 2 OR MORE VIEWS COMPLETED DATE/TIME: 05/20/2017 8:38 pm REASON FOR STUDY: fall, pain COMPARISON: 04/20/2017 NUMBER OF VIEWS: Two views TECHNIQUE: AP and Y-view images acquired of the right shoulder. LIMITATIONS: None. FINDINGS: MINERALIZATION: Osteopenic BONES: Subacute fracture right proximal humeral metaphysis JOINTS: No dislocation. VISUALIZED LUNGS AND RIBS: No pneumothorax. No rib fracture. SOFT TISSUES: No radiopaque foreign body. OTHER: No other significant finding. IMPRESSION: Subacute nonangulated fracture right humeral neck, similar compared to 04/20/2017 TECHNICAL DOCUMENTATION: JOB ID: [id number] [employer]- All Rights Reserved Reading location - IP/workstation name: [email or web address]
[2017-05-20] MEDS ORDERED: MORPHINE SULFATE 10 MG/ML INJ IV ONE (21:24)
[2017-05-20] MEDS ORDERED: ONDANSETRON HCL INJ/PF 4 MG/2 ML SDV IV ONE (21:24)
--- NOTE | 2017-05-20 21:43 | RADIOLOGY REPORT (SQ) ---
EXAM DESCRIPTION: WRIST RIGHT 3 VIEWS COMPLETED DATE/TIME: 05/20/2017 8:52 pm REASON FOR STUDY: fall, pain COMPARISON: None. NUMBER OF VIEWS: Three views. TECHNIQUE: AP, lateral, and oblique radiographic images acquired of the right wrist. LIMITATIONS: None. FINDINGS: MINERALIZATION: Osteopenic BONES: No acute fracture or dislocation. No worrisome bone lesions. Normal alignment. SOFT TISSUES: No soft tissue swelling. No foreign body. OTHER: No other significant finding. IMPRESSION: No acute fracture TECHNICAL DOCUMENTATION: JOB ID: [id number] [employer]- All Rights Reserved Reading location - IP/workstation name: [email or web address]
[2017-05-20 22:34] LABS: ABSOLUTE EOSINOPHILS # (AUTO) 0.2 10^3/uL (0.0-0.6); ABSOLUTE LYMPHOCYTES (AUTO) 1.5 10^3/uL (0.5-4.7); ABSOLUTE MONOCYTES (AUTO) 0.7 10^3/uL (0.1-1.4); ABSOLUTE NEUT (AUTO) 6.7 10^3/uL (1.7-8.2); BASOPHILS % (AUTO) 0.4 % (0-2); EOSINOPHILS % (AUTO) 2.1 % (0-6); HEMATOCRIT 36.8 % (37.9-51.0); HEMOGLOBIN 12.5 g/dL (13.5-17.0); LYMPHOCYTES % (AUTO) 16.2 % (13-45); MEAN CORPUSCULAR HEMOGLOBIN 31.3 pg (27.0-33.4); MEAN CORPUSCULAR HGB CONC 33.9 g/dL (32.0-36.0); MEAN CORPUSCULAR VOLUME 92 fl (80-97); PLATELET COUNT 254 10^3/uL (150-450); RED CELL DISTRIBUTION WIDTH 14.5 % (11.5-14.0); SEGMENTED NEUTROPHILS % (AUTO) 73.3 % (42-78); TOTAL CELLS COUNTED % (AUTO) 100 %; WHITE BLOOD COUNT 9.1 10^3/uL (4.0-10.5)
[2017-05-20 22:49] LABS: ANION GAP 8 (5-19); BLOOD UREA NITROGEN 29 mg/dL (7-20); CARBON DIOXIDE 32 mmol/L (22-30); CHLORIDE 101 mmol/L (98-107); GLUCOSE 269 mg/dL (75-110); POTASSIUM 4.7 mmol/L (3.6-5.0); SODIUM 140.8 mmol/L (137-145)
[2017-05-20] MEDS ORDERED: IPRATROPIUM/ALBUTEROL 0.5-2.5 MG/3 ML AMPUL NEB PRN (22:59)
[2017-05-20] MEDS ORDERED: ACETAMINOPHEN 325 MG TABLET PO PRN (22:59)
[2017-05-20] MEDS ORDERED: OXYCODONE-ACETAMINOPHEN 5-325 MG TABLET PO PRN (22:59)
[2017-05-21 07:05] LABS: ABSOLUTE BASOPHILS # (AUTO) 0.1 10^3/uL (0.0-0.2); ABSOLUTE EOSINOPHILS # (AUTO) 0.2 10^3/uL (0.0-0.6); ABSOLUTE LYMPHOCYTES (AUTO) 1.6 10^3/uL (0.5-4.7); ABSOLUTE MONOCYTES (AUTO) 0.7 10^3/uL (0.1-1.4); BASOPHILS % (AUTO) 1.1 % (0-2); EOSINOPHILS % (AUTO) 3.1 % (0-6); HEMATOCRIT 34.9 % (37.9-51.0); LYMPHOCYTES % (AUTO) 24.3 % (13-45); MEAN CORPUSCULAR HEMOGLOBIN 31.7 pg (27.0-33.4); MEAN CORPUSCULAR HGB CONC 34.6 g/dL (32.0-36.0); MEAN CORPUSCULAR VOLUME 92 fl (80-97); MONOCYTES % (AUTO) 10.8 % (3-13); PLATELET COUNT 208 10^3/uL (150-450); RED CELL DISTRIBUTION WIDTH 14.4 % (11.5-14.0); SEGMENTED NEUTROPHILS % (AUTO) 60.7 % (42-78); TOTAL CELLS COUNTED % (AUTO) 100 %; WHITE BLOOD COUNT 6.5 10^3/uL (4.0-10.5)
[2017-05-21 07:16] LABS: ANION GAP 5 (5-19); BLOOD UREA NITROGEN 28 mg/dL (7-20); CALCIUM 8.7 mg/dL (8.4-10.2); CARBON DIOXIDE 30 mmol/L (22-30); CHLORIDE 107 mmol/L (98-107); GLUCOSE 205 mg/dL (75-110); POTASSIUM 4.7 mmol/L (3.6-5.0); SODIUM 141.8 mmol/L (137-145)
[2017-05-21] MEDS ORDERED: DEXTROSE 40% GEL 15 GM TUBE PO PRN (07:39)
[2017-05-21] MEDS ORDERED: DEXTROSE 50%-WATER SYRINGE 12.5 GM/25 ML DOSE IV PRN (07:39)
[2017-05-21] MEDS ORDERED: DEXTROSE 50%-WATER SYRINGE 25 GM/50 ML DOSE IV PRN (07:39)
[2017-05-21] MEDS ORDERED: GLUCAGON,HUMAN RECOMB 1 MG INJ IM PRN (07:39)
[2017-05-21] MEDS ORDERED: DEXTROSE 40% GEL 15 GM TUBE X 2 PO PRN (07:39)
[2017-05-21] MEDS: DOCUSATE SODIUM 100 MG CAPSULE PO SCH ×2 (11:01→16:58)
[2017-05-21] MEDS: ENOXAPARIN SODIUM INJ 40 MG/0.4 ML DISP.SYRIN SUBCUT SCH ×2 (11:02→16:59)
[2017-05-22] MEDS: INSULIN LISPRO 100 UNIT/ML 3 ML VIAL SUBCUT PRN ×4 (00:48→22:29)
[2017-05-22 06:45] LABS: ABSOLUTE EOSINOPHILS # (AUTO) 0.2 10^3/uL (0.0-0.6); ABSOLUTE LYMPHOCYTES (AUTO) 1.6 10^3/uL (0.5-4.7); ABSOLUTE MONOCYTES (AUTO) 0.6 10^3/uL (0.1-1.4); ABSOLUTE NEUT (AUTO) 3.4 10^3/uL (1.7-8.2); BASOPHILS % (AUTO) 0.7 % (0-2); EOSINOPHILS % (AUTO) 2.8 % (0-6); HEMATOCRIT 36.2 % (37.9-51.0); HEMOGLOBIN 12.3 g/dL (13.5-17.0); LYMPHOCYTES % (AUTO) 27.3 % (13-45); MEAN CORPUSCULAR HEMOGLOBIN 31.2 pg (27.0-33.4); MEAN CORPUSCULAR VOLUME 92 fl (80-97); MONOCYTES % (AUTO) 11.1 % (3-13); PLATELET COUNT 222 10^3/uL (150-450); RED BLOOD COUNT 3.95 10^6/uL (4.35-5.55); RED CELL DISTRIBUTION WIDTH 14.2 % (11.5-14.0); SEGMENTED NEUTROPHILS % (AUTO) 58.1 % (42-78); TOTAL CELLS COUNTED % (AUTO) 100 %; WHITE BLOOD COUNT 5.8 10^3/uL (4.0-10.5)
[2017-05-22 07:22] LABS: ANION GAP 5 (5-19); BLOOD UREA NITROGEN 17 mg/dL (7-20); CARBON DIOXIDE 32 mmol/L (22-30); CHLORIDE 102 mmol/L (98-107); GLUCOSE 196 mg/dL (75-110); POTASSIUM 4.2 mmol/L (3.6-5.0); SODIUM 138.6 mmol/L (137-145)
--- NOTE | 2017-05-22 09:21 | Physician Advisory Note ---
Physician Advisor ProgressNote .: Pursuant to the plan for [facility], I have reviewed the medical record for this patient. Physician Advisor Statement: Appropriately Obs status unless he develops acute medical issue that requires hospital care beyond the long-term care he's needing now. (Unfortunate catch-22 scenario - just needs SNF level care, but can't get without 3 Inpt nights.) CK
[2017-05-22] MEDS: DOCUSATE SODIUM 100 MG CAPSULE PO SCH ×2 (10:16→18:28)
--- NOTE | 2017-05-22 16:47 | PDOC H&P ---
History of Present Illness Admission Date/PCP: 05/20/17 23:08 VINOD MICHELLE MD History of Present Illness: MAHSA CORREA is a 71 year old male, he has multiple comorbid conditions he was walking to the grocery store to get food, is prosthetics snapped causing him to lose balance fell forward sustaining injury to his wrist elbow shoulder on the right side. He came to the emergency room he was evaluated x-ray was done no fracture was demonstrated.. He was recently admitted in this hospital when he had cellulitis of the stump was [facility] at that time he also had fracture of the humerus. X-ray of the pelvic bone did not demonstrate any fracture but there was an avulsion of the iliac crest on the right side ,family was reluctant to take patient home because of his condition, hospital admission was advised. Past Medical History Cardiac Medical History: Reports: Coronary Artery Disease, Myocardial Infarction , Hyperlipidema, Hypertension Pulmonary Medical History: Reports: Chronic Obstructive Pulmonary Disease (COPD) , Sleep Apnea Endocrine Medical History: Reports: Diabetes Mellitus Type 2 Musculoskeltal Medical History: Reports: Arthritis Psychiatric Medical History: Reports: Dementia, Depression Hematology: Denies: Anemia Past Surgical History Past Surgical History: Reports: Cardiac Catheterization - w/stents, Coronary Stent, Herniorrhaphy, Orthopedic Surgery - RIGHT FOOT LISFRANC'S ORIF, Tonsillectomy - and adnoids Social History Lives with: Family Smoking Status: Current Some Day Smoker Cigarettes Packs Per Day: 2 Number of Years Smokin Frequency of Alcohol Use: None Hx Recreational Drug Use: Yes Drugs: Marijuana Hx Prescription Drug Abuse: No Family History Family History: DM Parental Family History Reviewed: Yes Children Family History Reviewed: Yes Sibling(s) Family History Reviewed.: Yes Medication/Allergy Home Medications: Amlodipine Besylate [Norvasc 10 mg Tablet] 5 mg PO DAILY 05/21/17 Aspirin/Dipyridamole [Aggrenox 25 mg-200 mg Capsule] 1 each PO BID 05/21/17 Bupropion HCl [Wellbutrin 75 Mg Tablet] 75 mg PO Q12 05/21/17 Divalproex Sodium [Depakote ER 500 mg Tab.sr] 500 mg PO QPM 05/21/17 Docusate Sodium [Colace 100 mg Capsule] 100 mg PO DAILYP PRN 05/21/17 Donepezil HCl [Aricept] 20 mg PO DAILY 05/21/17 Lisinopril [Prinivil 40 mg Tablet] 40 mg PO DAILY 05/21/17 Memantine HCl [Namenda 10 mg Tablet] 10 mg PO BID 05/21/17 Metoprolol Tartrate [Lopressor 25 mg Tablet] 12.5 mg PO Q12 05/21/17 Morphine Sulfate [Morphine Ir 15 Mg Tablet] 15 mg PO Q4HP PRN 05/21/17 Mupirocin [Bactroban 2% Ointment 22 gm] 1 applic TP TID 05/21/17 Allergies/Adverse Reactions: No Known Allergies Allergy (Verified 07/11/16 12:35) Review of Systems Constitutional: ABSENT: chills, fever(s), headache(s), weight gain, weight loss Eyes: ABSENT: visual disturbances Ears: ABSENT: hearing changes Cardiovascular: ABSENT: chest pain, dyspnea on exertion, edema, orthropnea, palpitations Respiratory: ABSENT: cough, hemoptysis Gastrointestinal: ABSENT: abdominal pain, constipation, diarrhea, hematemesis, hematochezia, nausea, vomiting Genitourinary: ABSENT: dysuria, hematuria Musculoskeletal: PRESENT: back pain Integumentary: ABSENT: rash, wounds Neurological: ABSENT: abnormal gait, abnormal speech, confusion, dizziness, focal weakness, syncope Psychiatric: ABSENT: anxiety, depression, homidical ideation, suicidal ideation Endocrine: ABSENT: cold intolerance, heat intolerance, menstrual abnormalities, polydipsia, polyuria Hematologic/Lymphatic: ABSENT: easy bleeding, easy bruising, lymphadenopathy Physical Exam Vital Signs: Temp Pulse Resp BP Pulse Ox 98.0 F 68 16 153/63 H 99 05/22/17 15:06 05/22/17 15:06 05/22/17 15:06 05/22/17 15:06 05/22/17 15:06 Intake & Output 05/21/17 05/22/17 05/23/17 06:59 06:59 06:59 Intake Total 0 2299 720 Output Total 2300 675 Balance 0 -1 45 Weight 107.955 kg 106.2 kg General appearance: PRESENT: no acute distress, well-developed, well-nourished Head exam: PRESENT: atraumatic, normocephalic Eye exam: PRESENT: conjunctiva pink, EOMI, PERRLA Ear exam: PRESENT: normal external ear exam Mouth exam: PRESENT: moist, tongue midline Neck exam: PRESENT: full ROM Respiratory exam: PRESENT: clear to auscultation manan Cardiovascular exam: PRESENT: RRR, +S1, +S2, systolic murmur Pulses: PRESENT: normal dorsalis pedis pul, +2 pedal pulses bilateral Vascular exam: PRESENT: normal capillary refill GI/Abdominal exam: PRESENT: normal bowel sounds, soft Rectal exam: PRESENT: deferred Extremities exam: PRESENT: right BKA Neurological exam: PRESENT: alert Psychiatric exam: PRESENT: appropriate affect, normal mood Skin exam: PRESENT: dry, intact, warm Results Laboratory Results: 05/22/17 06:20 05/22/17 06:20 05/22/17 05/22/17 06:20 06:20 WBC 5.8 RBC 3.95 L Hgb 12.3 L Hct 36.2 L MCV 92 MCH 31.2 MCHC 34.0 RDW 14.2 H Plt Count 222 Seg Neutrophils % 58.1 Lymphocytes % 27.3 Monocytes % 11.1 Eosinophils % 2.8 Basophils % 0.7 Absolute Neutrophils 3.4 Absolute Lymphocytes 1.6 Absolute Monocytes 0.6 Absolute Eosinophils 0.2 Absolute Basophils 0.0 Sodium 138.6 Potassium 4.2 Chloride 102 Carbon Dioxide 32 H Anion Gap 5 BUN 17 Creatinine 0.72 Est GFR ( Amer) > 60 Est GFR (Non-Af Amer) > 60 Glucose 196 H Calcium 9.0 Impressions: Head CT 05/20/17 19:24 IMPRESSION: No acute findings. 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 There is a subacute right proximal humerus fracture Shoulder X-Ray 05/20/17 19:25 IMPRESSION: Subacute nonangulated fracture right humeral neck, similar compared to 04/20/2017 Wrist X-Ray 05/20/17 19:25 IMPRESSION: No acute fracture Assessment & Plan - Diagnosis (1) Iliac crest bone pain Is this a current diagnosis for this admission?: Yes (2) Avulsion fracture Is this a current diagnosis for this admission?: Yes (3) Fall Qualifiers: Encounter type: initial encounter Qualified Code(s): W19.XXXA - Unspecified fall, initial encounter Is this a current diagnosis for this admission?: Yes (4) Fracture of humerus, right, closed Qualifiers: Encounter type: subsequent encounter Humerus Location: shaft Fracture morphology: other fracture Fracture healing: with routine healing Qualified Code(s): S42.391D - Other fracture of shaft of right humerus, subsequent encounter for fracture with routine healing Is this a current diagnosis for this admission?: Yes (5) COPD (chronic obstructive pulmonary disease) Qualifiers: Is this a current diagnosis for this admission?: Yes (6) CVA (cerebral vascular accident) Is this a current diagnosis for this admission?: Yes (7) Cardiomyopathy Qualifiers: Is this a current diagnosis for this admission?: Yes - Plan Summary Plan Summary: Patient was admitted for management and observation
[2017-05-22] MEDS ORDERED: MORPHINE SULFATE IR 15 MG TABLET PO PRN (17:16)
[2017-05-22] MEDS ORDERED: DOCUSATE SODIUM 100 MG CAPSULE PO PRN (17:16)
[2017-05-22] MEDS ORDERED: DONEPEZIL HCL PO SCH (17:30)
[2017-05-22] MEDS: ASPIRIN/DIPYRIDAMOLE 25-200 MG 1 CAP.SR CPMP.12HR PO SCH (18:26)
[2017-05-22] MEDS: LISINOPRIL 10 MG TABLET PO SCH (18:26)
[2017-05-22] MEDS: DIVALPROEX SODIUM 500 MG TAB.SR.24H PO SCH (18:27)
[2017-05-22] MEDS: DONEPEZIL HCL 5 MG TABLET PO SCH (18:27)
[2017-05-22] MEDS: AMLODIPINE BESYLATE 10 MG TABLET PO SCH (18:27)
[2017-05-22] MEDS: MUPIROCIN 2% OINTMENT 22 GM TP SCH (18:28)
[2017-05-22] MEDS: MEMANTINE HCL 10 MG TABLET PO SCH (18:28)
[2017-05-22] MEDS: METOPROLOL TARTRATE 25 MG TABLET PO SCH (22:28)
[2017-05-22] MEDS: BUPROPION HCL 75 MG TABLET PO SCH (22:28)
[2017-05-23 06:40] LABS: ABSOLUTE EOSINOPHILS # (AUTO) 0.2 10^3/uL (0.0-0.6); ABSOLUTE LYMPHOCYTES (AUTO) 1.6 10^3/uL (0.5-4.7); ABSOLUTE MONOCYTES (AUTO) 0.7 10^3/uL (0.1-1.4); ABSOLUTE NEUT (AUTO) 3.8 10^3/uL (1.7-8.2); BASOPHILS % (AUTO) 0.6 % (0-2); EOSINOPHILS % (AUTO) 2.7 % (0-6); HEMATOCRIT 36.2 % (37.9-51.0); HEMOGLOBIN 12.2 g/dL (13.5-17.0); LYMPHOCYTES % (AUTO) 25.3 % (13-45); MEAN CORPUSCULAR HGB CONC 33.8 g/dL (32.0-36.0); MEAN CORPUSCULAR VOLUME 92 fl (80-97); MONOCYTES % (AUTO) 11.5 % (3-13); PLATELET COUNT 223 10^3/uL (150-450); RED BLOOD COUNT 3.93 10^6/uL (4.35-5.55); RED CELL DISTRIBUTION WIDTH 14.3 % (11.5-14.0); SEGMENTED NEUTROPHILS % (AUTO) 59.9 % (42-78); TOTAL CELLS COUNTED % (AUTO) 100 %; WHITE BLOOD COUNT 6.4 10^3/uL (4.0-10.5)
[2017-05-23 06:56] LABS: ANION GAP 12 (5-19); BLOOD UREA NITROGEN 13 mg/dL (7-20); CALCIUM 9.1 mg/dL (8.4-10.2); CARBON DIOXIDE 26 mmol/L (22-30); CHLORIDE 98 mmol/L (98-107); GLUCOSE 224 mg/dL (75-110); POTASSIUM 4.5 mmol/L (3.6-5.0)
[2017-05-23] MEDS: INSULIN LISPRO 100 UNIT/ML 3 ML VIAL SUBCUT PRN ×4 (08:51→21:43)
[2017-05-23] MEDS: METOPROLOL TARTRATE 25 MG TABLET PO SCH ×2 (10:40→21:31)
[2017-05-23] MEDS: ASPIRIN/DIPYRIDAMOLE 25-200 MG 1 CAP.SR CPMP.12HR PO SCH ×2 (10:42→17:30)
[2017-05-23] MEDS: BUPROPION HCL 75 MG TABLET PO SCH ×2 (10:44→21:43)
[2017-05-23] MEDS: MEMANTINE HCL 10 MG TABLET PO SCH ×2 (10:45→17:30)
[2017-05-23] MEDS: MUPIROCIN 2% OINTMENT 22 GM TP SCH ×3 (10:46→17:36)
[2017-05-23] MEDS: DOCUSATE SODIUM 100 MG CAPSULE PO SCH ×2 (10:53→18:07)
[2017-05-23] MEDS: ENOXAPARIN SODIUM INJ 40 MG/0.4 ML DISP.SYRIN SUBCUT SCH (10:53)
[2017-05-23] MEDS: DIVALPROEX SODIUM 500 MG TAB.SR.24H PO SCH (17:28)
[2017-05-23] MEDS: LISINOPRIL 10 MG TABLET PO SCH (17:29)
[2017-05-23] MEDS: DONEPEZIL HCL 5 MG TABLET PO SCH (17:30)
[2017-05-23] MEDS: AMLODIPINE BESYLATE 10 MG TABLET PO SCH (17:31)
--- NOTE | 2017-05-23 20:07 | PDOC DISCHARGE SUMMARY ---
General - Admit/Disc Date/PCP Admission Date/Primary Care Provider: 05/20/17 23:08 VINOD MICHELLE MD Discharge Date: 05/23/17 - Discharge Diagnosis (1) Iliac crest bone pain Is this a current diagnosis for this admission?: Yes (2) Avulsion fracture Is this a current diagnosis for this admission?: Yes (3) Fall Is this a current diagnosis for this admission?: Yes (4) Fracture of humerus, right, closed Is this a current diagnosis for this admission?: Yes (5) COPD (chronic obstructive pulmonary disease) Is this a current diagnosis for this admission?: Yes (6) CVA (cerebral vascular accident) Is this a current diagnosis for this admission?: Yes (7) Cardiomyopathy Is this a current diagnosis for this admission?: Yes - Additional Information Home Medications: Amlodipine Besylate [Norvasc 10 mg Tablet] 5 mg PO DAILY 05/21/17 Aspirin/Dipyridamole [Aggrenox 25 mg-200 mg Capsule] 1 each PO BID 05/21/17 Bupropion HCl [Wellbutrin 75 mg Tablet] 75 mg PO Q12 05/21/17 Divalproex Sodium [Depakote ER 500 mg Tab.sr] 500 mg PO QPM 05/21/17 Docusate Sodium [Colace 100 mg Capsule] 100 mg PO DAILYP PRN 05/21/17 Donepezil HCl [Aricept] 20 mg PO DAILY 05/21/17 Lisinopril [Prinivil 40 mg Tablet] 40 mg PO DAILY 05/21/17 Memantine HCl [Namenda 10 mg Tablet] 10 mg PO BID 05/21/17 Metoprolol Tartrate [Lopressor 25 mg Tablet] 12.5 mg PO Q12 05/21/17 Morphine Sulfate [Morphine Ir 15 mg Tablet] 15 mg PO Q4HP PRN 05/21/17 Mupirocin [Bactroban 2% Ointment 22 gm] 1 applic TP TID 05/21/17 History of Present Illness History of Present Illness: MAHSA CORREA is a 71 year old male, he has multiple comorbid conditions he was walking to the grocery store to get food, is prosthetics snapped causing him to lose balance fell forward sustaining injury to his wrist elbow shoulder on the right side. He came to the emergency room he was evaluated x-ray was done no fracture was demonstrated.. He was recently admitted in this hospital when he had cellulitis of the stump was transferred to [facility] for rehabilitation at that time he also had fracture of the humerus. X-ray of the pelvic bone did not demonstrate any fracture but there was an avulsion of the iliac crest on the right side ,family was reluctant to take patient home because of his condition, hospital admission was advised. Hospital Course Hospital Course: Patient was admitted for the management of injuries sustained from a fall, he was manage conservatively, he was brought in for observation. Physical Exam Vital Signs: Temp Pulse Resp BP Pulse Ox 98.1 F 56 L 18 124/56 L 97 05/23/17 15:30 05/23/17 15:30 05/23/17 15:30 05/23/17 15:30 05/23/17 15:30 Intake & Output 05/22/17 05/23/17 05/24/17 06:59 06:59 06:59 Intake Total 2299 1442 1200 Output Total 2300 1225 Balance -1 217 1200 Weight 106.2 kg 105.8 kg General appearance: PRESENT: no acute distress, well-developed, well-nourished Head exam: PRESENT: atraumatic, normocephalic Eye exam: PRESENT: conjunctiva pink, EOMI, PERRLA Ear exam: PRESENT: normal external ear exam Mouth exam: PRESENT: moist, tongue midline Neck exam: PRESENT: full ROM Respiratory exam: PRESENT: clear to auscultation manan Cardiovascular exam: PRESENT: RRR, +S1, +S2 Pulses: PRESENT: normal dorsalis pedis pul, +2 pedal pulses bilateral Vascular exam: PRESENT: normal capillary refill GI/Abdominal exam: PRESENT: normal bowel sounds, soft Rectal exam: PRESENT: deferred Extremities exam: PRESENT: right BKA Neurological exam: PRESENT: alert Psychiatric exam: PRESENT: appropriate affect, normal mood Skin exam: PRESENT: dry, intact, warm. ABSENT: cyanosis, rash Results Laboratory Results: 05/23/17 05:57 05/23/17 05:57 05/23/17 05/23/17 05:57 05:57 WBC 6.4 RBC 3.93 L Hgb 12.2 L Hct 36.2 L MCV 92 MCH 31.0 MCHC 33.8 RDW 14.3 H Plt Count 223 Seg Neutrophils % 59.9 Lymphocytes % 25.3 Monocytes % 11.5 Eosinophils % 2.7 Basophils % 0.6 Absolute Neutrophils 3.8 Absolute Lymphocytes 1.6 Absolute Monocytes 0.7 Absolute Eosinophils 0.2 Absolute Basophils 0.0 Sodium 136.0 L Potassium 4.5 Chloride 98 Carbon Dioxide 26 Anion Gap 12 BUN 13 Creatinine 0.70 Est GFR ( Amer) > 60 Est GFR (Non-Af Amer) > 60 Glucose 224 H Calcium 9.1 Impressions: Head CT 05/20/17 19:24 IMPRESSION: No acute findings. 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 There is a subacute right proximal humerus fracture Shoulder X-Ray 05/20/17 19:25 IMPRESSION: Subacute nonangulated fracture right humeral neck, similar compared to 04/20/2017 Wrist X-Ray 05/20/17 19:25 IMPRESSION: No acute fracture Qualifiers - * PATEINT BEING DISCHARGED WITH ANY OF THE FOLLOWING DIAGNOSIS?: No VTE patient discharged on overlapping Therapy?: Yes
[2017-05-24] MEDS: INSULIN LISPRO 100 UNIT/ML 3 ML VIAL SUBCUT PRN (08:42)
[2017-05-24 08:51] VITALS: BP 140/63
[2017-05-24] MEDS: BUPROPION HCL 75 MG TABLET PO SCH (10:25)
[2017-05-24] MEDS: MEMANTINE HCL 10 MG TABLET PO SCH (10:25)
[2017-05-24] MEDS: METOPROLOL TARTRATE 25 MG TABLET PO SCH (10:25)
[2017-05-24] MEDS: ENOXAPARIN SODIUM INJ 40 MG/0.4 ML DISP.SYRIN SUBCUT SCH (10:26)
[2017-05-24] MEDS: MUPIROCIN 2% OINTMENT 22 GM TP SCH (10:26)
[2017-05-24] MEDS: DOCUSATE SODIUM 100 MG CAPSULE PO SCH (10:26)
[2017-05-24] MEDS: ASPIRIN/DIPYRIDAMOLE 25-200 MG 1 CAP.SR CPMP.12HR PO SCH (10:26)
== END 2017-05-24 11:50 | disposition home health service (06) ==
LOC: ER 19:06 → INTOOBSV 23:08 → EH 23:08 → 4S 05-21 01:10
PROVIDERS: ADMIT Family Medicine; ATTEND Internal Medicine
DX: S32.311A Displaced avulsion fracture of right ilium, initial encounter for closed fracture (principal); S42.391A Other fracture of shaft of right humerus, initial encounter for closed fracture; W19.XXXA Unspecified fall, initial encounter; Z89.511 Acquired absence of right leg below knee; I25.10 Atherosclerotic heart disease of native coronary artery without angina pectoris; I25.2 Old myocardial infarction; I10 Essential (primary) hypertension; J44.9 Chronic obstructive pulmonary disease, unspecified; E11.9 Type 2 diabetes mellitus without complications; F17.210 Nicotine dependence, cigarettes, uncomplicated; S09.90XA Unspecified injury of head, initial encounter
CPT/HCPCS: 99285; 96374; 96375; 36415 ×4; 82962 ×4; 85025 ×4; 80048 ×4; 73070; 73522; 71101; 73030; 73110; 70450; 97530; 97110 ×2; 97163; G0378 ×4; J1815 ×4; J2270; J1650; J2405; J3490; G8978; G8979

== ENCOUNTER → 2017-09-07 | Outpatient (CLI) | payer MEDICARE, BC ==
--- NOTE | 2017-09-07 15:05 | RADIOLOGY REPORT (SQ) ---
EXAM DESCRIPTION: CT HEAD WITHOUT COMPLETED DATE/TIME: 09/07/2017 2:47 pm REASON FOR STUDY: CEREBRAL INFARCTION, UNSPEC (I63.9) I63.9 CEREBRAL INFARCTION, UNSPECIFIED COMPARISON: 05/20/2017 TECHNIQUE: Axial images acquired through the brain without intravenous contrast. Images reviewed wi th bone, brain and subdural windows. Additional sagittal and coronal reconstructions were generated. Images stored on PACS. All CT scanners at this facility use dose modulation, iterative reconstruction, and/or weight based d osing when appropriate to reduce radiation dose to as low as reasonably achievable (ALARA). [facility]: Dose Right [facility]: CareDose [facility]: Dose Right [facility]: Teradose 4D [facility]: Smart Datumate RADIATION DOSE: CT Rad equipment meets quality standard of care and radiation dose reduction techniq ues were employed. CTDIvol: 48.6 mGy. DLP: 978 mGy-cm. mGy. LIMITATIONS: Study is limited somewhat due to artifact related to an aneurysm clip at the approximat e level of the right SIMON. FINDINGS: VENTRICLES: Prominent. CEREBRUM: No masses. No hemorrhage. No midline shift. Areas of low density in the white matter mos t likely due to chronic micro-vascular ischemic change. The previously described encephalomalacia in the right frontal lobe is stable. No evidence for acute infarction. CEREBELLUM: No masses. No hemorrhage. No alteration of density. No evidence for acute infarction. EXTRAAXIAL SPACES: Mild age-related involutional change. No fluid collections. No masses. ORBITS AND GLOBE: No intra- or extraconal masses. Normal contour of globe without masses. CALVARIUM: Post craniotomy changes are again identified in the right frontal region. PARANASAL SINUSES: No fluid or mucosal thickening. SOFT TISSUES: No mass or hematoma. OTHER: Artifact related to an aneurysm clip on the right is again identified. IMPRESSION: MILD CHRONIC CHANGES OF ATROPHY AND MICROVASCULAR ISCHEMIA. Encephalomalacia in the rig ht frontal lobe presumably postsurgical in nature is again identified and appears stable. NO ACUTE P ROCESS. EVIDENCE OF ACUTE STROKE: NO. TECHNICAL DOCUMENTATION: JOB ID: [id number] Quality ID # [id number]: Final reports with documentation of one or more dose reduction techniques (e.g., Au tomated exposure control, adjustment of the mA and/or kV according to patient size, use of iterative reconstruction technique) 2010 [employer]- All Rights Reserved Reading location - IP/workstation name: [email or web address]
== END ==
LOC: RAD 14:13
PROVIDERS: ATTEND Internal Medicine
DX: I63.9 Cerebral infarction, unspecified (principal)
CPT/HCPCS: 70450

== ENCOUNTER 2018-06-06 16:46 | Emergency (ER) | payer MEDICARE, BC ==
[2018-06-06] MEDS ORDERED: ACETAMINOPHEN 325 MG TABLET PO ONE (17:56)
--- NOTE | 2018-06-06 17:59 | ER Document Report ---
ED Medical Screen (RME) - General Chief Complaint: Hip Pain Stated Complaint: FALL/RIGHT SIDE PAIN Time Seen by Provider: 06/06/18 17:45 Primary Care Provider: VINOD MICHELLE MD [Primary Care Provider] - Follow up as needed TRAVEL OUTSIDE OF THE [place] IN LAST 30 DAYS: No - HPI Notes: 06/06/18 17:57 Patient is a 72-year-old male with a history of CVA and coronary artery disease who presents emergency department complaining of right lateral posterior hip pain status post fall 2 days ago. Patient states that his prosthetic leg on the right side caught on a rug when he was letting his dogs out and he fell into the corner of a wall and then hit the chair in the floor with his hip area. Patient states that he has been able to ambulate since then, but does continue to have pain that is sharp. Pain does not radiate. He is eating and drinking without difficulty. He did not hit his head or lose conscience. Denies any headache, fever, head injury, neck pain, changes in vision/mentation/hearing, URI, sore throat, chest pain, palpitations, syncope, cough, shortness of breath, wheeze, dyspnea, abdominal pain, nausea/vomiting/diarrhea, urinary retention, dysuria, hematuria, loss of control of bowel or bladder, numbness/tingling, saddle anesthesia, muscle paralysis/weakness, or rash. Patient will be placed in a gown and more thoroughly evaluated on a table. I have treated and performed a rapid initial assessment of this patient. A comprehensive ED assessment and evaluation of the patient, analysis of test results and completion of medical decision making process will be conducted by additional ED providers. PHYSICAL EXAMINATION: GENERAL: Well-appearing, well-nourished and in no acute distress. A&Ox4. Answers questions appropriately. LUNGS: Breath sounds clear to auscultation bilaterally and equal. No wheezes rales or rhonchi. HEART: Regular rate and rhythm without murmurs, rubs, gallops. MS: + tenderness rt lateral posterior iliac. No vertebral point tenderness. No tenderness to the proximal femur. + BKA, right. - Related Data Allergies/Adverse Reactions: No Known Allergies Allergy (Verified 07/11/16 12:35) Past Medical History - Social History Frequency of alcohol use: None - Past Medical History Cardiac Medical History: Reports: Hx Coronary Artery Disease, Hx Heart Attack, Hx Hypercholesterolemia, Hx Hypertension Pulmonary Medical History: Reports: Hx COPD, Hx Sleep Apnea Denies: Hx Asthma, Hx Bronchitis, Hx Pneumonia Neurological Medical History: Reports: Hx Cerebrovascular Accident - X3; BRAIN ANUERYSM, STENTS PLACED. Denies: Hx Seizures Endocrine Medical History: Reports: Hx Diabetes Mellitus Type 1, Hx Diabetes Mellitus Type 2 Renal/ Medical History: Denies: Hx Peritoneal Dialysis Musculoskeltal Medical History: Reports Hx Arthritis Psychiatric Medical History: Reports: Hx Dementia, Hx Depression Past Surgical History: Reports: Hx Abdominal Surgery - hernia, Hx Cardiac Catheterization - w/stents, Hx Coronary Stent, Hx Herniorrhaphy, Hx Orthopedic Surgery - RIGHT FOOT LISFRANC'S ORIF, Hx Tonsillectomy - and adnoids - Immunizations Hx Diphtheria, Pertussis, Tetanus Vaccination: Yes History of Influenza Vaccine for 11/2016 - 04/2017 Season: Yes Influenza Administration Date for 11/2016 - 04/2017 Season: 11/26/16 Physical Exam - Vital signs Vitals: Temp Pulse Resp BP Pulse Ox 97.4 F 50 L 18 169/63 H 96 06/06/18 16:55 06/06/18 16:55 06/06/18 16:55 06/06/18 16:55 06/06/18 16:55 Course - Vital Signs Vital signs: Temp Pulse Resp BP Pulse Ox 97.4 F 50 L 18 169/63 H 96 06/06/18 16:55 06/06/18 16:55 06/06/18 16:55 06/06/18 16:55 06/06/18 16:55 Doctor's Discharge - Discharge Referrals: VINOD MICHELLE MD [Primary Care Provider] - Follow up as needed
--- NOTE | 2018-06-06 18:36 | RADIOLOGY REPORT (SQ) ---
EXAM DESCRIPTION: HIP RIGHT AP/LATERAL COMPLETED DATE/TIME: 06/06/2018 6:13 pm REASON FOR STUDY: pain posterior lateral superior iliac area COMPARISON: 05/20/2017 and earlier NUMBER OF VIEWS: Two views. TECHNIQUE: AP pelvis and additional frog-leg view of the right hip. LIMITATIONS: None. FINDINGS: MINERALIZATION: Osteopenia. RIGHT HIP: No fracture or dislocation. No worrisome bone lesions. Mild right hip joint space narrow ing, similar to prior with small osteophyte. Small osseous protuberance of the right femoral head ne ck junction. Mild osseous overgrowth of the right greater trochanter representing enthesopathic quintero ges. LEFT HIP: No fracture or dislocation. No worrisome bone lesions. Unchanged mild left hip joint spac e narrowing. Small osseous vertebra and for the left femoral head neck junction. PUBIS AND ISCHIUM: No fracture. PELVIS: No fracture. Osseous overgrowth of the right iliac bone just inferior to the by us, seque lae of prior injury. SACRUM: No fracture or dislocation. No worrisome bone lesions. LOWER LUMBAR SPINE: No fracture or dislocation. No worrisome bone lesions. Degenerative disc disease of the visualized lumbar spine. Scattered vascular calcifications. SOFT TISSUES: Multiple metallic clips project in the visualized pelvis. OTHER: No other significant finding. IMPRESSION: 1. No acute fracture dislocation right hip. 2. Chronic deformity of the right iliac bone, sequelae of prior injury. 3. Similar mild bilateral hip osteoarthrosis. TECHNICAL DOCUMENTATION: JOB ID: [id number] [employer]- All Rights Reserved Reading location - IP/workstation name: [email or web address]
--- NOTE | 2018-06-06 19:59 | ER Document Report ---
ED General - General Chief Complaint: Hip Pain Stated Complaint: FALL/RIGHT SIDE PAIN Time Seen by Provider: 06/06/18 17:45 Primary Care Provider: VINOD MICHELLE MD [Primary Care Provider] - Follow up as needed VJ SHOEMAKER MD [ACTIVE STAFF] - Follow up as needed (This is the number of an orthopedic surgeon: Consider calling him for injections into the shoulder followed by physical therapy.) Mode of Arrival: Ambulatory Information source: Patient Notes: This is a 72-year-old man with a history of CVA, coronary artery disease, old right pelvic fracture status post fall who presents with right iliac wing pain status post fall. He has been able to ambulate. The fall was 3 days ago. TRAVEL OUTSIDE OF THE [place] IN LAST 30 DAYS: No - HPI Onset: Last week Onset/Duration: Sudden Quality of pain: Dull Severity: Mild Pain Level: 1 Associated symptoms: denies: Chest pain, Fever, Shortness of breath Exacerbated by: Movement Relieved by: Remaining still Similar symptoms previously: Yes Recently seen / treated by doctor: No - Related Data Allergies/Adverse Reactions: No Known Allergies Allergy (Verified 07/11/16 12:35) Past Medical History - General Information source: Patient - Social History Smoking Status: Unknown if Ever Smoked Cigarette use (# per day): No Chew tobacco use (# tins/day): No Frequency of alcohol use: None Drug Abuse: None Lives with: Family Family History: DM Patient has suicidal ideation: No Patient has homicidal ideation: No - Past Medical History Cardiac Medical History: Reports: Hx Coronary Artery Disease, Hx Heart Attack, Hx Hypercholesterolemia, Hx Hypertension Pulmonary Medical History: Reports: Hx COPD, Hx Sleep Apnea Denies: Hx Asthma, Hx Bronchitis, Hx Pneumonia Neurological Medical History: Reports: Hx Cerebrovascular Accident - X3; BRAIN ANUERYSM, STENTS PLACED. Denies: Hx Seizures Endocrine Medical History: Reports: Hx Diabetes Mellitus Type 1, Hx Diabetes Mellitus Type 2 Renal/ Medical History: Denies: Hx Peritoneal Dialysis Musculoskeletal Medical History: Reports Hx Arthritis Psychiatric Medical History: Reports: Hx Dementia, Hx Depression Past Surgical History: Reports: Hx Abdominal Surgery - hernia, Hx Cardiac Catheterization - w/stents, Hx Coronary Stent, Hx Herniorrhaphy, Hx Orthopedic Surgery - RIGHT FOOT LISFRANC'S ORIF, Hx Tonsillectomy - and adnoids - Immunizations Hx Diphtheria, Pertussis, Tetanus Vaccination: Yes Hx Pneumococcal Vaccination: 11/27/11 Review of Systems - Review of Systems Constitutional: denies: Chills, Fever EENT: No symptoms reported Cardiovascular: No symptoms reported Respiratory: No symptoms reported Gastrointestinal: No symptoms reported Genitourinary: No symptoms reported Male Genitourinary: No symptoms reported Musculoskeletal: See HPI Skin: No symptoms reported Hematologic/Lymphatic: No symptoms reported Neurological/Psychological: No symptoms reported Physical Exam - Vital signs Vitals: Temp Pulse Resp BP Pulse Ox 97.4 F 50 L 18 169/63 H 96 06/06/18 16:55 06/06/18 16:55 06/06/18 16:55 06/06/18 16:55 06/06/18 16:55 Notes: Physical exam: GENERAL: Patient is alert and oriented x3, no acute distress HEAD: Atraumatic, normocephalic. EYES: Pupils equal round and reactive to light, extraocular movements intact, sclera anicteric, conjunctiva are normal. ENT: TMs normal, nares patent, oropharynx clear without exudates. Moist mucous membranes. NECK: Normal range of motion, supple without obvious mass. LUNGS: Breath sounds clear to auscultation bilaterally and equal. No wheezes rales or rhonchi. HEART: Regular rate and rhythm without murmurs, rubs or gallops. ABDOMEN: Soft, normoactive bowel sounds. No tenderness to palpation. No guarding, no rebound. No masses appreciated. Back: He has tenderness over the posterior iliac crest without any crepitus or skin changes. He has no lower spinal tenderness. EXTREMITIES: Normal range of motion, no pitting or edema. No clubbing or cyanosis. He has a right BKA NEUROLOGICAL: He has a baseline aphasia from a previous stroke. He has a right BKA. PSYCH: Normal mood, normal affect. SKIN: Warm, Dry, normal turgor, no rashes or lesions noted. Course - Vital Signs Vital signs: Temp Pulse Resp BP Pulse Ox 97.1 F 54 L 20 187/70 H 98 06/06/18 20:00 06/06/18 20:00 06/06/18 20:00 06/06/18 20:00 06/06/18 20:00 - Diagnostic Test Radiology reviewed: Image reviewed, Reports reviewed - Shows old injury, no acute fracture. Discharge - Discharge Clinical Impression: Right pelvic contusion Condition: Stable Disposition: HOME, SELF-CARE Additional Instructions: As we discussed, the x-rays show no acute fracture. Your symptoms are consistent with a contusion of the pelvis. Take the pain medicine as prescribed. Follow-up with your doctor as needed. I did put the number of an orthopedic surgeon in case he decided get your right shoulder injected. Also, you can inquire about physical therapy for improved range of motion of the right shoulder. As far as the hip: You can continue the ice/heat as well as the Lidoderm patches. The pain medicine you're taking prescribed as a narcotic. There are several important things you should know about this medicine: 1. This medicine contains Tylenol: It is important that you do not take Tylenol (or acetaminophen) while on this medicine. Tylenol is metabolized by the liver and taking too much Tylenol (acetaminophen) can lay to liver damage and even liver failure. 2. Taking narcotics for too long can lead to physical and mental dependence. Take this medicine only if really needed and in the lowest quantity to achieve pain relief. 3. Do not drink alcohol while on this medicine. Alcohol interacts with narcotics and the combination can be dangerous. 4. Do not drive or operate machinery while on this medicine. 5. Narcotics do cause constipation, so drink plenty of fluids and daily stool softeners. Prescriptions: Oxycodone HCl/Acetaminophen [Percocet 5-325 mg Tablet] 1 tab PO ASDIR PRN #25 tab PRN Reason: Referrals: VINOD MICHELLE MD [Primary Care Provider] - Follow up as needed VJ SHOEMAKER MD [ACTIVE STAFF] - Follow up as needed (This is the number of an orthopedic surgeon: Consider calling him for injections into the shoulder followed by physical therapy.)
[2018-06-06 20:25] VITALS: BP 187/70
== END 2018-06-06 19:55 | disposition home or self-care (01) ==
LOC: ER 16:46
DX: S70.01XA Contusion of right hip, initial encounter (principal); M25.551 Pain in right hip; W19.XXXA Unspecified fall, initial encounter; Z86.73 Personal history of transient ischemic attack (TIA), and cerebral infarction without residual deficits; I25.10 Atherosclerotic heart disease of native coronary artery without angina pectoris
CPT/HCPCS: 99283; 73502; A9270

== ENCOUNTER 2019-12-02 15:07 | Emergency (ER) | payer MEDICARE, BC ==
[2019-12-02 15:32] VITALS: BP 150/63
--- NOTE | 2019-12-02 16:09 | ER Document Report ---
ED Medical Screen (RME) - General Chief Complaint: Rib Pain Stated Complaint: FALL/LEFT RIB PAIN Time Seen by Provider: 12/02/19 15:57 Primary Care Provider: VINOD MICHELLE MD [Primary Care Provider] - Follow up as needed Mode of Arrival: Ambulatory Information source: Patient Notes: 74-year-old male presented to ED for complaint of pain to the left ribs and fl ank area. He states he was walking in the dark last night when he tripped and fell. He does have a right BKA. He states he has a history of cerebral hemorrhage aneurysm. Coronary artery disease. 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 He states he was walking 1 day when he had a stirrup break in his leg they did 2 surgeries and then put him in a cast for 13 weeks the leg became gangrenous and they had a collapsed below the knee. He states he has had an umbilical hernia and 2 ventral hernias and his tonsils removed. He does speak slowly due to the multiple strokes. I have greeted and performed a rapid initial assessment of this patient. A comprehensive ED assessment and evaluation of the patient, analysis of test resu lts and completion of medical decision making process will be conducted by an additional ED providers. TRAVEL OUTSIDE OF THE [place] IN LAST 30 DAYS: No - Related Data Allergies/Adverse Reactions: No Known Allergies Allergy (Verified 07/11/16 12:35) Home Medications: atorvastain, myrbetriq, amlodipine, bupropion, divaloproex, donezepil, gabapentin, jardiance, lisinopril, memantine, metformin, metoprolol, primidone, tamsulosin, rybelsus Past Medical History - Social History Chew tobacco use (# tins/day): No Frequency of alcohol use: None Drug Abuse: Marijuana - Past Medical History Cardiac Medical History: Reports: Hx Coronary Artery Disease, Hx Heart Attack, Hx Hypercholesterolemia, Hx Hypertension Pulmonary Medical History: Reports: Hx COPD, Hx Sleep Apnea Denies: Hx Asthma, Hx Bronchitis, Hx Pneumonia Neurological Medical History: Reports: Hx Cerebrovascular Accident - X3; BRAIN ANUERYSM, STENTS PLACED. Denies: Hx Seizures Endocrine Medical History: Reports: Hx Diabetes Mellitus Type 1, Hx Diabetes Mellitus Type 2 Renal/ Medical History: Denies: Hx Peritoneal Dialysis Musculoskeltal Medical History: Reports Hx Arthritis Psychiatric Medical History: Reports: Hx Dementia, Hx Depression Past Surgical History: Reports: Hx Abdominal Surgery - hernia, Hx Cardiac Catheterization - w/stents, Hx Coronary Stent, Hx Herniorrhaphy, Hx Orthopedic Surgery - RIGHT FOOT LISFRANC'S ORIF, Hx Tonsillectomy - and adnoids - Immunizations Hx Diphtheria, Pertussis, Tetanus Vaccination: Yes Physical Exam - Vital signs Vitals: Temp Pulse Resp BP Pulse Ox 97.9 F 62 16 150/63 H 98 12/02/19 15:31 12/02/19 15:31 12/02/19 15:31 12/02/19 15:31 12/02/19 15:31 Course - Vital Signs Vital signs: Temp Pulse Resp BP Pulse Ox 97.9 F 62 16 150/63 H 98 12/02/19 15:58 12/02/19 15:31 12/02/19 15:31 12/02/19 15:31 12/02/19 15:31 Doctor's Discharge - Discharge Referrals: VINOD MICHELLE MD [Primary Care Provider] - Follow up as needed
--- NOTE | 2019-12-02 16:56 | RADIOLOGY REPORT (SQ) ---
EXAM DESCRIPTION: RIBS LEFT W/PA CHEST IMAGES COMPLETED DATE/TIME: 12/02/2019 4:43 pm REASON FOR STUDY: fall left rib and flank pain COMPARISON: 05/20/2017 TECHNIQUE: Frontal view of the chest and additional views of the left ribs acquired. NUMBER OF VIEWS: Three view. LIMITATIONS: None. FINDINGS: FRONTAL CXR: No pneumothorax. No pleural effusion. No atelectasis or infiltrates. RIBS: No displaced rib fractures. No lytic or blastic bony lesions. OTHER: No other significant finding. IMPRESSION: NO PNEUMOTHORAX. NO DISPLACED RIB FRACTURES. COMMENT: SITE OF TRAUMA/COMPLAINT MARKED/STAMP COMPLETED: NO. TECHNICAL DOCUMENTATION: JOB ID: [id number] [place]-72 2010 [employer]- All Rights Reserved Reading location - IP/workstation name: [email or web address]
[2019-12-02 17:19] LABS: ABSOLUTE EOSINOPHILS # (AUTO) 0.1 10^3/uL (0.0-0.6); ABSOLUTE LYMPHOCYTES (AUTO) 1.6 10^3/uL (0.5-4.7); ABSOLUTE MONOCYTES (AUTO) 0.7 10^3/uL (0.1-1.4); ABSOLUTE NEUT (AUTO) 4.8 10^3/uL (1.7-8.2); BASOPHILS % (AUTO) 0.4 % (0-2); EOSINOPHILS % (AUTO) 0.8 % (0-6); HEMATOCRIT 40.4 % (37.9-51.0); HEMOGLOBIN 14.2 g/dL (13.5-17.0); LYMPHOCYTES % (AUTO) 22.6 % (13-45); MEAN CORPUSCULAR HEMOGLOBIN 32.9 pg (27.0-33.4); MEAN CORPUSCULAR HGB CONC 35.3 g/dL (32.0-36.0); MEAN CORPUSCULAR VOLUME 93 fl (80-97); MONOCYTES % (AUTO) 10.3 % (3-13); PLATELET COUNT 218 10^3/uL (150-450); RED BLOOD COUNT 4.33 10^6/uL (4.35-5.55); RED CELL DISTRIBUTION WIDTH 14.3 % (11.5-14.0); SEGMENTED NEUTROPHILS % (AUTO) 65.9 % (42-78); TOTAL CELLS COUNTED % (AUTO) 100 %; WHITE BLOOD COUNT 7.3 10^3/uL (4.0-10.5)
[2019-12-02 17:28] LABS: INTERNATIONAL RATION (INR) 0.91; PROTHROMBIN TIME 12.5 SEC (11.4-15.4)
[2019-12-02 17:29] LABS: PARTIAL THROMBOPLASTIN TIME 27.8 SEC (23.5-35.8)
[2019-12-02 17:32] LABS: ALBUMIN 4.1 g/dL (3.5-5.0); ALKALINE PHOSPHATASE 58 U/L (38-126); ANION GAP 9 (5-19); ASPARTATE AMINO TRANSFERASE 21 U/L (17-59); BILIRUBIN,DIRECT 0.3 mg/dL (0.0-0.4); BILIRUBIN,TOTAL 0.4 mg/dL (0.2-1.3); BLOOD UREA NITROGEN 24 mg/dL (7-20); CALCIUM 8.8 mg/dL (8.4-10.2); CARBON DIOXIDE 27 mmol/L (22-30); CHLORIDE 107 mmol/L (98-107); GLUCOSE 95 mg/dL (75-110); POTASSIUM 4.7 mmol/L (3.6-5.0); TOTAL PROTEIN 6.6 g/dL (6.3-8.2)
[2019-12-02 17:59] LABS: APPEARANCE,URINE SLIGHTLY-CLOUDY; BILIRUBIN,URINE NEGATIVE (NEGATIVE); COLOR,URINE YELLOW; GLUCOSE, URINE >=500 mg/dL (NEGATIVE); KETONES,URINE NEGATIVE (NEGATIVE); LEUKOCYTE ESTERASE,URINE LARGE (NEGATIVE); NITRITE,URINE NEGATIVE (NEGATIVE); PROTEIN,URINE NEGATIVE (NEGATIVE); UROBILINOGEN,URINE NEGATIVE mg/dL (<2.0)
== END 2019-12-02 21:54 | disposition left against medical advice (07) ==
LOC: ER 15:07
DX: R07.81 Pleurodynia (principal); R10.9 Unspecified abdominal pain; W01.0XXA Fall on same level from slipping, tripping and stumbling without subsequent striking against object, initial encounter; I25.10 Atherosclerotic heart disease of native coronary artery without angina pectoris; E11.9 Type 2 diabetes mellitus without complications; I10 Essential (primary) hypertension; E78.00 Pure hypercholesterolemia, unspecified; Z89.511 Acquired absence of right leg below knee; Z86.73 Personal history of transient ischemic attack (TIA), and cerebral infarction without residual deficits; Z95.1 Presence of aortocoronary bypass graft; Z79.84 Long term (current) use of oral hypoglycemic drugs; I25.2 Old myocardial infarction
CPT/HCPCS: 36415; 80053; 81001; 85025; 85610; 85730; 87086; 87088; 87186; 99281; 99284

== ENCOUNTER 2020-03-11 13:52 | Emergency (ER) | payer OTHER, BC, MEDICARE ==
--- NOTE | 2020-03-11 14:47 | ER Document Report ---
ED Medical Screen (RME) - General Chief Complaint: Diarrhea Stated Complaint: ABDOMINAL PAIN,DIARRHEA Time Seen by Provider: 03/11/20 14:36 Primary Care Provider: VINOD MICHELLE MD [Primary Care Provider] - Follow up as needed Mode of Arrival: Ambulatory Information source: Patient Notes: 74-year-old male patient presented to emergency department chief complaint of diarrhea. Patient reports he has had diarrhea every 45 minutes for the last 6 days. He also reports loss of taste and smell, and nasal congestion. He denies any fever, chills, cough, nausea or vomiting. He denies any known exposure to Covid. Patient is alert, oriented, answering all questions appropriately. No acute distress noted. I have greeted and performed a rapid initial assessment of this patient. A comprehensive ED assessment and evaluation of the patient, analysis of test results and completion of the medical decision making process will be conducted by additional ED providers. I have specifically instructed the patient or family members with the patient to immediately return to any nursing staff should anything change in the patient's condition or with their chief complaint. TRAVEL OUTSIDE OF THE [place] IN LAST 30 DAYS: No - Related Data Allergies/Adverse Reactions: No Known Allergies Allergy (Verified 07/11/16 12:35) Past Medical History - Past Medical History Cardiac Medical History: Reports: Hx Coronary Artery Disease, Hx Heart Attack, Hx Hypercholesterolemia, Hx Hypertension Pulmonary Medical History: Reports: Hx COPD, Hx Sleep Apnea Denies: Hx Asthma, Hx Bronchitis, Hx Pneumonia Neurological Medical History: Reports: Hx Cerebrovascular Accident - X3; BRAIN ANUERYSM, STENTS PLACED. Denies: Hx Seizures Endocrine Medical History: Reports: Hx Diabetes Mellitus Type 1, Hx Diabetes Mellitus Type 2 Renal/ Medical History: Denies: Hx Peritoneal Dialysis Musculoskeltal Medical History: Reports Hx Arthritis Psychiatric Medical History: Reports: Hx Dementia, Hx Depression Past Surgical History: Reports: Hx Abdominal Surgery - hernia, Hx Cardiac Catheterization - w/stents, Hx Coronary Stent, Hx Herniorrhaphy, Hx Orthopedic Surgery - RIGHT FOOT LISFRANC'S ORIF, Hx Tonsillectomy - and adnoids - Immunizations Hx Diphtheria, Pertussis, Tetanus Vaccination: Yes Physical Exam - Vital signs Vitals: Temp Pulse Resp BP Pulse Ox 97.8 F 63 16 112/60 96 03/11/20 14:02 03/11/20 14:02 03/11/20 14:02 03/11/20 14:02 03/11/20 14:02 Course - Vital Signs Vital signs: Temp Pulse Resp BP Pulse Ox 97.8 F 63 16 112/60 96 03/11/20 14:02 03/11/20 14:02 03/11/20 14:02 03/11/20 14:02 03/11/20 14:02 Doctor's Discharge - Discharge Referrals: VINOD MICHELLE MD [Primary Care Provider] - Follow up as needed
[2020-03-11 16:09] LABS: ABSOLUTE LYMPHOCYTES (AUTO) 0.9 10^3/uL (0.5-4.7); ABSOLUTE MONOCYTES (AUTO) 0.7 10^3/uL (0.1-1.4); ABSOLUTE NEUT (AUTO) 3.5 10^3/uL (1.7-8.2); BASOPHILS % (AUTO) 0.7 % (0-2); EOSINOPHILS % (AUTO) 0.4 % (0-6); HEMATOCRIT 43.2 % (37.9-51.0); HEMOGLOBIN 14.8 g/dL (13.5-17.0); MEAN CORPUSCULAR HEMOGLOBIN 32.1 pg (27.0-33.4); MEAN CORPUSCULAR HGB CONC 34.3 g/dL (32.0-36.0); MEAN CORPUSCULAR VOLUME 94 fl (80-97); MONOCYTES % (AUTO) 13.8 % (3-13); PLATELET COUNT 233 10^3/uL (150-450); RED CELL DISTRIBUTION WIDTH 14.7 % (11.5-14.0); SEGMENTED NEUTROPHILS % (AUTO) 67.1 % (42-78); TOTAL CELLS COUNTED % (AUTO) 100 %; WHITE BLOOD COUNT 5.2 10^3/uL (4.0-10.5)
[2020-03-11 16:28] LABS: ALBUMIN 4.1 g/dL (3.5-5.0); ALKALINE PHOSPHATASE 70 U/L (38-126); ANION GAP 10 (5-19); ASPARTATE AMINO TRANSFERASE 21 U/L (17-59); BILIRUBIN,DIRECT 0.2 mg/dL (0.0-0.4); BILIRUBIN,TOTAL 0.4 mg/dL (0.2-1.3); BLOOD UREA NITROGEN 38 mg/dL (7-20); CARBON DIOXIDE 21 mmol/L (22-30); CHLORIDE 103 mmol/L (98-107); GLUCOSE 211 mg/dL (75-110); POTASSIUM 4.8 mmol/L (3.6-5.0); TOTAL PROTEIN 6.7 g/dL (6.3-8.2)
[2020-03-11 17:01] LABS: APPEARANCE,URINE SLIGHTLY-CLOUDY; BILIRUBIN,URINE NEGATIVE (NEGATIVE); COLOR,URINE YELLOW; GLUCOSE, URINE >=500 mg/dL (NEGATIVE); KETONES,URINE TRACE mg/dL (NEGATIVE); LEUKOCYTE ESTERASE,URINE LARGE (NEGATIVE); NITRITE,URINE NEGATIVE (NEGATIVE); PROTEIN,URINE NEGATIVE (NEGATIVE); URINE SPECIFIC GRAVITY 1.025; UROBILINOGEN,URINE NEGATIVE mg/dL (<2.0)
[2020-03-11] MEDS ORDERED: NORMAL SALINE 1000 ML 1,000 ML IV ONE (18:06)
--- NOTE | 2020-03-11 18:06 | ER Document Report ---
ED General - General Chief Complaint: Diarrhea Stated Complaint: ABDOMINAL PAIN,DIARRHEA Time Seen by Provider: 03/11/20 14:36 Primary Care Provider: VINOD MICHELLE MD [ACTIVE STAFF] - Follow up as needed Mode of Arrival: Ambulatory Information source: Patient TRAVEL OUTSIDE OF THE [place] IN LAST 30 DAYS: No - HPI Notes: Patient is a 74-year-old man who presents with ongoing diarrhea x6 days as documented in the midlevel note. He has a little bit of crampy abdominal pain. He denies any chest pain. He has no cough. He has no shortness of breath. He denies any fever or chills. He denies any urinary symptoms. He is otherwise in his usual state of health. The patient has significant comorbidities as he has suffered 3 strokes and 3 heart attacks as well as an amputation of his right leg. However he says other than the diarrhea his health is been pretty stable lately. He denies any other acute symptomatology. - Related Data Allergies/Adverse Reactions: No Known Allergies Allergy (Verified 07/11/16 12:35) Past Medical History - General Information source: Patient - Social History Smoking Status: Never Smoker Frequency of alcohol use: None Drug Abuse: None Family History: DM Patient has homicidal ideation: No - Medical History Medical History: Other Notes: Medical history as documented in electronic health record is reviewed. - Past Medical History Cardiac Medical History: Reports: Hx Coronary Artery Disease, Hx Heart Attack, Hx Hypercholesterolemia, Hx Hypertension Pulmonary Medical History: Reports: Hx COPD, Hx Sleep Apnea Denies: Hx Asthma, Hx Bronchitis, Hx Pneumonia Neurological Medical History: Reports: Hx Cerebrovascular Accident - X3; BRAIN ANUERYSM, STENTS PLACED. Denies: Hx Seizures Endocrine Medical History: Reports: Hx Diabetes Mellitus Type 1, Hx Diabetes Mellitus Type 2 Renal/ Medical History: Denies: Hx Peritoneal Dialysis Musculoskeletal Medical History: Reports Hx Arthritis Psychiatric Medical History: Reports: Hx Dementia, Hx Depression Past Surgical History: Reports: Hx Abdominal Surgery - hernia, Hx Cardiac Catheterization - w/stents, Hx Coronary Stent, Hx Herniorrhaphy, Hx Orthopedic Surgery - RIGHT FOOT LISFRANC'S ORIF, Hx Tonsillectomy - and adnoids - Immunizations Hx Diphtheria, Pertussis, Tetanus Vaccination: Yes Hx Pneumococcal Vaccination: 11/27/11 Review of Systems - Review of Systems Notes: All other systems reviewed are negative or noncontributory except as noted the present illness. Physical Exam - Vital signs Vitals: Temp Pulse Resp BP Pulse Ox 97.8 F 63 16 112/60 96 03/11/20 14:02 03/11/20 14:02 03/11/20 14:02 03/11/20 14:02 03/11/20 14:02 - Notes Notes: General: Well-developed well-nourished elderly gentleman in no acute distress. Vital signs and nursing documentation are reviewed. HEENT: Dry mucous membranes otherwise unremarkable. Neck: Supple no adenopathy. Lungs: Clear to auscultation. Heart: Regular rate and rhythm no murmur rub or gallop. Abdomen: Mild epigastric and right upper and left upper quadrant tenderness. No guarding. No masses. No organomegaly. No lower quadrant tenderness. Extremities: Patient has prosthetic right leg. Extremities are otherwise without clubbing cyanosis or edema. Neuro: No focal neuro deficits. Patient's speech is chronically slowed from his previous strokes. Skin: Poor skin turgor is noted. Course - Re-evaluation Re-evalutation: 03/11/20 19:43 IV saline was ordered at 1807. It was finally started at approximately 1938. Patient remained stable throughout. Plan is that once his fluids are finished he will be discharged home. 03/11/20 21:06 The patient felt much better after IV hydration. We talked about diarrhea management with Pepto-Bismol, Imodium A-D, or glutamine. He will be discharged home to outpatient follow-up. We will call him with the results of any pending testing. Follow-up with his primary care doctor in 3 to 5 days for recheck. - Vital Signs Vital signs: Temp Pulse Resp BP Pulse Ox 97.6 F 66 16 119/60 100 03/11/20 19:35 03/11/20 19:35 03/11/20 19:35 03/11/20 19:35 03/11/20 19:35 - Laboratory Results Result Diagrams: 03/11/20 15:51 03/11/20 15:51 Laboratory Results Interpreted: 03/11/20 03/11/20 03/11/20 15:51 15:51 16:00 RDW 14.7 H [place] % (Auto) 13.8 H Sodium 133.9 L Carbon Dioxide 21 L BUN 38 H Creatinine 1.85 H Est GFR ( Amer) 43 L Est GFR (MDRD) Non-Af 36 L Glucose 211 H Urine Glucose (UA) >=500 H Urine Ketones TRACE H Ur Leukocyte Esterase LARGE H Critical Laboratory Results Reviewed: No Critical Results - Radiology Results Critical Radiology Results Reviewed: No Critical Results Discharge - Discharge Clinical Impression: UTI (urinary tract infection) Qualifiers: Urinary tract infection type: site unspecified Hematuria presence: without hematuria Qualified Code(s): N39.0 - Urinary tract infection, site not specified Diarrhea Qualifiers: Diarrhea type: unspecified type Qualified Code(s): R19.7 - Diarrhea, unspecified Condition: Good Disposition: HOME, SELF-CARE Instructions: COVID-19 Guidance for Persons Under Investigation, Trimethoprim- Sulfa ([facility]), Urinary Tract Infection ([facility]), Diarrhea, Nonspecific ([facility]) Additional Instructions: You can use Pepto-Bismol for diarrhea control, or Imodium-AD. They are both available [id number] without prescription. Follow label directions. Remember you need to use enough of them for long enough period of time for them to be effective. There is a nutritional supplement called glutamine that may also be effective in controlling diarrhea. It is available as a powder that you can mix up in water or juice, or as capsules that you can take. You can find it at most [employer] and [employer] stores. Make an appointment to follow-up with your doctor in 3 to 5 days for recheck. A prescription for an antibiotic called Bactrim DS has been sent to your pharmacy. Please pick this up tomorrow morning and take it twice a day until it is all gone. This is to treat your urinary infection. Return to the emergency department if any concerning symptoms develop. Prescriptions: Sulfamethoxazole/Trimethoprim [Bactrim Ds Tablet] 1 each PO BID #14 tablet Referrals: VINOD MICHELLE MD [ACTIVE STAFF] - Follow up as needed
[2020-03-11 19:37] VITALS: BP 119/60
== END 2020-03-11 21:45 | disposition home or self-care (01) ==
LOC: ER 13:52
DX: R19.7 Diarrhea, unspecified (principal); N39.0 Urinary tract infection, site not specified; R10.9 Unspecified abdominal pain; R10.816 Epigastric abdominal tenderness; R10.812 Left upper quadrant abdominal tenderness; I25.10 Atherosclerotic heart disease of native coronary artery without angina pectoris; I10 Essential (primary) hypertension; I25.2 Old myocardial infarction; J44.9 Chronic obstructive pulmonary disease, unspecified; E11.9 Type 2 diabetes mellitus without complications; Z95.5 Presence of coronary angioplasty implant and graft; Z20.822 Contact with and (suspected) exposure to COVID-19
CPT/HCPCS: 99284; 96360; 36415; 85025; 0202U; 80053; 81001; J7030